=== PATIENT | male | born 1960 | race Caucasian/White ===

== ENCOUNTER 2016-09-28 07:52 | Observation (INO) | payer OTHER ==
[~2016-09-28] VITALS: Ht 162.6 cm; Wt 92.1 kg
[2016-09-28] VITALS (15 sets, daily range): BP systolic 101–177; BP diastolic 58–101
--- NOTE | ~2016-09-28 | H ---
[facility] [place] [address] HISTORY AND PHYSICAL Name: FERNANDO TOLEDO Room #: 203-P DIS Luis Daniel M.R.#: [id number] Admission: 09/28/16 Attend Phys: Simone Wright Discharge: 09/29/16 Date of : 60 Report #: [id number] THIS REPORT FOR: //name// For History and Physical, please see office documentation/handwritten note in the patient's medical record. <ELECTRONICALLY SIGNED> By: Simone Wright MD 10/08/16 1206 1016 Simone Wright MD /
--- NOTE | ~2016-09-28 | CATHLAB ---
[facility] [place] [place] [address] INVASIVE PROCEDURE REPORT Name: FERNANDO TOLEDO Room #: 203-P [facility] IN [facility]#: [id number] Admission: 09/28/16 Attend Phys: Simone Archibald Discharge: 09/29/16 Date of : 60 Date of Service: 10/03/16 2121 Report #: [id number] THIS REPORT FOR: //name// CC: Indira Wright DATE OF SERVICE: 09/28/2016 CARDIAC CATHETERIZATION REPORT INDICATIONS: This is a 55-year-old male patient with known coronary artery disease, recurrent crescendo angina and abnormal noninvasive assessment. PROCEDURES: 1. Left heart catheterization. 2. Left and right coronary angiography. 3. Measurement of left ventricular end-diastolic pressure. 4. Percutaneous revascularization with a Medtronic Resolute 2.5 x 15 mm stent taken to 12 atmospheres, placed in the proximal mid LAD. 5. Supervision of conscious sedation. WELL BLOWER: Simone Wright M.D. BRIEF DESCRIPTION OF PROCEDURE: After informed consent was obtained, the patient was brought to the cardiac catheterization laboratory in stable condition. The patient's right groin was prepped and draped in the usual sterile manner after which lidocaine was then instilled. Utilizing a modified Seldinger technique, the right femoral artery was then accessed. Under fluoroscopic visualization using selective coronary catheters, the right and left coronaries were opacified and visualized. The left ventriculogram was likewise imaged per standard protocol with EDP being measured. Subsequent to this, the sheath was removed, hemostasis achieved. The patient tolerated the procedure well. There were no complications. Planned angiography was . Percutaneous revascularization was appropriate. The 4-Haitian system was then exchanged for a 5-Haitian system and a standard left Everett 4-curve guide was advanced and cannulated through the left coronary ostium. Guidewires also have been utilized for intervention. A 0.014 intracoronary wire was then backloaded on to the stent and advancement of fluoroscopy. The wire was then advanced in the questionable lesion and subsequently a stent was positioned. Verification of location was done via fluoroscopy and cineangiography and the stent was inflated to 12 atmospheres. Result was excellent, without any loss of side branches or distal embolization. The previous stent that was present prior to this lesion had a 25% in-stent restenosis. A standard balloon was then utilized and the stent was re-dilated for a total of greater than 3 minutes inflation. There was no cutting balloon [address] [address] INVASIVE PROCEDURE REPORT Name: FERNANDO TOLEDO Room #: 203-P [facility] IN M.R.#: [id number] Admission: 09/28/16 Attend Phys: Simone Archibald Discharge: 09/29/16 Date of : 60 Date of Service: 10/03/162120 Report #: [id number] or balloon available in the institution. Therefore, a standard balloon was utilized. Subsequent to this, the wire and the balloon were removed and cineangiography final shots and final pressures were obtained. Throughout the entire procedure, Angiomax was utilized as well as continuous oximetric and electrocardiographic monitoring. FINDINGS: 1. RHYTHM: The patient's rhythm was sinus throughout the entire procedure. 2. HEMODYNAMICS: A. Aortic pressure 168/74. B. Left ventricular end-diastolic pressure is 24-26. C. Post-procedure aortic pressure: 168/84. 3. FLUOROSCOPY: Under fluoroscopic visualization, there was evidence of calcific plaquing along the epicardial coronary arteries. There was evidence of prior intracoronary stent placed. 4. ANGIOGRAPHY: This is a right coronary dominant system. A. Left main is normal origin and caliber, bifurcates into the left anterior descending and left circumflex and is free of high-grade disease. B. Left anterior descending is a moderate-caliber vessel, which courses in the anterior interventricular sulcus, giving rise to an early diagonal branch which has a 50% proximal lesion, which is not flow limiting. This vessel then reconstitutes and continues in the anterolateral wall, free of high-grade disease. The LAD proper then has the placement of an entire stent, which has a 70% proximal third re-stenosis. The mid and distal third of the stent appears to be only minimally restenosed, but after the stent is a high-grade 95% to 99% lesion of the LAD proper. The flow through the vessel was somewhat sluggish, but the vessel continues in the anterior interventricular sulcus, giving rise to septal and diagonal branches. C. Left circumflex is a moderate-caliber vessel, gives rise to an early marginal branch. It is free of high-grade disease. The circumflex than continues in the AV groove posteriorly, giving rise to posterolateral branches. D. Right coronary artery is of normal origin and caliber, dominant vessel. Proceeds without significant high-grade lesion, giving rise to an RV marginal branch and proceeding to the crux of the heart where posterior descending artery originates, free of high-grade disease. Posterior wall branch and posterolateral branch are also present. 5. POST-REVASCULARIZATION ANGIOGRAPHY: The left anterior descending artery is unchanged, except for the following: The site appears with high-grade stenosis. The vessel is widely patent. There is no loss of side branch, distal embolization or intraluminal thrombus noted. The proximal third of the previously deployed stent was improved with a 20% to 25% residual noted. [facility] [place] [address] INVASIVE PROCEDURE REPORT Name: PARISFERNANDO Oumar Room #: 203-P DIS IN M.R.#: [id number] Admission: 09/28/16 Attend Phys: Simone Archibald Discharge: 09/29/16 Date of : 60 Date of Service: 10/03/162120 Report #: [id number] IMPRESSION: 1. Coronary artery disease, severe, single vessel. 2. Successful percutaneous revascularization and re-expansion of a prior stent in the left anterior descending. 3. Abnormal hemodynamics. <ELECTRONICALLY SIGNED> By: Simone Wright MD 10/04/16 1317 20 1040 Simone Wright MD /nt
[~2016-09-28 07:52] MED LIST: ALBUTEROL2.5 MG/0.1 INH; ASPIR 8181 MG PO; COMBIVENT RESPIM4 GM IH; FLOVENT DISKU250 MCG IH; GLYBURID-METFO1 EACH PO; LANTUS SUBQ; LORTAB 10 MG-3473 ML PO; METFORMIN HCL500 MG PO
[2016-09-28] MEDS ORDERED: ALBUTEROL2.5 MG/31 INH (08:19)
[2016-09-28] MEDS ORDERED: LISINOPRIL20 MG PO (08:21)
[2016-09-28] MEDS ORDERED: LIPITOR 20 MG T20 M1 PO (08:22)
[2016-09-28] MEDS ORDERED: ASPIRIN325 PO (08:23)
[2016-09-28] MEDS ORDERED: NITROGLYCERIN0.4 MG SUBLING (08:24)
[2016-09-28] MEDS ORDERED: COMBIVENT INH (08:24)
[2016-09-28 08:29] LABS: HEMATOCRIT 43.7 % (42.0-52.0); HEMOGLOBIN 14.7 gm/dL (14.0-18.0); MCH 26.8 pg (26.0-34.0); MCHC 33.7 g/dL (28.0-37.0); MCV 79.4 fL (80.0-100.0); RBC 5.5 mil/uL (4.50-6.00); RDW 13.9 % (10.5-14.5); WBC 7.6 thou/uL (4.0-11.0)
[2016-09-28 08:36] LABS: CALCIUM 8.9 mg/dL (8.5-10.1); CREATININE 1.1 mg/dL (0.7-1.3); POTASSIUM 4.3 mmol/L (3.5-5.1)
[2016-09-29 02:59] VITALS: BP 138/79
[2016-09-29 03:45] LABS: HEMATOCRIT 40.6 % (42.0-52.0); HEMOGLOBIN 13.9 gm/dL (14.0-18.0); MCH 27.1 pg (26.0-34.0); MCHC 34.4 g/dL (28.0-37.0); RBC 5.14 mil/uL (4.50-6.00); RDW 14.3 % (10.5-14.5); WBC 8.8 thou/uL (4.0-11.0)
[2016-09-29 03:50] LABS: CALCIUM 8.5 mg/dL (8.5-10.1); CREATININE 1.1 mg/dL (0.7-1.3); POTASSIUM 3.9 mmol/L (3.5-5.1)
[2016-09-29 08:00] VITALS: BP 160/81
[2016-09-29] MEDS ORDERED: EFFIENT10 MG PO (10:02)
[2016-09-29 11:30] VITALS: BP 160/81
[2016-09-29 15:36] VITALS: BP 160/81
== END 2016-09-29 13:23 | disposition home or self-care (01) ==
LOC: CATH 07:52 → 2N 11:37 → CATH 15:55 → 2N 09-29 13:23
PROVIDERS: Internal Medicine
DX: I25.10 Atherosclerotic heart disease of native coronary artery without angina pectoris (principal); R94.39 Abnormal result of other cardiovascular function study; Z95.5 Presence of coronary angioplasty implant and graft; I10 Essential (primary) hypertension; E78.5 Hyperlipidemia, unspecified

== ENCOUNTER 2017-01-19 11:25 | Inpatient (IN) | payer OTHER ==
[~2017-01-19] VITALS: Ht 162.6 cm; Wt 94.8 kg
--- NOTE | ~2017-01-19 | EKG ---
[address] [place] [address] ELECTROCARDIOGRAM REPORT Name: FERNANDO TOLEDO Room #: 205-[facility] IN M.R.#: [id number] Admission: 01/19/17 Attend Phys: Cash Grigsby MD, Discharge: 01/20/17 Date of : 60 Report #: [id number] THIS REPORT FOR: //name// [facility] ED Test Date: 2017-01-19 Test Time: 11:33:17 Pat Name: FERNANDO TOLEDO Department: Room: [facility] Gender: M Paper Box Cutter: [id number] : 1960 Requested By: Nettie Kan Order Number: [id number] MD: Wyatt Meier Measurements Intervals [place] Rate: 83 P: 55 MS: 208 QRS: 43 QRSD: 91 T: 131 QT: 345 QTc: 406 Interpretive Statements Sinus rhythm Abnormal T, consider ischemia, lateral leads Compared to ECG 08/22/2016 12:55:14 No significant change was found Electronically Signed On 01-21-2017 8:57:02 CDT by Wyatt Meier [email or web address] <ELECTRONICALLY SIGNED> By: Wyatt Meier MD, [facility] 01/21/17 0857 1133 1133 Wyatt Meier MD, [facility] /EPI
--- NOTE | ~2017-01-19 | D ---
[facility] [place] [place] [address] DISCHARGE SUMMARY Name: FERNANDO TOLEDO Room #: 205-P ADM IN M.R.#: [id number] Admission: 01/19/17 Attend Phys: Cash Grigsby MD, Discharge: Date of : 60 Report #: [id number] THIS REPORT FOR: //name// CC: Indira Grigsby The patient is a 56-year-old male admitted with chest pain. This is different than what his anginal type pain was. He had undergone PTCA stent of the LAD proximal to our previously placed stent and redilated that proximal stent in September of this year, so 3 months ago. He has had some equivocal troponin when he came in, but interestingly he has never had a negative troponin. He is completely asymptomatic, walking in the halls, feeling well. No EKG changes are noted. He does have some baseline abnormalities on his EKG with subtle T-wave abnormalities laterally previously noted. He has been compliant with his medications. He works 2 jobs. He has been active. There has been no change on what he has been able to do. He will be discharged to home. I will discuss with Dr. Wright. I believe he is scheduled to see him in the next month or so, but I suspect we will want to push up a stress test to confirm he does not have any ischemia and I will in fact try to arrange an outpatient stress echo this week. He will call with any recurrent chest pain or pressure. His home medications will remain the same. They are aspirin, Effient, Lipitor 40, , insulin, metoprolol tartrate 25 b.i.d., Protonix 20, pioglitazone 15 and the Effient 10. Resume regular aerobic activity. May return to work. Call with any recurrent chest pain or pressure and we will arrange outpatient stress echo this week. DISCHARGE DIAGNOSES: 1. Chest pain with it appears to be chronically elevated troponin (the patient's troponins have never been negative). 2. Coronary artery disease with restenting in the proximal LAD proximal to our prior stent. Originally stent placed in 2015, second stent placed in September 2016, preserved LV function. 3. Hypertension. 4. Hypercholesterolemia. 5. Diabetes. 6. Suspected reflux. Also do recommend bland diet. Avoid citrus, red sauces, cokes and chocolate, obviously spicy, greasy foods. By: 1123 1200 Cash Grigsby MD, FACC /nt
--- NOTE | ~2017-01-19 | EKG ---
[address] [place] [address] ELECTROCARDIOGRAM REPORT Name: FERNANDO TOLEDO Room #: 205[facility] IN M.R.#: [id number] Admission: 01/19/17 Attend Phys: Cash Grigsby MD, Discharge: 01/20/17 Date of : 60 Report #: [id number] THIS REPORT FOR: //name// [facility] Test Date: 2017-01-20 Test Time: 07:50:08 Pat Name: FERNANDO TOLEDO Department: Room: 205 Gender: M Parking Attendant: DOUGLAS : 1960 Requested By: Nettie Kan Order Number: [id number] MD: Wyatt Meier Measurements Intervals [place] Rate: 75 P: 51 [place]: 193 QRS: 39 QRSD: 121 T: 127 QT: 368 QTc: 411 Interpretive Statements Sinus rhythm Abnormal T, consider ischemia, lateral leads Compared to ECG 08/22/2016 12:55:14 No significant change was found Electronically Signed On 01-21-2017 9:05:22 CDT by Wyatt Meier [email or web address] <ELECTRONICALLY SIGNED> By: Wyatt Meier MD, [facility] 01/21/17 0905 0750 0750 Wyatt Meier MD, [facility] /EPI
--- NOTE | ~2017-01-19 | H ---
[facility] [place] [place] [address] HISTORY AND PHYSICAL Name: FERNANDO TOLEDO Room #: 205-P ADM IN M.R.#: [id number] Admission: 01/19/17 Attend Phys: Cash Grigsby MD, Discharge: Date of : 60 Report #: [id number] THIS REPORT FOR: //name// CC: Indira Grigsby DATE OF SERVICE: 01/19/2017 HISTORY OF PRESENT ILLNESS: The patient is a 56-year-old male patient of Dr. Tejeda'hernan and Dr. Wright, who had been stable since his last stent was placed in 09/2016, it was an LAD stent distal to proximal to prior other stent and then prior stent was dilated. The circumflex and the RCA did not have significant disease. 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 He did drive some relief of his chest pain from nitro. He has an equivocal troponin 0.76 and repeat was 0.72. It is interesting that he has never had a negative troponin in this hospital, all troponins have been mildly elevated, so it maybe a chronically elevated troponin issue. In any event, he had no issues until tonight, he has had no pain here, he has no pain in the emergency room, he does have nitro paste and I did give him a shot of Lovenox. He feels well. He is comfortable. He has been compliant with his medications. Chest x-ray is unremarkable. He has been on lisinopril 20, Lipitor 20, Actos 30, metoprolol 25 twice daily, aspirin and Effient. We will restart these and holding lisinopril. PAST MEDICAL HISTORY: Positive for the hypertension, hypercholesterolemia, the stent placement initially in 12/2015 and then restented in 09/2016, diabetes and DJD. ALLERGIES: No known drug allergies. SOCIAL HISTORY: He is . He has 3 children. No current alcohol or tobacco use. He works 2 jobs. FAMILY HISTORY: Negative for premature coronary disease. REVIEW OF SYSTEMS: Negative except for some occasional nocturia. LABORATORY DATA: Troponin was 0.76 and 0.72. Again, I make note that every troponin drawn here in the past has never been negative. Creatinine is 1.3. Potassium 4.9. H and H are 13 and 39, white count is 8.5. PHYSICAL EXAMINATION: [facility] [address] [place] [address] HISTORY AND PHYSICAL Name: FERNANDO TOLEDO Room #: 205-P [facility] IN M.R.#: [id number] Admission: 01/19/17 Attend Phys: Cash Grigsby MD, Discharge: Date of : 60 Report #: [id number] GENERAL: He is pleasant and alert. He is in no distress. VITAL SIGNS: Blood pressure 140/84, pulse 68. HEENT: Eyes reveal xanthelasmas. Pharynx is clear. NECK: Shows preserved upstrokes without JVD or bruits. LUNGS: Clear. CARDIOVASCULAR: Regular rate and rhythm, S1, S2. ABDOMEN: Soft, slightly tender in the midepigastric. EXTREMITIES: Reveal no edema. Pulses were intact. NEUROLOGIC: Nonfocal. SKIN: Warm and dry without xanthoma or ulcer. MUSCULOSKELETAL: No gross joint deformity. ASSESSMENT: 1. Chest pain with slightly elevated troponin. It appears he has chronically elevated troponin. 2. Coronary artery disease with initial left anterior descending stent in 2015, second left anterior descending stent added 09/2016. No circumflex or right coronary artery disease. 3. Hypertension. 4. Hypercholesterolemia. 5. Diabetes. 6. Suspect possible gastrointestinal etiology. RECOMMENDATIONS AND PLAN: We will restart medications obviously his lipids are not well-controlled. He states he has been taking his medicines. I would increase his Lipitor from 20 to 80 and those are old cholesterol numbers, I will repeat that lipid in the morning. In any event, I would still increase to 80 mg until we can differential whether this is recurrent ischemia. Troponin, EKG in the morning. Continue with Lovenox and would consider obviously stress test or repeat cardiac catheterization, although it is unusual to have significant restenosis in three months, this was discussed with the patient in detail for further evaluation in the morning. By: 1832 45 Cash Grigsby MD, FACC /nt
[~2017-01-19 11:25] MED LIST changes: +ALBUTEROL2.5 MG/31 INH; +ASPIRIN325 PO; +COMBIVENT INH; +EFFIENT10 MG PO; +LIPITOR 20 MG T20 M1 PO; +LISINOPRIL20 MG PO; +NITROGLYCERIN0.4 MG SUBLING
[2017-01-19 11:31] VITALS: BP 176/93
[2017-01-19 11:45] LABS: ABSOLUTE NEUTROPHILS 5.7 thou/uL (1.4-8.2); BASOPHILS 1.1 % (0.0-2.0); EOSINOPHILS 7.6 % (0.0-3.0); HEMATOCRIT 39.9 % (42.0-52.0); HEMOGLOBIN 13.5 gm/dL (14.0-18.0); LYMPHOCYTES 15.7 % (24.0-44.0); MCH 27.5 pg (26.0-34.0); MCHC 33.8 g/dL (28.0-37.0); MCV 81.4 fL (80.0-100.0); PLATELET COUNT 152 thou/uL (150-400); POLYS 67.6 % (36.0-66.0); RDW 14.5 % (10.5-14.5); WBC 8.5 thou/uL (4.0-11.0)
[2017-01-19 11:46] LABS: MANUAL DIFF NO
[2017-01-19 11:56] LABS: PROTIME 9.6 Seconds (9.3-11.4)
[2017-01-19 12:24] LABS: CALCIUM 8.6 mg/dL (8.5-10.1); CREATININE 1.3 mg/dL (0.7-1.3); POTASSIUM 4.9 mmol/L (3.5-5.1)
[2017-01-19 12:32] LABS: ALBUMIN 3.1 g/dL (3.4-5.0); TOTAL BILIRUBIN 0.4 mg/dL (<0.1-1.0); TOTAL PROTEIN 6.4 g/dL (6.4-8.2)
[2017-01-19 12:36] LABS: TROPONIN-I 0.76 ng/mL (<0.04-0.07)
[2017-01-19 13:16] VITALS: BP 146/63
[2017-01-19 13:36] VITALS: BP 140/65
[2017-01-19] MEDS ORDERED: FLOVENT HFA 2220 MCG INH (13:47)
[2017-01-19] MEDS ORDERED: PIOGLITAZONE15 MG (13:49)
[2017-01-19] MEDS ORDERED: LOPRESSOR25 PO (13:50)
[2017-01-19] MEDS ORDERED: HUMALOG100 UNIT/1 SUBQ (14:12)
[2017-01-19 16:32] VITALS: BP 146/84
[2017-01-19 19:23] VITALS: BP 140/74
[2017-01-19 23:26] VITALS: BP 148/86
[2017-01-20 03:29] VITALS: BP 137/75
[2017-01-20 07:08] LABS: CHOLESTEROL 177 mg/dL (<200); HDL CHOLESTEROL 62 mg/dL (>40); LDL CHOLESTEROL 92 mg/dL (<100); TC:HDL 2.9 Ratio (Not establshd); TRIGLYCERIDE 117 mg/dL (<150); VLDL 23 mg/dL (<40)
[2017-01-20 07:40] VITALS: BP 136/74
[2017-01-20 10:04] VITALS: BP 136/74
[2017-01-20 11:40] VITALS: BP 143/78
[2017-01-20] MEDS ORDERED: ATORVASTATIN CA40 MG PO (12:03)
[2017-01-20 13:12] VITALS: BP 136/74
== END 2017-01-20 13:08 | disposition home or self-care (01) | DRG 313 ==
LOC: ER 11:25 → 2N 13:00 → EROBS 13:00 → 2N 13:18
PROVIDERS: Internal Medicine Cardiovascular Disease; Physician Assistant
DX: R07.9 Chest pain, unspecified (principal); E87.1 Hypo-osmolality and hyponatremia; K21.9 Gastro-esophageal reflux disease without esophagitis; E11.9 Type 2 diabetes mellitus without complications; J45.909 Unspecified asthma, uncomplicated; I25.10 Atherosclerotic heart disease of native coronary artery without angina pectoris; E78.00 Pure hypercholesterolemia, unspecified; I10 Essential (primary) hypertension; M19.90 Unspecified osteoarthritis, unspecified site; I25.2 Old myocardial infarction; Z95.5 Presence of coronary angioplasty implant and graft
CPT/HCPCS: 10081

== ENCOUNTER 2017-02-08 13:53 | Inpatient (IN) | payer OTHER ==
[2017-02-08] VITALS (9 sets, daily range): BP systolic 135–170; BP diastolic 79–94
[~2017-02-08] VITALS: Ht 162.6 cm; Wt 95.3 kg
--- NOTE | ~2017-02-08 | EKG ---
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: TK : 1960 Requested By: Wyatt Meier Order Number: [id number] MD: Wyatt Meier Measurements Intervals [place] Rate: 88 P: 56 [place]: 201 QRS: 26 QRSD: 92 T: 106 QT: 356 QTc: 431 Interpretive Statements Sinus rhythm Probable left atrial enlargement Borderline repolarization abnormality Compared to ECG 01/20/2017 07:50:08 ST and T wave abnormality is less pronounced Electronically Signed On 02-09-2017 9:58:28 CDT by Wyatt Meier [email or web address] <ELECTRONICALLY SIGNED> By: Wyatt Meier MD, [facility] 02/09/17 0958 0755 0755 Wyatt Meier MD, [facility] /EPI
--- NOTE | ~2017-02-08 | EKG ---
[address] [place] [address] ELECTROCARDIOGRAM REPORT Name: FERNANDO TOLEDO Room #: 209-P ADM IN M.R.#: [id number] Admission: 02/08/17 Attend Phys: Indira Tejeda MD Discharge: Date of : 60 Report #: [id number] THIS REPORT FOR: //name// [facility] ED Test Date: 2017-02-08 Test Time: 13:56:11 Pat Name: FERNANDO TOLEDO Department: Room: 209 Gender: M Box Puller: JANAY : 1960 Requested By: Nelia Davies Order Number: [id number] MD: Wyatt Meier Measurements Intervals [place] Rate: 86 P: 46 [place]: 177 QRS: 35 QRSD: 91 T: 129 QT: 342 QTc: 409 Interpretive Statements Sinus rhythm Abnormal T, consider ischemia, lateral leads Compared to ECG 01/20/2017 07:50:08 No significant changes Electronically Signed On 02-09-2017 9:51:50 CDT by Wyatt Meier [email or web address] <ELECTRONICALLY SIGNED> By: Wyatt Meier MD, [facility] 02/09/17 0951 1356 55 Wyatt Meier MD, [facility] /EPI
--- NOTE | ~2017-02-08 | EKG ---
[address] [place] [address] ELECTROCARDIOGRAM REPORT Name: FERNANDO TOLEDO Room #: 209-P ADM IN M.R.#: [id number] Admission: 02/08/17 Attend Phys: Indira Tejeda MD Discharge: Date of : 60 Report #: [id number] THIS REPORT FOR: //name// [facility] Test Date: 2017-02-08 Test Time: 19:06:29 Pat Name: FERNANDO TOLEDO Department: Room: 209 P Gender: M Debt Counselor: Oumar DUNN : 1960 Requested By: Wyatt Meier Order Number: [id number] MD: Wyatt Meier Measurements Intervals [place] Rate: 78 P: 45 [place]: 195 QRS: 33 QRSD: 88 T: 149 QT: 378 QTc: 431 Interpretive Statements Sinus rhythm Repol abnrm suggests ischemia, anterolateral Compared to ECG 01/20/2017 07:50:08 no significant change was found Electronically Signed On 02-09-2017 9:56:39 CDT by Wyatt Meier [email or web address] <ELECTRONICALLY SIGNED> By: Wyatt Meier MD, [facility] 02/09/17 0956 1906 05 Wyatt Meier MD, [facility] /EPI
--- NOTE | ~2017-02-08 | CATHLAB ---
[facility] [place] [address] INVASIVE PROCEDURE REPORT Name: FERNANDO TOLEDO Room #: 209-P [facility] IN [facility]#: [id number] Admission: 02/08/17 Attend Phys: Indira Tejeda MD Discharge: Date of : 60 Date of Service: 02/08/17 1857 Report #: [id number] THIS REPORT FOR: //name// APPROVED REPORT Patient Details The patient is a 56 year-old male Event Personnel Jf, Christie VILLARREAL RN, Claudia Jackson RN RN, Mady Grier, Jodi Carreon, Wyatt Meier Utility Gelatin Maker Procedures Performed Art Access - R femoral artery* 79273 Initial Mod Sed Same Phys/QHP Gr5y 034378 21372 Mod Sed Same Phys/QHP Ea 120987 [facility]SC[facility] Place w/wo Plasty Single LAD 031660 [facility] Indication Non-STEMI Risk Factors Dysplipidemia , Hypercholesterolemia, Hypertension Previous Procedures/Diagnoses Previous PCI Admission/Lab Medications/Medications given during procedure Glycoprotein IllbIlla Inhibitors, Lipid Lowering Agents, Platelet Aff. Inhib., Heparin Unfract. Procedure Narrative The Right Groin^ was infiltrated with 1% Lidocaine subcutaneous anesthesia. A PINNACLE 6FR Sheath #[id number] sheath was inserted into the RFA^. Coronary angiography was performed using coronary diagnostic catheters. The right coronary system was accessed and visualized with a JR4 catheter. The left coronary system was accessed and visualized with a JL4 catheter. The left ventricle was accessed and visualized with a Pigtail catheter. Left ventricular/Aortic Valve gradient assessed via catheter pullback. Left ventriculogram was performed in ORTIZ projection. The patient tolerated the procedure well and there were no complications associated with the procedure. There was no hematoma. Intraoperative Conscious Sedation [facility] [address] [place] [address] INVASIVE PROCEDURE REPORT Name: FERNANDO TOLEDO Room #: 209-P [facility] IN ..#: [id number] Admission: 02/08/17 Attend Phys: Indira Tejeda MD Discharge: Date of : 60 Date of Service: 02/08/17 1857 Report #: [id number] Sedation start time: 1725 Case end Time: 1816 Fentanyl 100 mcg Versed 2 mg Fluoro Time: 17.25 minutes Dose: DAP 5636.00 cGycm2 2818 mGy Contrast Type and Amount: Omnipaque 335 ml Coronary Angiography The patient's coronary anatomy is right dominant. [place] Artery Percent Stenosis Left Main: 0 % Prox LAD: 95 % Mid/Distal LAD: 0 % Circumflex: 0 % RCA: 10 % Ramus: 10 %Severe intrastent stenosis within proximal LAD stent placed approximately 1yr ago ([facility]); recent PTCA 1mo ago ([place]) Diagnostic Cath Left Main Nomal LAD 95% proximal LAD intrastent stenosis. Diagonal 1 Mild 10% plaquing Circumflex Mild plaquing Right Coronary Mild proximal plaquing 20-30% R PDA Normal RPLV Normal Ramus Large ramus branch with proximal 20-30% plaquing Left Ventriculography The left ventricle is normal in size with normal contractility. The left ventricular ejection fraction is estimated to be 60-65%. Left ventricular wall motion abnormalities are not present. There is no mitral insufficiency. Hemodynamics The aortic pressure is 198/58 mmHg with a mean of 99 mmHg. The left ventricular pressure is 168/13 mmHg with a mean of mmHg. The left ventricular end diastolic pressure is 28 mmHg. There was no gradient across the aortic valve upon pullback. PCI Technique Lesion Anticoagulation was achieved with Heparin. Patient was preloaded with Effient. Percutaneous coronary intervention was performed on the proximal left anterior descending artery segment. A VISTA 6FR JL4 #[id number] Guide Catheter was used to engage the LCA ostium. A Luge Wire .014 x 182CM #[id number] Interventional Guidewire was used to cross the lesion. [facility] [place] [address] INVASIVE PROCEDURE REPORT Name: FERNANDO TOLEDO Room #: 209-P [facility] IN M.R.#: [id number] Admission: 02/08/17 Attend Phys: Indira Tejeda MD Discharge: Date of : 60 Date of Service: 02/08/17 1857 Report #: [id number] BALLOON DILATION A Balloon catheter TREK NC RX 2.75 X 12 #[id number] was inserted and inflated up to 12.00atm for 33seconds. Additional Inflation: 14.00atm for 34seconds. Additional Inflation: 18.00atm for 27seconds. STENT DEPLOYMENT A drug-eluting stent RESOLUTE RX 3.0 X 15 #[id number] was inserted and inflated up to 12.00atm for 30seconds. POST STENT DEPLOYMENT BALLOON DILATION A Balloon catheter TREK NC RX 3.0 X 15 #[id number] was inserted and inflated up to 22.00atm for 30seconds. Additional Inflation: 22.00atm for 30seconds. Final angiography reveals 0 % stenosis with JENNIFER 3 flow. Conclusion Ventriculography: Normal global and regional left ventricular systolic function. Ejection fraction 65%. Mitral regurgitation was absent. Coronary Angiography 1. LM normal 2. Severe proximal LAD intrastent stenosis. Restented with 3.0 x 15 Resolute. Post dilated to 3.2mm with non-compliant balloon 3. Mild ramus and circumflex plaquing 4. RCA dominant with mild 20-30% proximal plaquing Recommendations Cardiac Rehabilitation Referral Cardiac Risk Reduction Program Aggressive Medical Therapy Medications Administered MONICA Inhibitor (any) Aspirin (any) Beta Rayo (any) Statin (any) Prasugrel Cardiac Rehabilitation Referral <ELECTRONICALLY SIGNED> By: Wyatt Meier MD, [facility] 02/08/171856 56 56 Wyatt Meier MD, FAC /INF
[~2017-02-08 13:53] MED LIST changes: +ATORVASTATIN CA40 MG PO; +FLOVENT HFA 2220 MCG INH; +HUMALOG100 UNIT/1 SUBQ; +LOPRESSOR25 PO; +PIOGLITAZONE15 MG
[2017-02-08 14:16] LABS: ABSOLUTE NEUTROPHILS 4.8 thou/uL (1.4-8.2); BASOPHILS 1.5 % (0.0-2.0); EOSINOPHILS 4.4 % (0.0-3.0); HEMATOCRIT 37.8 % (42.0-52.0); LYMPHOCYTES 15.8 % (24.0-44.0); MANUAL DIFF NO; MCH 27.7 pg (26.0-34.0); MCHC 34.5 g/dL (28.0-37.0); MCV 80.3 fL (80.0-100.0); MONOCYTES 5.8 % (1.0-8.0); PLATELET COUNT 155 thou/uL (150-400); POLYS 72.5 % (36.0-66.0); RBC 4.71 mil/uL (4.50-6.00); RDW 14.3 % (10.5-14.5); WBC 6.7 thou/uL (4.0-11.0)
[2017-02-08 14:32] LABS: CALCIUM 8.4 mg/dL (8.5-10.1); CREATININE 1.2 mg/dL (0.7-1.3); POTASSIUM 4.1 mmol/L (3.5-5.1)
[2017-02-08 14:41] LABS: ALBUMIN 2.9 g/dL (3.4-5.0); TOTAL BILIRUBIN 0.5 mg/dL (<0.1-1.0); TOTAL PROTEIN 6.1 g/dL (6.4-8.2); TROPONIN-I 0.45 ng/mL (<0.04-0.07)
[2017-02-08 15:11] LABS: PROTIME 9.3 Seconds (9.3-11.4)
[2017-02-09] VITALS (7 sets, daily range): BP systolic 104–159; BP diastolic 71–94
[2017-02-09 05:21] LABS: HEMATOCRIT 40.5 % (42.0-52.0); HEMOGLOBIN 13.4 gm/dL (14.0-18.0); MCH 27.1 pg (26.0-34.0); MCHC 33.1 g/dL (28.0-37.0); MCV 81.7 fL (80.0-100.0); RBC 4.96 mil/uL (4.50-6.00); RDW 14.4 % (10.5-14.5); WBC 12.7 thou/uL (4.0-11.0)
[2017-02-09 05:39] LABS: CALCIUM 8.5 mg/dL (8.5-10.1); CREATININE 1.3 mg/dL (0.7-1.3); POTASSIUM 4.6 mmol/L (3.5-5.1); TROPONIN-I 0.43 ng/mL (<0.04-0.07)
[2017-02-09] MEDS ORDERED: LOPRESSOR50 PO (11:32)
[2017-02-09] MEDS ORDERED: GLUCOPHAGE XR500 MG PO (11:34)
[2017-02-09] MEDS ORDERED: LEVEMIR100 UNIT/1 SUBQ (11:35)
== END 2017-02-09 13:19 | disposition home or self-care (01) | DRG 247 ==
LOC: ER 13:53 → EROBS 15:23 → 2N 15:23
PROVIDERS: Internal Medicine; Nurse Practitioner Family
PROC: B2151ZZ Fluoroscopy of Left Heart using Low Osmolar Contrast (ICD-10-PCS; principal; 2017-02-08)
PROC: B2111ZZ Fluoroscopy of Multiple Coronary Arteries using Low Osmolar Contrast (ICD-10-PCS; principal; 2017-02-08)
PROC: 027034Z Dilation of Coronary Artery, One Artery with Drug-eluting Intraluminal Device, Percutaneous Approach (ICD-10-PCS; principal; 2017-02-08)
PROC: 4A023N7 Measurement of Cardiac Sampling and Pressure, Left Heart, Percutaneous Approach (ICD-10-PCS; principal; 2017-02-08)
DX: I21.4 Non-ST elevation (NSTEMI) myocardial infarction (principal); J45.909 Unspecified asthma, uncomplicated; I25.110 Atherosclerotic heart disease of native coronary artery with unstable angina pectoris; E11.65 Type 2 diabetes mellitus with hyperglycemia; E66.9 Obesity, unspecified; E78.5 Hyperlipidemia, unspecified; M19.90 Unspecified osteoarthritis, unspecified site; I10 Essential (primary) hypertension; E11.319 Type 2 diabetes mellitus with unspecified diabetic retinopathy without macular edema; Z68.36 Body mass index [BMI] 36.0-36.9, adult; Z91.14 Patient's other noncompliance with medication regimen; Z95.5 Presence of coronary angioplasty implant and graft; Z79.899 Other long term (current) drug therapy; Z84.1 Family history of disorders of kidney and ureter; Z83.3 Family history of diabetes mellitus; Z82.49 Family history of ischemic heart disease and other diseases of the circulatory system; Z79.82 Long term (current) use of aspirin
CPT/HCPCS: 10081

== ENCOUNTER 2018-01-23 16:35 | Inpatient (IN) | payer OTHER ==
[~2018-01-23] VITALS: Ht 162.6 cm; Wt 101.9 kg
--- NOTE | ~2018-01-23 | EKG ---
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 Teacher: EDIE : 1960 Requested By: Francisco Restrepo Order Number: [id number] MD: Francisco Restrepo Measurements Intervals [place] Rate: 81 P: 66 MT: 195 QRS: 46 QRSD: 92 T: 168 QT: 359 QTc: 417 Interpretive Statements Sinus rhythm Probable left atrial enlargement Repol abnrm suggests ischemia, lateral leads Baseline wander in lead(s) V6 Compared to ECG 01/24/2018 06:33:17 No significant changes Electronically Signed On 01-25-2018 10:18:11 CDT by Francisco Restrepo [email or web address] <ELECTRONICALLY SIGNED> By: Francisco Restrepo MD 01/25/18 1018 0744 Francisco Restrepo MD /BABS
--- NOTE | ~2018-01-23 | EKG ---
[place] [address] [facility] [place] [address] ELECTROCARDIOGRAM REPORT Name: FERNANDO TOLEDO Room #: 210-P ADM IN M.R.#: [id number] Admission: 01/23/18 Attend Phys: Indira Tejeda MD Discharge: Date of : 60 Report #: [id number] THIS REPORT FOR: //name// [facility] ED Test Date: 2018-01-23 Test Time: 16:51:14 Pat Name: FERNANDO TOLEDO Department: Room: 210 Gender: M Verifying Machine Operator: ADELAIDA : 1960 Requested By: Nettie Kan Order Number: [id number] MD: Wyatt Meier Measurements Intervals [place] Rate: 96 P: 70 NV: 186 QRS: 38 QRSD: 92 T: 136 QT: 334 QTc: 422 Interpretive Statements Sinus rhythm Anterior infarct, old Repol abnrm suggests ischemia, lateral leads Compared to ECG 10/10/2017 08:48:51 Criteria for septal infarct now present Electronically Signed On 01-24-2018 8:30:24 CDT by Wyatt Meier [email or web address] <ELECTRONICALLY SIGNED> By: Wyatt Meier MD, [facility] 01/24/18 0830 1651 1651 Wyatt Meier MD, [facility] /EPI
--- NOTE | ~2018-01-23 | EKG ---
[place] [address] [facility] [place] [address] ELECTROCARDIOGRAM REPORT Name: FERNANDO TOLEDO Room #: 210-P ADM IN M.R.#: [id number] Admission: 01/23/18 Attend Phys: Indira Tejeda MD Discharge: Date of : 60 Report #: [id number] THIS REPORT FOR: //name// 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: JESUS : 1960 Requested By: Cash Grigsby Order Number: [id number] MD: Wyatt Meier Measurements Intervals [place] Rate: 76 P: 60 TN: 204 QRS: 37 QRSD: 85 T: 171 QT: 376 QTc: 423 Interpretive Statements Sinus rhythm Borderline prolonged TN interval Probable left atrial enlargement Repol abnrm suggests ischemia, lateral Compared to ECG 10/10/2017 08:48:51 No significant changes Electronically Signed On 01-24-2018 8:55:57 CDT by Wyatt Meier [email or web address] <ELECTRONICALLY SIGNED> By: Wyatt Meier MD, [facility] 01/24/18 0855 0633 0633 Wyatt Meier MD, [facility] /EPI
--- NOTE | ~2018-01-23 | HC ---
[facility] [place] [address] CONSULTATION Name: FERNANDO TOLEDO Room #: 210-P [facility] IN M.R.#: [id number] Admission: 01/23/18 Attend Phys: Indira Tejeda MD Discharge: 01/25/18 Date of : 60 Report #: [id number] THIS REPORT FOR: //name// CC: Indira Tejeda HISTORY OF PRESENT ILLNESS: The patient is a 57-year-old male who has been followed by my partner, Dr. Wright and was stented in-stent restenosis in his proximal LAD last year by Dr. Meier. He was recently hospitalized 4 months ago with some atypical chest pain, ruled out and sent home. No stress test. He has been doing well, but has been having some cough and cold symptoms, some mild anorexia in the last couple of days. He is a nonsmoker. He does not have a history of lung disease. He was, however, intubated for asthma, so I am not sure that he is a real accurate historian, although is young and still works. He has had limited anterior infarct. His initial stent was in 12/2015, then 09/2016 and then I believe last re-stented by Dr. Meier in 01/2017. He has a chronically elevated troponin always running between 0.2 and 0.6 and it is 0.8 tonight. There are no associated EKG changes. He appears comfortable and pain free at this time. He states he has been compliant with his medications, which are metoprolol 50 b.i.d., metformin 1000 b.i.d., insulin, lisinopril 20 b.i.d., atorvastatin 80 mg, albuterol, Levemir, Imdur 30, Plavix 75 and Besivance ophthalmic. ALLERGIES: No known drug allergies. SOCIAL HISTORY: He is . No alcohol or tobacco. 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 He walks during the night extensively. Three sons. FAMILY HISTORY: Negative for premature coronary artery disease. PAST MEDICAL HISTORY: Positive for coronary artery disease with stent x 3 now, limited infarct with preserved LV function, hypertension, hypercholesterolemia, diabetes, asthma, left buttock cyst, chronically elevated troponin and diabetes with mild retinopathy. PHYSICAL EXAMINATION: GENERAL: He is pleasant, alert, in no distress. VITAL SIGNS: Blood pressure 160/80, pulse is 90 and regular. HEENT: Eyes reveal xanthelasmas. Pharynx is clear. NECK: Shows preserved upstrokes without JVD or bruits. LUNGS: Clear ____. CARDIOVASCULAR: Regular rate and rhythm, S1, S2 distant. ABDOMEN: Obese and nontender. EXTREMITIES: Reveal trace edema. His pulses diminished. NEUROLOGIC: Nonfocal. SKIN: Warm and dry without xanthoma or ulcer. MUSCULOSKELETAL: Generalized arthritic changes. [address] [address] CONSULTATION Name: FERNANDO TOLEDO Room #: 210-P [facility] IN M.R.#: [id number] Admission: 01/23/18 Attend Phys: Indira Tejeda MD Discharge: 01/25/18 Date of : 60 Report #: [id number] LABORATORY DATA: Creatinine 1.4, potassium 4.3, glucose 400 and alkaline phosphatase 119. GFR 52. Troponin ____ and generally running between 0.2 and 0.6. No lipids. H and H 14 and 42, white count 9.1 and platelets 178. Chest x-ray is negative, normal chest. ASSESSMENT: 1. Chest pain with equivocal troponin elevation of 0.8. 2. Coronary artery disease with three stents to left anterior descending last one year prior 01/2017. Preserved ventricular function. 3. Hypertension. 4. Hypercholesterolemia. 5. Diabetes, poorly controlled, noncompliant with retinopathy. RECOMMENDATIONS AND PLAN: We will repeat troponin and EKG in the morning. If no significant change, we will proceed with stress echo. He states that he does walk and can do a stress echo. I will check a hemoglobin A1c and a lipid. If the stress echo is not showing significant ischemia, would consider discharge. If abnormal, then we will need to repeat cardiac catheterization. This has been discussed in detail with his family who is present. We will hold metformin in the a.m. for possible contrast. This has been discussed in detail with the patient and he does elect to proceed. <ELECTRONICALLY SIGNED> By: Cash Grigsby MD, FACC 01/29/18 1029 2122 0550 Cash Grigsby MD, FACC /nt
--- NOTE | ~2018-01-23 | EXE ---
[facility] [address] [employer] [place] [address] STRESS ECHOCARDIOGRAM Name: FERNANDO TOLEDO Room #: 210-P [facility] IN .R.#: [id number] Admission: 01/23/18 Attend Phys: Indira Tejeda MD Discharge: Date of : 60 Date of Service: 01/24/18 1422 Report #: [id number] THIS REPORT FOR: //name// APPROVED REPORT Study performed: 01/24/2018 08:24:18 Exam: Stress Echocardiogram Indication: Chest pain Patient Location: Echo lab Stress Nurse: Marta Vasques RN Room #: 210 Status: routine Ht: 5 ft 4 in HR: 79 bpm BP: 146/90 mmHg Rhythm: NSR Medical History Medical History: CAD s/p stent Cardiac Risk Factors: HTN, Hyperlipidemia, DM Previous Cardiac Procedures: PCI Exercise History: Sedentary Procedure The patient underwent an Exercise Stress Test using the [place] Protocol. Blood pressure, heart rate, and EKG were monitored. An Echocardiogram was performed by identification technician in four stages in quad fashion. At peak stress, four selected images were obtained and placed side by side with resting images for comparison. Stress Test Details Stress Test: Exercise stress testing was performed using a Glen protocol. HR Resting HR: 79 bpm Max Heart Rate (APMHR): 163 bpm Max HR Achieved: 150 bpm Target HR (85% APMHR): 138 bpm % of APMHR: 92 Recovery HR: 96 bpm HR response to stress: Normal HR response to stress BP Resting BP: 146/90 mmHg Max BP: 188/102 mmHg Recovery BP: 178/96 mmHg [facility] [address] [place] [address] STRESS ECHOCARDIOGRAM Name: FERNANDO TOLEDO Room #: 210-P [facility]#: [id number] Admission: 01/23/18 Attend Phys: Indira Tejeda MD Discharge: Date of : 60 Date of Service: 01/24/181421 Report #: [id number] ECG Clinical Reason for Termination: Maximal effort Stress Symptoms: Dyspnea Exercise duration: 5 min 5 sec Highest Stage Achieved: Stage 2: 2.5 mph at 12% grade. Exercise capacity: 7 METs Overall Exercise Capacity for Age: Poor Pre-Stress Echo The resting Echocardiogram showed normal left ventricular contractility with an estimated Ejection Fraction of about 55-60%. Post-Stress Echo The stress Echocardiogram showed abnormal left ventricular contractility with an estimated Ejection Fraction of about >55%. The stress Echocardiogram demonstrated wall motion abnormality in the apical septal wall. Conclusion Clinical Response: Ischemic Exercise Capacity: Below Average Stress ECG Response: Ischemic Stress Echo Images: Ischemic Other Information Study Quality: Adequate <ELECTRONICALLY SIGNED> By: Cash Grigsby MD, [facility] 01/24/18 142 21 21 Cash Grigsby MD, FACC /INF
[~2018-01-23 16:35] MED LIST changes: +BESIVANCE5 ML OPHTHALMIC; +GLUCOPHAGE XR500 MG PO; +HUMULIN R100 UNIT/M SUBQ; +IMDUR 30 MG TAB30 M1 PO; +LEVEMIR SUBQ; +LEVEMIR100 UNIT/1 SUBQ; +LOPRESSOR50 PO; +MOBIC15 MG PO; +PLAVIX 75 MG TA75 M1 PO
[2018-01-23 16:37] VITALS: BP 146/69
[2018-01-23 16:57] LABS: ABSOLUTE NEUTROPHILS 6.8 thou/uL (1.4-8.2); BASOPHILS 0.7 % (0.0-2.0); EOSINOPHILS 4.7 % (0.0-3.0); HEMATOCRIT 42.4 % (42.0-52.0); HEMOGLOBIN 14.4 gm/dL (14.0-18.0); MCH 27.1 pg (26.0-34.0); MCHC 33.9 g/dL (28.0-37.0); MONOCYTES 7.1 % (1.0-8.0); PLATELET COUNT 178 thou/uL (150-400); POLYS 74.5 % (36.0-66.0); WBC 9.1 thou/uL (4.0-11.0)
[2018-01-23 17:15] LABS: CALCIUM 8.3 mg/dL (8.5-10.1); CREATININE 1.4 mg/dL (0.7-1.3); POTASSIUM 4.3 mmol/L (3.5-5.1)
[2018-01-23 17:24] LABS: ALBUMIN 2.8 g/dL (3.4-5.0); TOTAL BILIRUBIN 0.4 mg/dL (<0.1-1.0); TOTAL PROTEIN 6.3 g/dL (6.4-8.2)
[2018-01-23 17:25] LABS: TROPONIN-I 0.83 ng/mL (<0.06)
[2018-01-23] MEDS ORDERED: HUMULIN R100 UNIT/M SUBQ ×2 (18:15)
[2018-01-23 19:11] VITALS: BP 146/69
[2018-01-23 19:16] VITALS: BP 137/68
[2018-01-23 20:30] VITALS: BP 165/80
[2018-01-23 23:41] VITALS: BP 144/84
[2018-01-24 04:45] VITALS: BP 144/65
[2018-01-24 05:07] LABS: CHOLESTEROL 118 mg/dL (<200); HDL CHOLESTEROL 44 mg/dL (>40); LDL CHOLESTEROL 58 mg/dL (<100); TC:HDL 2.7 Ratio (Not establshd); TRIGLYCERIDE 84 mg/dL (<150); VLDL 17 mg/dL (<40)
[2018-01-24 05:08] LABS: ALBUMIN 2.7 g/dL (3.4-5.0); CALCIUM 8.3 mg/dL (8.5-10.1); PHOSPHORUS 4.3 mg/dL (2.5-4.9); POTASSIUM 4.3 mmol/L (3.5-5.1)
[2018-01-24 05:10] LABS: SERUM ASSESSMENT Clear
[2018-01-24 05:11] LABS: TROPONIN-I 0.84 ng/mL (<0.06)
[2018-01-24 07:33] VITALS: BP 173/79
[2018-01-24 16:05] VITALS: BP 132/70
[2018-01-24 19:17] VITALS: BP 143/71
[2018-01-24 23:10] LABS: GLYCOHEMOGLOBIN (HGB A1C) 12.4 % (4.8-5.6)
[2018-01-25] VITALS: BP 147/84
[2018-01-25 04:15] VITALS: BP 158/79
[2018-01-25 04:23] LABS: HEMATOCRIT 39.4 % (42.0-52.0); HEMOGLOBIN 13.4 gm/dL (14.0-18.0); MCH 27.1 pg (26.0-34.0); MCV 79.7 fL (80.0-100.0); RBC 4.95 mil/uL (4.50-6.00); RDW 15.3 % (10.5-14.5); WBC 10.1 thou/uL (4.0-11.0)
[2018-01-25 04:34] LABS: CALCIUM 8.3 mg/dL (8.5-10.1); CREATININE 1.1 mg/dL (0.7-1.3); POTASSIUM 3.8 mmol/L (3.5-5.1)
[2018-01-25 07:30] VITALS: BP 162/82
[2018-01-25] MEDS ORDERED: AMLODIPINE BESY10 MG PO (09:14)
[2018-01-25] MEDS ORDERED: EFFIENT10 MG PO (09:14)
[2018-01-25 10:17] VITALS: BP 162/82
== END 2018-01-25 11:10 | disposition home or self-care (01) | DRG 247 ==
LOC: ER 16:35 → 2N 17:30 → EROBS 17:30 → 2N 19:23
PROVIDERS: Hospitalist; Internal Medicine Cardiovascular Disease; Physician Assistant
DX: I21.4 Non-ST elevation (NSTEMI) myocardial infarction (principal); N17.9 Acute kidney failure, unspecified; E87.1 Hypo-osmolality and hyponatremia; I25.10 Atherosclerotic heart disease of native coronary artery without angina pectoris; E11.319 Type 2 diabetes mellitus with unspecified diabetic retinopathy without macular edema; J45.909 Unspecified asthma, uncomplicated; E11.65 Type 2 diabetes mellitus with hyperglycemia; E78.00 Pure hypercholesterolemia, unspecified; Z95.5 Presence of coronary angioplasty implant and graft; I25.2 Old myocardial infarction; Z91.19 Patient's noncompliance with other medical treatment and regimen; Z79.899 Other long term (current) drug therapy; Z83.3 Family history of diabetes mellitus; Z82.49 Family history of ischemic heart disease and other diseases of the circulatory system; Z84.1 Family history of disorders of kidney and ureter
CPT/HCPCS: 10194

== ENCOUNTER 2019-05-21 15:20 | Inpatient (IN) | payer OTHER ==
[~2019-05-21] VITALS: Ht 162.6 cm; Wt 88.9 kg
[~2019-05-21 15:20] MED LIST changes: +AMLODIPINE BESY10 MG PO; +CLOPIDOGREL75 MG PO; +JARDIANCE25 MG PO; +LOSARTAN POTAS100 MG PO
[2019-05-21 15:23] VITALS: BP 138/69
[2019-05-21] MEDS ORDERED: ASA81BEC PO (15:35)
[2019-05-21 16:04] LABS: HEMATOCRIT 46.3 % (42.0-52.0); HEMOGLOBIN 15.7 gm/dL (14.0-18.0); MCH 27.5 pg (26.0-34.0); MCHC 33.9 g/dL (28.0-37.0); MCV 81.2 fL (80.0-100.0); PLATELET COUNT 176 thou/uL (150-400)
[2019-05-21 16:11] LABS: CALCIUM 8.7 mg/dL (8.5-10.1); CREATININE 1.7 mg/dL (0.7-1.3); POTASSIUM 4.7 mmol/L (3.5-5.1)
[2019-05-21 16:19] LABS: TROPONIN-I 0.2 ng/mL (<0.06)
[2019-05-21 16:37] LABS: ABSOLUTE NEUTROPHILS 3.2 thou/uL (1.4-8.2)
[2019-05-21 16:38] LABS: ANISOCYTOSIS SLIGHT
[2019-05-21 17:06] VITALS: BP 147/76
[2019-05-21 17:47] VITALS: BP 148/71
[2019-05-21 17:50] LABS: CHOLESTEROL 226 mg/dL (<200); HDL CHOLESTEROL 37 mg/dL (>40); LDL CHOLESTEROL 150 mg/dL (<100); TC:HDL 6.1 Ratio (Not establshd); TRIGLYCERIDE 199 mg/dL (<150); VLDL 40 mg/dL (<40)
[2019-05-21 18:20] VITALS: BP 143/80
--- NOTE | 2019-05-21 19:10 | NUR ---
[age] YEAR OLD MALE WAS BROUGHT INTO THE ER PER FAMILY AT PT C/O SOA THAT STARTED ON SATURDAY. PT OR ALERT AND ORIENTED TIMES FOUR. VSS, 98%RA SR ON TELE, IVF INFUSING PER ORDER. PT DENEIS PAIN AT THIS TIME. PT AND SONS AT BEDSIDE DURING ADMITT. WILL CONTINUE TO MONITOR.
[2019-05-21 20:33] VITALS: BP 129/64
[2019-05-22 01:03] VITALS: BP 146/77
[2019-05-22 04:16] LABS: CALCIUM 8.4 mg/dL (8.5-10.1); CREATININE 1.8 mg/dL (0.7-1.3); MAGNESIUM 1.9 mg/dL (1.8-2.4); POTASSIUM 4.8 mmol/L (3.5-5.1); TROPONIN-I 0.15 ng/mL (<0.06)
[2019-05-22 04:28] LABS: BASOPHILS 0.3 % (0.0-2.0); HEMATOCRIT 44.8 % (42.0-52.0); HEMOGLOBIN 14.7 gm/dL (14.0-18.0); LYMPHOCYTES 12.7 % (24.0-44.0); MCH 26.9 pg (26.0-34.0); MCHC 32.8 g/dL (28.0-37.0); MCV 82.1 fL (80.0-100.0); PLATELET COUNT 172 thou/uL (150-400); RBC 5.46 mil/uL (4.50-6.00); RDW 14.8 % (10.5-14.5); WBC 3.6 thou/uL (4.0-11.0)
[2019-05-22 05:21] VITALS: BP 135/79
--- NOTE | 2019-05-22 06:18 | NUR ---
ASSUMED PT CARE AT 1900. VSS. PT A&0X4. PT FSBS WAS 494 AT DINNER TIME, WHEN RECHECHECKED, IT WAS GREATER THAN 500, SO 12U OF INSULIN WAS GIVEN GENERAL PURCHASING AGENT LYNNE WAS NOTIFIED SSI WAS INCREASED TO MODERATE DOSE AND AN ADDITIONAL 6U OF INSULIN WAS ORDERED WITH AN INSTRUCTION TO RECHECK FSBS IN 4 HOURS. BS WAS RECHECKED AND WAS 360; WAS THEN ORDERED TO TREAT PER MODERATE DOSE SSI. 20UNITS OF INSULIN WAS GIVEN AT THIS TIME AND WHEN FSBS WAS RECHECKED THIS AM, BS WAS 200. PT IS STABLE, ASSYMPTOMATIC, NO COMPLAINTS OF PAIN OR DISCOMFORT, WILL CONTINUE TO MONITOR.
[2019-05-22 08:26] VITALS: BP 171/92
--- NOTE | 2019-05-22 10:53 | NUR ---
Nutrition: Pt admitted with upper resp infection. Assessed for nsg risk 2 pts. On insulin. At home, on metformin and jardiance. H/o CAD, uncontrolled DM, HTN. CLD is ordered today. BG 321, alb 2.7, TG 199, chol 226. Pt may benefit from DM education. Mild to moderate risk at this time. Usual wt has been 210#, but admit wt is 183#. Unable to speak with pt to fully assess wt hx - RD to follow up Friday 05/25 for more detailed assessment.
[2019-05-22 11:02] VITALS: BP 110/61
--- NOTE | 2019-05-22 13:01 | EKG ---
[address] [place] [address] ELECTROCARDIOGRAM REPORT Name: PARISFERNANDO M Room #: 207-P ADM IN M.R.#: [id number] Admission: 05/21/19 Attend Phys: Kristopher Kessler MD Discharge: Date of : 60 Report #: [id number] THIS REPORT FOR: //name// [facility] [place] ED Test Date: 2019-05-21 Test Time: 15:27:09 Pat Name: FERNANDO TOLEDO Department: Room: 207 Gender: M Mobile Battery Technician: DOMINICK : 1960 Requested By: Nelia Davies Order Number: [id number] MD: Wyatt Meier Measurements Intervals [place] Rate: 84 P: 72 ND: 184 QRS: 38 QRSD: 112 T: 172 QT: 379 QTc: 449 Interpretive Statements Sinus rhythm Anteroseptal infarct, old T-wave abnormality, consider lateral ischemia Compared to ECG 09/10/2018 18:56:51 Septal Q waves are more prominent Electronically Signed On 05-22-2019 13:01:39 PAYROLL COORDINATOR by Wyatt Meier [email or web address] <ELECTRONICALLY SIGNED> By: Wyatt Meier MD, [facility] 05/22/19 1301 1527 1527 Wyatt Meier MD, [facility] /EPI
[2019-05-22 16:03] VITALS: BP 126/63
--- NOTE | 2019-05-22 18:52 | NUR ---
ASSUMED CARE 0700. ALERT X4, DEIES PAIN AND SOB. BS SUGARS MANAGED WITH MODERAL SCALE. PATIENT UP GRADED FROM CLD TO HEART HEALTHY. UP AB LITTLE. ACTIVITY OF TOLERATED.NSR ON TELE.
[2019-05-22 19:37] VITALS: BP 121/64
--- NOTE | 2019-05-23 04:25 | NUR ---
ASSUMED PT CARE AT 1900. PT A/OX4, VITAL SIGNS STABLE, ASSESSMNET CHARTED. NO COMPLAINTS OF PAIN. NO COMPLAINTS OF SOB. RESTED WELL THROUGH THE NIGHT. NO ACUTE CHANGES. WILL CONTINUE TO MONITOR.
[2019-05-23 04:49] VITALS: BP 141/71
[2019-05-23 07:20] VITALS: BP 140/65
[2019-05-23] MEDS ORDERED: DOXYCYCLINE HYC50 MG PO (09:13)
[2019-05-23 09:23] VITALS: BP 140/65
--- NOTE | 2019-05-23 10:07 | NUR ---
ASSUMMED PT CARE AT APPROXIMATELY 0700. PT A&O X4. ASSESSMENT CHARTED. FALL PRECAUTIONS IN PLACE. PT DENIES HAVING CHEST PAIN. PT STATES HE HAS SOB ON EXERSION. PT O2 SAT STABLE. PT DENIES HAVING ACUTE PAIN. PT DISCHARGING HOME WITH SELF CARE. IV DC. TELE DC. PT RECEIVED DISCHARGE EDUCATION. PT STATED UNDERSTANDING AND DENIED HAVING FURTHER QUESTIONS. PT AMBULATES STEADY/INDEPENDENT. VITAL SIGNS STABLE. BLOOD SUGARS STABLE. PT COMFORTABLE IN BED. PT DENIES HAVING FURTHER CONCERNS. PT WILL RECEIVE HOSPITAL TRANSPORT OFF UNIT. AWAITING PT'S SPOUSE TO ARRIVE TO DRIVE PT HOME.
== END 2019-05-23 11:02 | disposition home or self-care (01) | DRG 281 ==
LOC: ER 15:20 → EROBS 17:04 → 2N 17:58
PROVIDERS: Nurse Practitioner; Nurse Practitioner Family; ADMIT Hospitalist
DX: I21.4 Non-ST elevation (NSTEMI) myocardial infarction (principal); J45.901 Unspecified asthma with (acute) exacerbation; N17.9 Acute kidney failure, unspecified; E87.1 Hypo-osmolality and hyponatremia; E78.5 Hyperlipidemia, unspecified; M54.9 Dorsalgia, unspecified; R63.0 Anorexia; J06.9 Acute upper respiratory infection, unspecified; I25.10 Atherosclerotic heart disease of native coronary artery without angina pectoris; E11.22 Type 2 diabetes mellitus with diabetic chronic kidney disease; I12.9 Hypertensive chronic kidney disease with stage 1 through stage 4 chronic kidney disease, or unspecified chronic kidney disease; N18.9 Chronic kidney disease, unspecified; I25.2 Old myocardial infarction; Z79.4 Long term (current) use of insulin; Z79.82 Long term (current) use of aspirin; Z79.84 Long term (current) use of oral hypoglycemic drugs; Z79.899 Other long term (current) drug therapy; Z95.5 Presence of coronary angioplasty implant and graft; Z83.3 Family history of diabetes mellitus; Z82.49 Family history of ischemic heart disease and other diseases of the circulatory system
CPT/HCPCS: 10081

== ENCOUNTER 2019-07-26 21:56 | Inpatient (IN) | payer OTHER ==
[~2019-07-26] VITALS: Ht 152.4 cm; Wt 94.0 kg
[~2019-07-26 21:56] MED LIST changes: +ASA81BEC PO; +DOXYCYCLINE HYC50 MG PO
[2019-07-26 22:16] VITALS: BP 191/95
[2019-07-26 22:55] LABS: ABSOLUTE NEUTROPHILS 5.1 thou/uL (1.4-8.2); BASOPHILS 0.9 % (0.0-2.0); EOSINOPHILS 4.5 % (0.0-3.0); HEMATOCRIT 44.5 % (42.0-52.0); HEMOGLOBIN 14.7 gm/dL (14.0-18.0); LYMPHOCYTES 15.3 % (24.0-44.0); MCH 27.2 pg (26.0-34.0); MCV 82.5 fL (80.0-100.0); MONOCYTES 6.8 % (1.0-8.0); PLATELET COUNT 240 thou/uL (150-400); POLYS 72.5 % (36.0-66.0); RDW 14.5 % (10.5-14.5)
[2019-07-26 22:59] LABS: CALCIUM 8.7 mg/dL (8.5-10.1); CREATININE 1.4 mg/dL (0.7-1.3); POTASSIUM 4.9 mmol/L (3.5-5.1)
[2019-07-26 23:04] LABS: APTT 27.3 Seconds (24.5-32.8); PROTIME 9.6 Seconds (9.3-11.4)
[2019-07-26 23:09] LABS: ALBUMIN 3.2 g/dL (3.4-5.0); MAGNESIUM 1.9 mg/dL (1.8-2.4); TOTAL BILIRUBIN 0.3 mg/dL (<0.1-1.0); TROPONIN-I 0.11 ng/mL (<0.06)
[2019-07-27] VITALS (14 sets, daily range): BP systolic 142–188; BP diastolic 74–109
--- NOTE | 2019-07-27 03:21 | NUR ---
RECIEVED PT FROM ED , UPON ARRIVAL TO UNIT PT ALERT ORIENTED X4 DENIES CHEST PAIN , PT AMBULATED TO BATHROOM , GAIT STEADY. BLOOD GLUCOSE CHECK 292 , IV FLUIDS STARTED ORDERED.ASSESSMENT AND DATA BASE COMPLETED. AT BEDSIDE. DISCUSS PLAN OF CARE AND AGREEABLE. CATTLE KILLER SHOWS NSR. WILL CONITNUE TO MONITOR AND REPORT CHANGES.
[2019-07-27 09:29] LABS: CALCIUM 8.5 mg/dL (8.5-10.1); CREATININE 1.3 mg/dL (0.7-1.3); POTASSIUM 4.3 mmol/L (3.5-5.1)
--- NOTE | 2019-07-27 16:12 | 2DMMODE ---
[address] [address] 2 D/M-MODE ECHOCARDIOGRAM Name: FERNANDO TOLEDO Room #: 206-P ADM IN M.R.#: [id number] Admission: 07/27/19 Attend Phys: Kristen Rangel MD Discharge: Date of : 60 Report #: [id number] THIS REPORT FOR: cc: Indira Tejeda MD, Aimee B. MD Lundgren, Craig H. MD [facility] ~ THIS REPORT FOR: //name// APPROVED REPORT Study performed: 07/27/2019 15:23:31 EXAM: Comprehensive 2D, Doppler, and color-flow Echocardiogram Patient Location: Bedside Room #: 206 Status: routine BSA: 1.87 HR: 73 bpm BP: 156/97 mmHg Rhythm: NSR Other Information Study Quality: Technically DifficultTechnically Limited Technically limited study due to body habitus, inability to position patient. Indications Diabetes CAD Elevated Troponin Chest Pain Hypertension/HDD 2D Dimensions IVC: 12.00 mm Aortic Valve AoV Peak [place].: 0.99 m/s AO Peak Gr.: 3.92 mmHg LVOT Max P.88 mmHg LVOT Max V: 0.85 m/s Pulmonary Valve PV Peak [place].: 1.11 m/s PV Peak Gr.: 4.[address] [address] 2 D/M-MODE ECHOCARDIOGRAM Name: FERNANDO TOLEDO Room #: 206-P ADM IN M.R.#: [id number] Admission: 07/27/19 Attend Phys: Oumar Henriquez Discharge: Date of : 60 Report #: [id number] Left Ventricle The left ventricle is normal size. There is normal LV segmental wall motion. There is normal left ventricular wall thickness. The left ventricular systolic function is normal. The left ventricular ejection fraction is within the normal range. LVEF is 55%. This study is not technically sufficient to allow evaluation of the LV diastolic function. Right Ventricle The right ventricle is normal size. The right ventricular systolic function is normal. Atria The left atrium size is normal. The right atrium size is normal. Aortic Valve The aortic valve is normal in structure. No aortic regurgitation is present. There is no aortic valvular stenosis. Mitral Valve The mitral valve is normal in structure. There is no mitral valve regurgitation noted. No evidence of mitral valve stenosis. Tricuspid Valve The tricuspid valve is normal in structure. There is no tricuspid valve regurgitation noted. Pulmonic Valve The pulmonary valve is normal in structure. There is no pulmonic valvular regurgitation. Great Vessels The aortic root is normal in size. IVC is normal in size and collapses >50% with inspiration. Pericardium There is no pericardial effusion. <Conclusion> Technically difficult study The left ventricular systolic function is normal. There is normal LV segmental wall motion. LVEF is 55%. The aortic valve is normal in structure. No aortic regurgitation or stenosis [facility] [address] [place] [address] 2 D/M-MODE ECHOCARDIOGRAM Name: PARISFERNANDO Oumar Room #: 206-P ADM IN M.R.#: [id number] Admission: 07/27/19 Attend Phys: Oumar Henriquez Discharge: Date of : 60 Report #: [id number] The mitral valve is normal in structure. No mitral valve regurgitation Pulmonary artery pressure could not be reliably ascertained. There is no pericardial effusion. <ELECTRONICALLY SIGNED> By: Wyatt Meier MD, FACC 07/27/191610 10 10 Wyatt Meier MD, FACC /INF
[2019-07-27 16:33] LABS: URINE BILIRUBIN NEGATIVE (Negative); URINE BLOOD NEGATIVE (Negative); URINE CLARITY CLEAR; URINE COLOR YELLOW; URINE GLUCOSE-RANDOM* 3+ (Negative); URINE KETONES NEGATIVE (Negative); URINE LEUKOCYTES-REFLEX NEGATIVE (Negative); URINE NITRITE-REFLEX NEGATIVE (Negative); URINE PROTEIN (DIPSTICK) 2+ (Negative); URINE UROBILINOGEN 0.2 E.U./dl (0.2-1.0)
[2019-07-27 16:43] LABS: BACTERIA-REFLEX 1-9 Few /HPF (None Seen); CASTS None Seen /LPF (None Seen); CRYSTALS None Seen /LPF (None Seen); SQUAMOUS 0-3 Few /LPF (0-3); URINE RBC None Seen /HPF (0-2); URINE WBC-REFLEX None Seen /HPF (0-5)
--- NOTE | 2019-07-27 17:06 | CATHLAB ---
[facility] [place] [address] INVASIVE PROCEDURE REPORT Name: FERNANDO TOLEDO Room #: 206-P ADM IN M.R.#: [id number] Admission: 07/27/19 Attend Phys: Kristen Rangel MD Discharge: Date of : 60 Report #: [id number] THIS REPORT FOR: cc: Indira Tejeda MD, Aimee B. MD Lundgren, Craig H. MD [facility] ~ THIS REPORT FOR: //name// APPROVED REPORT Study performed: 07/27/2019 11:52:22 Patient Details Patient Status: In-Patient Room #: The patient is a 58 year-old male Event Personnel Wyatt Meier Fisheries Diver, Reva Oliva RN RN, Rubén Castrejon RTLyly ScrubBooker David Monitor Procedures Performed Left Heart Cath w/or w/o Coronaries [id number] [facility] Indication Chest pain Procedure Narrative The patient was brought urgently to the Cardiac Catheterization Laboratory and was prepped and draped in a sterile manner. The Right Groin^ was infiltrated with 1% Lidocaine subcutaneous anesthesia. A PINNACLE 6FR Sheath #[id number] sheath was inserted into the RFA^. Coronary angiography was performed using coronary diagnostic catheters. The right coronary system was accessed and visualized with a JR4 catheter. The left coronary system was accessed and visualized with a JL4 catheter. The left ventricle was accessed and visualized with a PIGTAIL catheter. Left ventricular/Aortic Valve gradient assessed via catheter pullback. Left ventriculogram was performed in 30 degree projection. Closure device was deployed with a 6 Fr MYNX. There was no hematoma. Intraoperative Conscious Sedation Sedation start time: . Case end Time: 06.17 [facility] [address] [place] [address] INVASIVE PROCEDURE REPORT Name: FERNANDO TOLEDO Room #: 206-P [facility] IN [facility]#: [id number] Admission: 07/27/19 Attend Phys: Oumar Henriquez Discharge: Date of : 60 Report #: [id number] Fluoro Time: 2.27 minutes Dose: DAP 4486.00 cGycm2 594 mGy Contrast Type and Amount: Visipaque 130 ml Coronary Angiography The patient's coronary anatomy is right dominant. Diagnostic Cath Left Main Left main was not especially large with a tubular 30-40% stenosis LAD Multiple layered stents (x 4) were present in the proximal LAD. Very severe 99% proximal LAD stenosis within a previously placed stent Diagonal 1 70% proximal first diagonal branch stenosis Circumflex 65-70% ostial circumflex stenosis Right Coronary Dominant right coronary with 55-65% proximal stenosis. Significant pressure dampening on engagement of RCA Ramus 60-70% proximal ramus branch stenosis Left Ventriculography The left ventricle is normal in size with normal contractility. The left ventricular ejection fraction is estimated to be 50-55%. Left ventricular wall motion abnormalities are not present. There is no mitral insufficiency. Hemodynamics The aortic pressure is 157/86 mmHg with a mean of 115 mmHg. The left ventricular pressure is 163/25 mmHg with a mean of mmHg. The left ventricular end diastolic pressure is 23 mmHg. There was no gradient across the aortic valve upon pullback. Conclusion 1. Normal global and regional left ventricular systolic function. 2. Tubular 30-40% left main stenosis 3. Critical proximal LAD stenosis. This was present within previously placed stents. At least four previously layered stents were present in the proximal LAD 4. Significant circumflex, ramus branch, and proximal right coronary disease [facility] [address] [place] [address] INVASIVE PROCEDURE REPORT Name: FERNANDO TOLEDO Room #: 206-P [facility] IN ..#: [id number] Admission: 07/27/19 Attend Phys: Oumar Henriquez Discharge: Date of : 60 Report #: [id number] Recommendations CABG <ELECTRONICALLY SIGNED> By: Wyatt Meier MD, FACC 07/27/191704 04 04 Wyatt Meier MD, FACC /INF
--- NOTE | 2019-07-27 17:08 | NUR ---
ASSUMED CARE 0700, ALERT X4, DENIES PAIN, DENIES CHEST PAIN, CARDIAC CATH TODAY BY DR RAY TODAY WITH NO INTERVENTIONS, RIGHT GROIN SITE C/D/I PATIENT FOLLOWED POST CATH PROTOCOL. PLANS FOR A CABG ON SATURDAY BY DR CHERRY. SEE NURSING ORDERS FOR ADDITIONAL PRO-OP ORDERS. HEPARIN TO START 6 HOURS POST CARDIAC CATH. UP AB LITTLE IN ROOM. CALLS FOR ASSISTANCE.
[2019-07-28 00:09] LABS: GLYCOHEMOGLOBIN (HGB A1C) 12.3 % (4.8-5.6)
[2019-07-28 00:28] VITALS: BP 141/77
[2019-07-28 01:37] LABS: CALCIUM 8.5 mg/dL (8.5-10.1); CREATININE 1.6 mg/dL (0.7-1.3); POTASSIUM 4.4 mmol/L (3.5-5.1)
[2019-07-28 02:26] LABS: TROPONIN-I 1.95 ng/mL (<0.06)
[2019-07-28 05:03] VITALS: BP 140/80
--- NOTE | 2019-07-28 06:54 | NUR ---
PATIENTS CARES WERE ASSUMED AT SHIFT CHANGE. PATIENT WAS ASSESSED AND MEDS WERE PASSED. NITRO PASTE WAS PLACED ORDERED. HEPARIN IS A GTT AND 0700 CHECK IS BEING DONE NOW. WILL PLACE AN ORDER TO REDRAW AT 1300. AISHA FROM THE LAB CALLED WITH A TROP LEVEL 1.95, DOCTOR RODOLFO PLACED A ORDER IN NURSE NOTES TO NOT CALL HIM ON ELEVATION OF TROP. HOURLY ROUNS WERE DONE . TELE SR WITH A HEART RATE 74 TO 77. PATIENT DENIES ANY PAIN
[2019-07-28 07:45] VITALS: BP 156/82
--- NOTE | 2019-07-28 09:57 | HC ---
[place] [address] CONSULTATION Name: FERNANDO TOLEDO Room #: 206-P ADM IN M.R.#: [id number] Admission: 07/27/19 Attend Phys: Kristen Rangel MD Discharge: Date of : 60 Report #: [id number] THIS REPORT FOR: cc: Indira Tejeda MD,Edgar Rosales MD, MD ~ THIS REPORT FOR: //name// CC: Indiar Rangel DATE OF SERVICE: 07/27/2019 ENDOCRINE CONSULTATION CONSULTING PHYSICIAN: Dr. Kristen Rangel. REASON FOR CONSULTATION: Uncontrolled type 2 diabetes mellitus. HISTORY OF PRESENT ILLNESS: This is a 58-year-old male patient whose medical background is significant for multiple medical issues including type 2 diabetes mellitus, coronary artery disease, hypertension and hyperlipidemia. The patient presented late last night with complaints of left-sided chest pain, which upon initial evaluation was deemed consistent with a possible acute coronary event and the patient was admitted for further care and monitoring. The patient notes an extensive history of coronary artery disease with prior occurrences of myocardial infarction and status post the placement of 4 stents in his coronary arteries about 2 years ago. The patient has been a type 2 diabetic for more than 10 years and has most recently been maintained on a regimen of Levemir insulin 38 units twice a day in addition to Humulin R insulin 10 units before breakfast and 6 units before dinner in addition to Jardiance 25 mg daily. While he has been on metformin in the past, he has not been using it recently as it has been discontinued. The patient describes fasting blood glucose values that run well above 200 mg/dL and postprandial values that are typically in the high 200 to low 300 mg/dL range. He denies issues with hypoglycemia. The patient's background is significant for bilateral diabetic retinopathy, status post laser surgery, but he is not aware of difficulties pertaining to diabetic neuropathy or nephropathy. The patient notes a history of hyperlipidemia, but he is not on active statin therapy at the time. He is hypertensive and is treated with losartan 100 mg daily[address] [address] CONSULTATION Name: FERNANDO TOLEDO Room #: 206-P [facility] IN M.R.#: [id number] Admission: 07/27/19 Attend Phys: Kristen Rangel MD Discharge: Date of : 60 Report #: [id number] REVIEW OF SYSTEMS: CONSTITUTIONAL: Occasional issues with fatigue, tiredness, but not fever, chills or body weight changes. HEENT: Negative for sinus pain, congestion, or ear drainage. PULMONARY: Occasional shortness of breath and cough, but not hemoptysis. The patient has baseline asthma that is controlled. CARDIAC: Left-sided chest pain as noted above, but no syncope or presyncope. GASTROINTESTINAL: Abdominal discomfort, nausea, but no vomiting or major changes in bowel movement frequency. NEUROLOGY: Negative for loss of consciousness, seizure activity, frequent severe headaches. PSYCHIATRIC: Negative for delusions, hallucinations. SKIN: Negative for ulceration, rash or other major abnormalities. Otherwise, his review of system is noncontributory other than what is mentioned in HPI. PAST MEDICAL HISTORY: Type 2 diabetes mellitus, hypertension, hyperlipidemia, coronary artery disease, status post 4 stent placements 2 years ago, asthma. OUTPATIENT MEDICATIONS: Include Levemir insulin 38 units b.i.d., Humulin R insulin 10 units before breakfast, 6 units before lunch and dinner and Jardiance 25 mg daily, losartan 100 mg daily, albuterol q. 4 hours p.r.n., isosorbide mononitrate 30 mg daily, aspirin 81 mg daily. ALLERGIES: No known drug allergies. FAMILY HISTORY: Noncontributory. SOCIAL HISTORY: The patient is . He has 3 children. He works at the [employer]. Denies the use of tobacco, alcohol or illicit drugs. PHYSICAL EXAMINATION: GENERAL: Pleasant male patient who is not in apparent pain or distress. VITAL SIGNS: Blood pressure is 170/98 mmHg, heart rate is 74 beats per minute, respiration 18 per minute, temperature is 37 Celsius. CONSTITUTIONAL: The patient appears comfortable, not in apparent distress. HEENT: Anicteric sclerae. Intact extraocular motions. NECK: Supple, without JVD, carotid bruits or lymphadenopathy. I did not appreciate thyromegaly. CHEST: Noted for moderate air entry bilaterally with scattered rales and rhonchi, but not crackles or wheezes. HEART: Regular rate and rhythm without murmurs or gallops. ABDOMEN: Distended, but soft, lax. No guarding. Active bowel sounds. EXTREMITIES: Lower extremity exam, trace ankle edema. Faint pedal pulses. No skin breaks or ulcerations. [address] [place] [address] CONSULTATION Name: FERNANDO TOLEDO Room #: 206-P [facility] IN M.R.#: [id number] Admission: 07/27/19 Attend Phys: Kristen Rangel MD Discharge: Date of : 60 Report #: [id number] NEUROLOGIC: Awake, alert and oriented to time, place and person. The remainder of his examination is nonfocal. PSYCHIATRIC: Pleasant, interactive, appropriate. Normal mood and affect. LABORATORY DATA: Blood glucose on arrival was 292. Today, it was 203, after breakfast 190 mg/dL. Otherwise, sodium 138, potassium 4.3, chloride 103, CO2 of 25, anion gap 10, BUN 24, creatinine 1.3, lipase 136, total bilirubin 0.3, phosphorus 4.3, magnesium 1.9, alkaline phosphatase 119, ALT 27, total bilirubin 7.0, albumin 3.2. EGFR 57. Troponin 1.3, total CPK 1.2. April 2019, total cholesterol 226, triglycerides 199, HDL 37, LDL 150. White blood count 7.0, hemoglobin 14.7, hematocrit 44.5, platelets 240. TSH, this is old in August 2018, 3.24. Hemoglobin A1c in August 2018 was 12.8%. ASSESSMENT AND PLAN: 1. Type 2 diabetes mellitus. This is uncontrolled as per the patient's reported blood glucose values as well as his previously measured hemoglobin A1c values. The patient was counseled extensively about the necessity of achieving and maintaining adequate glycemic control so as to avoid microvascular and macrovascular complications of diabetes mellitus. It appears that the patient is being planned for coronary artery bypass grafting surgery within days and I stressed the importance of adequate glycemic control perioperatively to lower the odds of complications which he understands well. The patient's current insulin regimen is noted for an aggressive basal insulin coverage with minimal prandial coverage, which I believe is primarily responsible for the discrepancy in his blood glucose levels. That said, I will move towards a more effective prandial coverage both by changing from Humulin R to Humalog insulin and also by raising the dosage to 18 units t.i.d. a.c. As I do so and as I expect more efficiency with this approach, I will preemptively lower his long-acting coverage to Lantus insulin 25 units b.i.d. As we do so, I will maintain the patient on Humalog supplemental scale coverage with low intensity and we will be monitoring the patient's blood glucose values a.c. and at bedtime. During this hospitalization, the mainstay of glycemic management would be that of insulin; however, as the patient returns to the outpatient setting, we could certainly resume Jardiance, consider a GLP-1 analog for his cardiovascular disease protective effects, and potentially utilize low dose metformin therapy. Again, all these considerations are more appropriate in the outpatient setting. Also, I will obtain a hemoglobin A1c to better assess the patient's overall level of control. 2. Hyperlipidemia. [address] [address] CONSULTATION Name: FERNANDO TOLEDO Room #: 206-P [facility] IN .R.#: [id number] Admission: 07/27/19 Attend Phys: Kristen Rangel MD Discharge: Date of : 60 Report #: [id number] The patient's level of lipid control is inadequate as of a few months ago. I fully agree with high intensity statin therapy in the form of atorvastatin 80 mg that was started here. The patient is to continue the same. 3. Hypertension. The patient is currently on metoprolol 50 mg b.i.d. as well as olmesartan 40 mg daily. The patient's blood pressure has been hard to control so far. I will defer therapeutic changes in this regard to the Cardiology and Hospital Medicine teams. 4. Coronary artery disease. As noted above, the patient has an extensive history of coronary artery disease and is status post myocardial infarction and stent placements in the past. The patient expects to undergo a CABG within a few days. I stressed the importance of adequate control of cardiovascular disease risk factors such as diabetes mellitus, hypertension, hyperlipidemia to prevent similar occurrences in the future, which the patient understands well. I have reviewed the patient's clinical care notes, laboratory data, both electronic and paper as well as reviewed the patient's medicinal records and blood glucose data bedside for more than 35 minutes. I certainly appreciate this consultation by Dr. Rangel. <ELECTRONICALLY SIGNED> By: Edgar Glover MD 07/28/19 0957 [id number] Edgar Glover MD /nt
[2019-07-28 11:35] VITALS: BP 142/69
--- NOTE | 2019-07-28 16:54 | NUR ---
ASSUMED CARE AT SHIFT CHANGE, ALERT AND ORIENTED X4. S/B DR CHERRY, CABG SCHEDULED FOR SATURDAY, AND PATIENT AND FAMILY INFORMED. REMAINS ON HEPARIN GTT. AND WILL CONTINUE WITH POC.
[2019-07-28 17:00] VITALS: BP 146/67
[2019-07-28 20:18] VITALS: BP 168/82
[2019-07-29 01:19] VITALS: BP 149/84
[2019-07-29 04:49] VITALS: BP 149/84
[2019-07-29 07:55] VITALS: BP 162/84
[2019-07-29 12:03] VITALS: BP 149/100
[2019-07-29 16:57] VITALS: BP 164/89
--- NOTE | 2019-07-29 17:12 | NUR ---
Met with patient, chart reviewed. Patient with scheduled CABG Saturday. 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 he has adequate time off work for recovery. Patient lives in independent home with and son. They are able to assist at dc. 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
--- NOTE | 2019-07-29 19:45 | NUR ---
ASSUMED CARE AT SHIFT, ALERT AND ORIENTED X4. DENIES ANY CP OR DISCOMFORT. AFEBRILE, AND SR ON THE MONITOR. REMAINS ON HEPARIN GTT, AND NO CHANGE MADE TO RATE. AND WILL CONTINUE WITH POC.
[2019-07-29 20:15] VITALS: BP 159/91
[2019-07-30 04:45] VITALS: BP 141/76
--- NOTE | 2019-07-30 07:29 | NUR ---
pt resting quietly in room through the noc, no c/o pain, heparin gtt and fluids con't to infuse,up adlib in room, will con't to monitor per ppoc
[2019-07-30 08:00] VITALS: BP 160/98; BP 172/72
[2019-07-30 08:11] LABS: CREATININE 1.2 mg/dL (0.7-1.3); POTASSIUM 4.2 mmol/L (3.5-5.1)
[2019-07-30 11:30] VITALS: BP 139/70; BP 155/83
[2019-07-30 16:00] VITALS: BP 144/73
[2019-07-30 16:05] VITALS: BP 150/79
--- NOTE | 2019-07-30 16:34 | NUR ---
ASSESSMENT DOCUMENTED, ALERT AND ORIENTED. ANXIOUS ABOUT CABG TOMORROW, AND ALL CONCERNS AND QUESTIONS ADDRESSED. APTT THERAPUTIC AND NO CHANGE MADE TO HEPARIN GTT, HEPARIN TO BE STOPPED AT 0630 AM. AND WILL CONTINUE WITH POC.
[2019-07-30 19:47] VITALS: BP 168/64
[2019-07-31] VITALS (23 sets, daily range): BP systolic 104–193; BP diastolic 53–88
--- NOTE | 2019-07-31 03:45 | NUR ---
ASSESSMENT DOCUMENTED.PT BEEN RESTING IN NO ACUTE DISTRESS.A/OX4.VSS.REMAINS ON HEPARIN DRIP PER PROTOCOL.PT GOING FOR CABG THIS AM.PRE-OPE CHECKLIST INTIATED.SR ON MONITOR.PT DENIES PAIN OR ANY DISTRESS AT THIS TIME.FAMILY AT BEDSIDE.WILL CONT TO MONITOR PER POC.
[2019-07-31 13:13] LABS: HEMATOCRIT 28.1 % (42.0-52.0); MCH 27.4 pg (26.0-34.0); MCHC 33.1 g/dL (28.0-37.0); MCV 82.9 fL (80.0-100.0); RBC 3.39 mil/uL (4.50-6.00); RDW 14.6 % (10.5-14.5); WBC 4.3 thou/uL (4.0-11.0)
[2019-07-31 13:16] LABS: HEMOGLOBIN 9.3 gm/dL (14.0-18.0)
[2019-07-31 13:41] LABS: FIBRINOGEN 293.1 mg/dL (210-360); INR 1.5; PROTIME 15.1 Seconds (9.3-11.4)
[2019-07-31 13:47] LABS: APTT 28.7 Seconds (24.5-32.8)
[2019-07-31 13:56] LABS: POC BE -1 mmol/L (-2.0 to +3.0); POC CA IONIZED 4.8 mg/dL (4.5-5.3); POC GLUCOSE 120 mg/dL (70-99); POC HCO3 23.7 mmol/L (22.0-26.0); POC HEMOGLOBIN 7.8 g/dL (14.0-18.0); POC POTASSIUM 4.7 mmol/L (3.5-5.1); POC SODIUM 138 mmol/L (136-145); POC pCO2 38.7 mmHg (35.0-45.0); POC pH 7.396 (7.360-7.450)
[2019-07-31 13:56] LABS: POC BE -3 mmol/L (-2.0 to +3.0); POC CA IONIZED 4.3 mg/dL (4.5-5.3); POC GLUCOSE 76 mg/dL (70-99); POC HCO3 22.1 mmol/L (22.0-26.0); POC HEMOGLOBIN 8.8 g/dL (14.0-18.0); POC POTASSIUM 4.5 mmol/L (3.5-5.1); POC SODIUM 138 mmol/L (136-145); POC pCO2 38.8 mmHg (35.0-45.0); POC pH 7.365 (7.360-7.450)
[2019-07-31 13:56] LABS: POC BE -5 mmol/L (-2.0 to +3.0); POC CA IONIZED 4.7 mg/dL (4.5-5.3); POC GLUCOSE 82 mg/dL (70-99); POC HEMOGLOBIN 10.9 g/dL (14.0-18.0); POC POTASSIUM 4.4 mmol/L (3.5-5.1); POC SODIUM 138 mmol/L (136-145); POC pCO2 42.2 mmHg (35.0-45.0); POC pH 7.305 (7.360-7.450)
[2019-07-31 13:56] LABS: POC BE 0 mmol/L (-2.0 to +3.0); POC CA IONIZED 4.3 mg/dL (4.5-5.3); POC GLUCOSE 79 mg/dL (70-99); POC HCO3 24.2 mmol/L (22.0-26.0); POC HEMOGLOBIN 8.5 g/dL (14.0-18.0); POC POTASSIUM 4.5 mmol/L (3.5-5.1); POC SODIUM 139 mmol/L (136-145); POC pCO2 37.6 mmHg (35.0-45.0); POC pH 7.417 (7.360-7.450)
[2019-07-31 13:56] LABS: POC BE -4 mmol/L (-2.0 to +3.0); POC CA IONIZED 4.8 mg/dL (4.5-5.3); POC GLUCOSE 114 mg/dL (70-99); POC HCO3 21.5 mmol/L (22.0-26.0); POC HEMOGLOBIN 8.8 g/dL (14.0-18.0); POC POTASSIUM 4.5 mmol/L (3.5-5.1); POC SODIUM 139 mmol/L (136-145); POC pCO2 39.7 mmHg (35.0-45.0); POC pH 7.342 (7.360-7.450)
[2019-07-31 13:56] LABS: POC BE -4 mmol/L (-2.0 to +3.0); POC CA IONIZED 4.8 mg/dL (4.5-5.3); POC GLUCOSE 86 mg/dL (70-99); POC HCO3 20.8 mmol/L (22.0-26.0); POC HEMOGLOBIN 11.9 g/dL (14.0-18.0); POC POTASSIUM 4.5 mmol/L (3.5-5.1); POC SODIUM 138 mmol/L (136-145); POC pCO2 33.3 mmHg (35.0-45.0); POC pH 7.404 (7.360-7.450)
[2019-07-31 13:57] LABS: POC BE 0 mmol/L (-2.0 to +3.0); POC CA IONIZED 4.3 mg/dL (4.5-5.3); POC GLUCOSE 98 mg/dL (70-99); POC HCO3 24.6 mmol/L (22.0-26.0); POC HEMOGLOBIN 7.5 g/dL (14.0-18.0); POC POTASSIUM 4.8 mmol/L (3.5-5.1); POC SODIUM 138 mmol/L (136-145); POC pCO2 40.3 mmHg (35.0-45.0); POC pH 7.394 (7.360-7.450)
[2019-07-31 13:57] LABS: POC BE -6 mmol/L (-2.0 to +3.0); POC CA IONIZED 4.6 mg/dL (4.5-5.3); POC GLUCOSE 114 mg/dL (70-99); POC HCO3 21.2 mmol/L (22.0-26.0); POC HEMOGLOBIN 10.2 g/dL (14.0-18.0); POC POTASSIUM 4.5 mmol/L (3.5-5.1); POC SODIUM 140 mmol/L (136-145); POC pCO2 45.1 mmHg (35.0-45.0)
[2019-07-31 13:57] LABS: POC BE 0 mmol/L (-2.0 to +3.0); POC CA IONIZED 4.4 mg/dL (4.5-5.3); POC GLUCOSE 88 mg/dL (70-99); POC HCO3 24.6 mmol/L (22.0-26.0); POC HEMOGLOBIN 8.5 g/dL (14.0-18.0); POC POTASSIUM 4.8 mmol/L (3.5-5.1); POC SODIUM 140 mmol/L (136-145); POC pH 7.409 (7.360-7.450)
[2019-07-31 14:46] LABS: HEMATOCRIT 35.4 % (42.0-52.0); MCH 27.1 pg (26.0-34.0); MCHC 32.7 g/dL (28.0-37.0); MCV 82.8 fL (80.0-100.0); RBC 4.28 mil/uL (4.50-6.00); RDW 14.7 % (10.5-14.5); WBC 6.7 thou/uL (4.0-11.0)
[2019-07-31 14:48] LABS: HEMOGLOBIN 11.6 gm/dL (14.0-18.0)
[2019-07-31 14:53] LABS: CALCIUM 7.5 mg/dL (8.5-10.1); CREATININE 1.6 mg/dL (0.7-1.3); MAGNESIUM 1.9 mg/dL (1.8-2.4); POTASSIUM 4.6 mmol/L (3.5-5.1)
[2019-07-31 14:57] LABS: APTT 29.1 Seconds (24.5-32.8); INR 1.2
[2019-07-31 15:06] LABS: BE(vivo) -8.7 mmol/L (-2 to +3); HCO3 18.2 mmol/L (22.0-26.0); PCO2 42.8 mmHg (35.0-45.0); PO2 66.4 mmHg (80.0-100.0); sO2 89.9 % (92.0-98.0)
[2019-07-31 15:07] LABS: pH 7.246 (7.360-7.450)
--- NOTE | 2019-07-31 15:14 | NUR ---
PT ARRIVED FROM OR WITH NURSING STAFF, ANETHESTESIA AND SURGEON. PLACED ON MONITOR. TITRATE CARDENE AND PROPOFOL TO CONTROL BP. VENT CHANGES MADE. LABS SENT, BG DRAWN. RUDY RILEY ON.
[2019-07-31 17:58] LABS: BE(vivo) -8.8 mmol/L (-2 to +3); HCO3 15.8 mmol/L (22.0-26.0); PCO2 29.8 mmHg (35.0-45.0); PO2 65.6 mmHg (80.0-100.0); pH 7.343 (7.360-7.450); sO2 92.2 % (92.0-98.0)
[2019-07-31 18:43] LABS: CALCIUM 7.4 mg/dL (8.5-10.1); CREATININE 1.8 mg/dL (0.7-1.3); MAGNESIUM 1.9 mg/dL (1.8-2.4); POTASSIUM 4.6 mmol/L (3.5-5.1)
[2019-07-31 23:24] LABS: BE(vivo) -9.7 mmol/L (-2 to +3); HCO3 14.6 mmol/L (22.0-26.0); PCO2 27.2 mmHg (35.0-45.0); PO2 66.7 mmHg (80.0-100.0); pH 7.347 (7.360-7.450); sO2 92.7 % (92.0-98.0)
--- NOTE | 2019-07-31 23:55 | NUR ---
ASSUMED CARE OF PT AT 1900. POST OP CABG. PT INITIALLY ON VENT, AND DROWSY. FIO2 TITRATED DOWN. CPAP TRIAL DONE AROUND 2300. ABGs OBTAINED AND CALLED TO DR. CHERRY AT 2330. PT EXTUBATED AT 2336 BY RT. PT NOW ON FACE SHIELD AND TOLERATING WELL. WILL CONTINUE TO MONITOR.
[2019-08-01] VITALS (14 sets, daily range): BP systolic 87–151; BP diastolic 52–82
[2019-08-01 06:20] LABS: HEMATOCRIT 32.6 % (42.0-52.0); HEMOGLOBIN 10.6 gm/dL (14.0-18.0); MCH 27.2 pg (26.0-34.0); MCHC 32.6 g/dL (28.0-37.0); MCV 83.3 fL (80.0-100.0); RBC 3.92 mil/uL (4.50-6.00); RDW 15.5 % (10.5-14.5); WBC 12.7 thou/uL (4.0-11.0)
[2019-08-01 06:31] LABS: CALCIUM 7.7 mg/dL (8.5-10.1); CREATININE 2.3 mg/dL (0.7-1.3)
[2019-08-01 06:57] LABS: INR 1.2
--- NOTE | 2019-08-01 07:25 | NUR ---
SINCE EXTUBATION, PT HAS BEEN ON O2 PER FACE SHIELD. PT TRIED ON HIGH FLOW NC AFTER VOMITING AROUND 0430 THIS MORNING, BUT O2 QUICKLY DROPPED. PT C/O PAIN OFTEN; PAIN MEDICATION GIVEN WHEN ABLE AND PT EDUCATED ON CHEST PAIN POST CABG. PT RESTARTED ON CARDENE GTT OVERNIGHT. PT STARTED ON INSULIN GTT. BLOOD GLUCOSE STARTING TO LOWER THIS MORNING, AFTER BEING IN THE 200s THE MAJORITY OF THE NIGHT, DESPITE TITRATING INSULIN GTT UP. UNABLE TO GET UP TO CHAIR THIS MORNING TO HIGH O2 DEMAND, PAIN, AND NAUSEA. WILL CONTINUE TO MONITOR.
[2019-08-01 09:37] LABS: URINE CREATININE-RANDOM* 149.1 mg/dL
--- NOTE | 2019-08-01 10:00 | NUR ---
CARDENE WEANED OFF AND DOBUTAMINE WEANED O.5MCG/KG/HOUR WITH CI AND SVR WITHIN PARAMATERS. PATIENT NOTED TO BE IMPULSIVE AT TIMES AND PICKING AT CENTRAL LINE DRESSING AND SERA BOARD, PICKED OFF CENTRAL LINE DRESSING AND REDRESSED. REDIRECTED FREQUENTLY. TOLERATING DIET AND PO PAIN MEDS STARTED.
[2019-08-01 14:17] LABS: ALBUMIN 2.5 g/dL (3.4-5.0); CALCIUM 6.6 mg/dL (8.5-10.1); PHOSPHORUS 4.1 mg/dL (2.5-4.9); POTASSIUM 4.2 mmol/L (3.5-5.1)
--- NOTE | 2019-08-01 14:30 | NUR ---
PATIENT ASSISTED UP TO CHAIR, PATIENT PICKING AND PULLING AT STABLIZATION BOARD FOR SERA, REDIRECTED AND REPEATLY INFORMED THAT IT NEED TO STAY IN. PATIENT PULLED IT OUT, PRESSURE HELD. SWAN PULLED EARLIER UNDER DIRECTION OF THE CHARGE NURSE. PATIENT PICKING AT CENTRAL LINE DRESSING AND REDRESSED SWAN INSERTION PORT.
--- NOTE | 2019-08-01 18:00 | NUR ---
PATIENT O2 WEANED TO 6L/HFNC WITH STRONG N/P COUGH. ENCOURAGED TO USE HEART PILLOW. CENTRAL LINE DRESSING REDRESSED PATIENT CONTINUALLY PICKING AT LINE, REDIRECTED FREQUENTLY. DR MARTINEZ AND DR CHERRY AWARE OF PATIENT'S IMPULIVE AND CONFUSED STATE. ALSO AWARE OF BMP RESULTS. URINE OUTPUT IMPROVING. TAKING PO FLUIDS WITHOUT NAUSEA OR EMESIS.
[2019-08-02] VITALS (25 sets, daily range): BP systolic 107–153; BP diastolic 38–79
[2019-08-02 05:23] LABS: BE(vivo) -6.2 mmol/L (-2 to +3); HCO3 18.1 mmol/L (22.0-26.0); PCO2 31.8 mmHg (35.0-45.0); PO2 79.8 mmHg (80.0-100.0); pH 7.373 (7.360-7.450); sO2 95.7 % (92.0-98.0)
[2019-08-02 05:34] LABS: HEMATOCRIT 32.5 % (42.0-52.0); HEMOGLOBIN 10.5 gm/dL (14.0-18.0); MCHC 32.1 g/dL (28.0-37.0); MCV 84.1 fL (80.0-100.0); RBC 3.87 mil/uL (4.50-6.00); RDW 15.5 % (10.5-14.5); WBC 14.2 thou/uL (4.0-11.0)
[2019-08-02 06:06] LABS: CALCIUM 7.3 mg/dL (8.5-10.1); CREATININE 1.8 mg/dL (0.7-1.3); POTASSIUM 4.5 mmol/L (3.5-5.1)
--- NOTE | 2019-08-02 06:28 | NUR ---
PATIENT ON 9L NS. RESETED THROUGHOUT THE NIGHT. CONFUSED IN THE BEGINNING OF THE NIGHT HOWEVER MIDNIGHT THROUGH MORNING RESETED AND WAS COOPERATIVE AND REDIRECTABLE. RESTRAINT NO LONGER NEEDED. SR TO ST INTERMITTEN COUGHING. ENCOURAGE TO GUARD WITH PILLOW AND USE INCENTIVE SPIROMETER. CHEST TUBE DRESSINGS INTACT AND DRAINING. LEFT PATIENT RESTING NO COMPLAINTS OF DISCOMFORT OR PAIN
--- NOTE | 2019-08-02 14:30 | NUR ---
PATIENT ASSISTED BACK TO BED. C/O DYSPNEA WITH ACTIVITY. FIO2 UP TO 12L/HFNC. ENCOURATED TO TAKE SLOW DEEP BREATHES, IS ENCOURAGED, ONLY PULLING UP TO 500. OCC PRODUCTIVE COUGH. DR MARTINEZ IN AND ENCOURAGING PATIENT TO INCREASE USE OF IS.
--- NOTE | 2019-08-02 16:46 | O ---
[facility] [place] [address] OPERATIVE REPORT Name: FERNANDO TOLEDO Room #: 247-P ADM IN M.R.#: [id number] Admission: 07/27/19 Attend Phys: Robinson Nuñez MD Discharge: Date of : 60 Report #: [id number] THIS REPORT FOR: cc: Indira Tejeda MD,Indira Garcia,Jorje Hoyos MD ~ CC: Indira Nuñez DATE OF SERVICE: 07/31/2019 PREOPERATIVE DIAGNOSIS: Coronary artery disease. POSTOPERATIVE DIAGNOSIS: Coronary artery disease. OPERATION: Coronary artery bypass x 5 including left internal mammary artery to left anterior descending artery, saphenous vein to diagonal, ramus intermedius, and distal marginal and saphenous vein to posterior descending artery. Endoscopic harvest, left greater saphenous vein. SURGEON: Jorje Garcia M.D. INDUSTRIAL WELDER: TONEY Porras SA-C. ANESTHESIA: General. INDICATIONS: The patient is a 58-year-old with severe LAD stenosis. There is a multiply stented LAD that has restenosed in the same spot. In addition, there is involvement of the diagonal at this level and also abnormality in the large ramus intermedius and circumflex system. The right coronary appears normal, but the temperer stated that the pressure dampened significantly whenever the ostium was entered. Left ventricular function is mildly reduced. FINDINGS AND TECHNIQUE: After general anesthesia was established, saphenous vein was harvested using an endoscopic approach and prepared for use as a conduit. Exposure was obtained through median sternotomy. Left internal mammary artery was harvested from chest wall. Pericardial well was made. Cannulation sutures were placed. Heparin was given. Aorta was cannulated. Right atrium was cannulated. Cardioplegia needle was positioned in the aortic root. Retrograde cardioplegic catheter was placed in coronary sinus. Cardiopulmonary bypass was established. The aorta was cross clamped antegrade, then retrograde cardioplegia were given. Ice was poured in the pericardial well. The heart was stopped. [facility] [address] [place] [address] OPERATIVE REPORT Name: FERNANDO TOLEDO Room #: 247-P [facility] IN ..#: [id number] Admission: 07/27/19 Attend Phys: Robinson Nuñez MD Discharge: Date of : 60 Report #: [id number] During electromechanical arrest, the distal anastomoses were performed and end-to-side anastomosis was made between vein and the posterior descending artery. Cold cardioplegia was given. A separate segment of vein was sewn in end-to-side fashion to the distal marginal artery. Cold cardioplegia was given. Same segment of vein was sewn in auec-cc-eiqy fashion to the large ramus intermedius. Cold cardioplegia was given. The same segment of vein was sewn in vnht-hq-xprd fashion to the diagonal artery. Cold cardioplegia was given. Left internal mammary artery was sewn in end-to-side fashion to the left anterior descending artery. This anastomosis was checked with the temperature technique and the Doppler. Cold cardioplegia was given. Two proximal anastomoses were performed and these were complete, warm retrograde cardioplegia was given followed by warm continuous blood to the coronary sinus. When this infusion was complete, the crossclamp was removed, de-airing maneuvers were performed. The anastomoses were inspected and found to be satisfactory. As the patient warmed, nice cardiac activity resumed, chest tubes and pacing wires were placed, a marker was placed around the proximal anastomoses. When the patient was warm, he was weaned from cardiopulmonary bypass. Venous cannula was removed. Protamine was given, the aortic cannula was removed. Flows were measured in the bypass grafts. When hemostasis was satisfactory, chest was irrigated with antibiotic solution and closed in the usual fashion. The patient was taken to the Intensive Care Unit in satisfactory condition having tolerated the procedure well. The patient was on dobutamine for inotropic effect and afterload reduction. All counts reported as correct. <ELECTRONICALLY SIGNED> By: Jorje Garcia MD 08/02/19 1646 05 15 Jorje Garcia MD /nt
--- NOTE | 2019-08-02 16:46 | HC ---
[facility] [place] [address] CONSULTATION Name: FERNANDO TOLEDO Room #: 247-P [facility] IN M.R.#: [id number] Admission: 07/27/19 Attend Phys: Robinson Nuñez MD Discharge: Date of : 60 Report #: [id number] THIS REPORT FOR: cc: Indira Tejeda MD, Aimee B. MD Forman, John M. MD ~ THIS REPORT FOR: //name// CC: Indira Rangel DATE OF SERVICE: 07/27/2019 We were asked by Dr. Meier to see the patient. HISTORY OF PRESENT ILLNESS: The patient is a 58-year-old admitted yesterday with chest pain. The patient states that he was sleeping, but at around 09:00 p.m., he was awakened with left-sided chest pain described as heaviness. The patient has had multiple stents in the LAD and this was a typical anginal discomfort for him. The patient took 2 nitroglycerin tablets, but got little relief and so he came to the Emergency Department. PAST MEDICAL HISTORY: Also significant for diabetes mellitus and asthma. CURRENT MEDICATIONS: Metoprolol and Plavix. ALLERGIES: None known. SOCIAL HISTORY: Denies cigarette use. Works at [employer] and has night hours. REVIEW OF SYSTEMS: CONSTITUTIONAL: Denies fever, chills, and weight change. EYES: Denies eye pain or vision change. HEENT: Denies headache, hearing changes, or ear or nose drainage. RESPIRATORY: Denies new cough or shortness of breath. CARDIAC: As mentioned, chest pain, no palpitations. GASTROINTESTINAL: No nausea, vomiting, or diarrhea. GENITOURINARY: No urgency, frequency, or dysuria. MUSCULOSKELETAL: Had some cramps in his muscles while lying in bed recently, but no history of claudication. SKIN: No rash or infection. NEUROLOGIC: No motor or sensory dysfunction. PHYSICAL EXAMINATION: GENERAL: The patient is lying in bed after a cardiac catheterization. [facility] [address] [place] [address] CONSULTATION Name: PARISFERNANDO Oseguera Room #: 247-[facility] IN M.R.#: [id number] Admission: 07/27/19 Attend Phys: Robinson Nuñez MD Discharge: Date of : 60 Report #: [id number] VITAL SIGNS: Temperature of 37, pulse rate 74, respiratory rate 18, blood pressure 170/98, and pulse ox is 97 on the room air. HEENT: No scleral icterus. No arcus. Pupils are round and equal. Extraocular movements are full. NECK: No mass. No bruit. CHEST: Clear to auscultation. HEART: Rhythm is regular and no murmur. ABDOMEN: Soft, no mass, and no tenderness. EXTREMITIES: No clubbing, cyanosis, or edema, 1-2+ dorsalis pedis pulses bilaterally. No obvious saphenous vein problem. SKIN: No rash or infection. MUSCULOSKELETAL: No deformity or asymmetry. Cardiac catheterization shows important restenosis in a, 3 or 4 times, stent to the LAD. In addition, this involves first diagonal and there is some mild disease in a ramus and the circumflex itself. The right coronary is relatively normal. Left ventricular function appears satisfactory. I reviewed the cardiac catheterization details with the patient. I have recommended coronary artery bypass surgery. Risks of this include, but are not limited to, bleeding, infection, anesthesia risks, heart and lung problems, stroke, and . Options and alternatives were reviewed. The patient understands all of this and wishes to proceed. We will try to arrange surgery for later this week. It is a privilege to participate in this nice fellow's care. Thank you for the consult. <ELECTRONICALLY SIGNED> By: Jorje Garcia MD 08/02/19 1646 [id number] Jorje Garcia MD /nt
--- NOTE | 2019-08-02 17:00 | NUR ---
DR CHERRY IN AT 1615 AND INFORMED THAT PATIENT WAS WHEEZING WITH THIS ASSESSMENT, COARSE AND POOR USAGE OF IS. I/O REVIEWED, PATIENT PLACED ON BIPAP WITH SETTING OF 6/12 RATE OF 12 AND IO2 OF 60 %. O2 SAT 98-99% BREATHE SOUNDS IMPROVED, PCXR REPEATED AND RODRIGUEZ INSERTED.
--- NOTE | 2019-08-02 23:30 | NUR ---
ASSUMED CARE OF PT AT 1900. PT INITIALLY ON BIPAP, BUT BECAME ANXIOUS AND TACHYPNEIC DURING SHIFT REPORT. PT ENCOURAGED TO KEEP BIPAP ON, BUT PT SAID IT WAS MAKING HIS "LUNGS HURT" AND DEMANDED FOR STAFF TO TAKE OFF THE MASK. PT EDUCATED ON IMPORTANCE OF THE BIPAP AND THAT IT WOULD HELP FOR HIM TO SLOW DOWN HIS BREATHING. PT DID NOT LISTEN AND CONTINUED TO DEMAND FOR THE MASK TO BE TAKEN OFF. BIPAP MASK REMOVED AND PT PLACED ON HIGH FLOW CANNULA AT 15 L. A FEW HOURS LATER, PT HAD CALMED DOWN AND BREATHING STILL APPEARED LABORED, SO PT WAS PLACED BACK ON BIPAP. NO MORE THAN TEN MINUTES LATER, PT PULLED OFF MASK AGAIN. PT REMAINS ON HIGH FLOW CANNULA. RT UPDATED ON SITUATION. WILL CONTINUE TO MONITOR.
[2019-08-03] VITALS (20 sets, daily range): BP systolic 100–179; BP diastolic 57–109
[2019-08-03 05:18] LABS: CALCIUM 8.2 mg/dL (8.5-10.1); CREATININE 1.9 mg/dL (0.7-1.3); POTASSIUM 4.9 mmol/L (3.5-5.1)
[2019-08-03 05:22] LABS: MAGNESIUM 2.3 mg/dL (1.8-2.4); PHOSPHORUS 3.7 mg/dL (2.5-4.9)
--- NOTE | 2019-08-03 07:13 | NUR ---
NO OTHER EVENTS OVERNIGHT. PT REMAINED ON HIGH FLOW CANNULA AT 10 L. PT ENCOURAGED TO COUGH AND DEEP BREATHE, BUT PT PUTS LITTLE EFFORT INTO ATTEMPTING TO DO SO. WILL CONTINUE TO MONTIOR.
--- NOTE | 2019-08-03 09:06 | NUR ---
Nutrition: Consult recieved Pt POD [address] will followup when out of ICU and closer to D/C to determine education needs.
--- NOTE | 2019-08-03 12:05 | NUR ---
discussed during los, no anticipated dc today. cm visited with pt at bedside for little bit, intro to case manage. noted pt on o2 per nasal canula. not on any o2 at home and no dme at home prior to hospital. pt not feeling well today, letting pt rest. pt son came for visit as well later this afternoon. will cont following as needed for dc needs.
--- NOTE | 2019-08-03 12:51 | NUR ---
PATIENT ALERT AND ORIENTED, VITALS STABLE. MEDICATED FOR PAIN WITH PRN MEDS. GETS ANXIOUS AND TACHYPNIC AT TIMES. ON 10L O2 PER HF CANNULA AND REFUSED TO WEAR BIPAP. PUL CONSULTED. UP TO THE CHAIR WITH ASSIST OF 2, RT. THORACENTESIS THIS MORNING BY DR. GRANADOS. CHEST TUBES AND WOUND VAC NOTED. PACERWIRES PRESENT AND CAPPED. TOLERATING DIET BUT POOR APPETITE. RODRIGUEZ WITH ADEQUATE OUTPUT. SLOWLY PROGRESSING TOWARDS POC GOALS.
--- NOTE | 2019-08-03 17:10 | NUR ---
MS CHEST TUBES DC'D THIS AFTERNOON PER ORDER, CHEST XRAY COMPLETED AND DR. CHERRY REVIEWED IT. PATIENT TOLERATED WELL-PRN PAIN MEDS ADMINISTERED.
--- NOTE | 2019-08-03 22:41 | NUR ---
CALLED DR. RAY ABOUT PT'S BP 179/74. WAS ORDERED TO GIVE AMLODIPINE TONIGHT. WILL CONTINUE TO MONITOR
[2019-08-04] VITALS (33 sets, daily range): BP systolic 104–191; BP diastolic 41–96
[2019-08-04 05:31] LABS: CALCIUM 8.1 mg/dL (8.5-10.1); CREATININE 1.6 mg/dL (0.7-1.3); POTASSIUM 4.9 mmol/L (3.5-5.1)
--- NOTE | 2019-08-04 05:32 | NUR ---
ASSUMED PT CARE AT 1900. VSS EXCEPT BP WHICH WAS ELEVATED, WITH SYSTOLIC RANGE OF 160s -170s. AM NORVASC GIVEN AT THIS TIME; THIS SEAMED TO HELP PT's BP STABILIZE OVER THE COURSE OF THE NOC. PT USES ACCESSORY MUSCLES TO BREATHE WHEN NOT ON BIPAP AND ON NC; SATS REMAINS >96%. PAIN MANAGEMENT PER AUG. PT IS STABLE NOW. MIDSTERNAL DRESSINGS REMAIN CDI DO HARVEST SITES. SOME DRIED DRAINAGE ON THE PLUERAL CHEST TUBE SITE NOTED. URINE OUTPUT>30ML/HR. PT IS STABLE, UP TO CHAIR THIS AM. PT APPEARS TO BE SLOWLY PROGRESSING WELL TOWARDS POC. WILL CONTINUE TO MONITOR.
[2019-08-04 06:06] LABS: HEMATOCRIT 34.9 % (42.0-52.0); HEMOGLOBIN 11.1 gm/dL (14.0-18.0); MCH 26.8 pg (26.0-34.0); MCHC 31.7 g/dL (28.0-37.0); MCV 84.7 fL (80.0-100.0); RBC 4.12 mil/uL (4.50-6.00); RDW 14.9 % (10.5-14.5); WBC 13.1 thou/uL (4.0-11.0)
[2019-08-05] VITALS (14 sets, daily range): BP systolic 108–177; BP diastolic 56–85
--- NOTE | 2019-08-05 00:34 | NUR ---
Pt consented to the BiPap at approx 0015, his sats were 95% and above, slightly labored, rates up to 20. But he is currently at 100% satuation, RR at 13 and is resting comfortably, HOB is at 30 degrees, chest tube is draining serosanguinous fluid to atrium. The bed is in the low/locked position, the call light is within reach, the siderails are up x 4 and the bed alarm is set. His heart pillow is at his side. Will continue to monitor.
--- NOTE | 2019-08-05 10:54 | NUR ---
PLUERAL CHEST TUBE D/C'D BY DR. CHERRY. PACER WIRES REMOVED. PT WORKED WITH OT THIS AM. UP TO CHAIR. STANDING WEIGHT TAKEN. HTN - DR. CHERRY AWARE. GIVEN SCHEDULED PO BLOOD PRESSURE MEDS. RIGHT IJ DISCONTINUED. RODRIGUEZ DISCONTINUED. BLOOD GLUCOSE THIS AM 57. APPLE JUCIE GIVEN. RE-CHECK GLUCOSE 100. ORDERS TO TRANSFER TO CCU. REPORT CALLED TO AMMON VILLARREAL. PT TRANSPORTED IN STABLE CONDTION TO ROOM 214
--- NOTE | 2019-08-05 11:00 | NUR ---
Nutrition: pt seen for LOS, S/P CABG X 5. Tolerating carb controlled, heart healthy diet although low appetite (improving), eating ~25% of meals. Intake prior to surgery was 100% of meals. Stable weights per chart review. BG 57-102. Likely hypoglycemic with poor intake. Will offer glucerna BID. Encouraged intake and attempted to obtain food preferences. Pt minimally conversive and appeared in pain. Required thoracentesis on 08/03. Chest tube removed this am. Poorly controlled DM noted with A1C 12.3. Will address education needs (DM/heart healthy) when out of ICU and closer to D/C. Follow for improved oral intake. Place as low risk
--- NOTE | 2019-08-05 12:31 | EKG ---
[facility] [place] [address] ELECTROCARDIOGRAM REPORT Name: FERNANDO TOLEDO Room #: 214-P ADM IN M.R.#: [id number] Admission: 07/27/19 Attend Phys: Robinson Nuñez MD Discharge: Date of : 60 Report #: [id number] THIS REPORT FOR: cc: Indira Tejeda MD, Aimee B. 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 : 1960 Requested By: Dane Ramos Order Number: [id number] MD: Wyatt Meier Measurements Intervals [place] Rate: 90 P: 53 NC: 204 QRS: 7 QRSD: 96 T: 163 QT: 349 QTc: 427 Interpretive Statements Sinus rhythm Borderline prolonged NC interval Cannot rule out septal infarct, old Repol abnrm suggests ischemia, lateral leads Compared to ECG 05/21/2019 15:27:09 No significant change was found Electronically Signed On 07-27-2019 17:23:48 GUEST HISTORY CLERK by Wyatt Meier [email or web address] <ELECTRONICALLY SIGNED> By: Wyatt Meier MD, FAC 07/27/19 1723 05 05 Wyatt Meier MD, FAC /EPI
--- NOTE | 2019-08-05 12:42 | EKG ---
[facility] [place] [address] ELECTROCARDIOGRAM REPORT Name: FERNANDO TOLEDO Room #: 214-P ADM IN M.R.#: [id number] Admission: 07/27/19 Attend Phys: Robinson Nuñez MD Discharge: Date of : 60 Report #: [id number] THIS REPORT FOR: cc: Indira Tejeda MD, Aimee B. MD Lundgren,Wyatt Sanz MD [facility] ~ THIS REPORT FOR: //name// [facility] Test Date: 2019-07-31 Test Time: 16:41:58 Pat Name: FERNANDO TOLEDO Department: Room: 247 Gender: M Muffler Installer: Oumar DUNN : 1960 Requested By: Jorje Garcia Order Number: [id number] MD: Wyatt Meier Measurements Intervals [place] Rate: 103 P: 53 NM: 172 QRS: 11 QRSD: 82 T: 97 QT: 333 QTc: 436 Interpretive Statements Sinus tachycardia Abnormal R-wave progression, early transition Borderline repolarization abnormality Compared to ECG 07/28/2019 07:03:47 ST and T wave abnormality is less prominent Early R-wave progression is now present Electronically Signed On 07-31-2019 17:38:50 MANAGER REHAB by Wyatt Meier [email or web address] <ELECTRONICALLY SIGNED> By: Wyatt Meier MD, FAC 07/31/19 1738 1641 1641 Wyatt Meier MD, [facility] /EPI
--- NOTE | 2019-08-05 12:42 | EKG ---
[facility] [place] [address] ELECTROCARDIOGRAM REPORT Name: FERNANDO TOLEDO Room #: 214-P ADM IN M.R.#: [id number] Admission: 07/27/19 Attend Phys: Robinson Nuñez MD Discharge: Date of : 60 Report #: [id number] THIS REPORT FOR: cc: Indira Tejeda MD, Aimee B. MD Lundgren,Wyatt Sanz MD [facility] ~ THIS REPORT FOR: //name// [facility] Test Date: 2019-07-27 Test Time: 08:08:07 Pat Name: FERNANDO TOLEDO Department: Room: 206 Gender: M Staff Physical Therapy Assistant: BALWINDER : 1960 Requested By: Roxanna Diaz Order Number: [id number] MD: Wyatt Meier Measurements Intervals [place] Rate: 72 P: 72 MS: 207 QRS: 20 QRSD: 94 T: 176 QT: 385 QTc: 422 Interpretive Statements Sinus rhythm Borderline prolonged MS interval Repol abnrm suggests ischemia, anterolateral Compared to ECG 05/21/2019 15:27:09 T wave abnormality is more pronounced Electronically Signed On 07-27-2019 17:39:53 LENS HARDENER by Wyatt Meier [email or web address] <ELECTRONICALLY SIGNED> By: Wyatt Meier MD, [facility] 07/27/19 1739 [id number] Wyatt Meier MD, [facility] /EPI
--- NOTE | 2019-08-05 12:42 | EKG ---
[facility] [place] [address] ELECTROCARDIOGRAM REPORT Name: FERNANDO TOLEDO Room #: 214-P ADM IN M.R.#: [id number] Admission: 07/27/19 Attend Phys: Robinson Nuñez MD Discharge: Date of : 60 Report #: [id number] THIS REPORT FOR: cc: Indira Tejeda MD, Aimee B. MD Lundgren,Wyatt Sanz MD [facility] ~ THIS REPORT FOR: //name// [facility] Test Date: 2019-08-01 Test Time: 08:20:57 Pat Name: FERNANDO TOLEDO Department: Room: 247 P Gender: M Financial Operations Consultant: HALIE : 1960 Requested By: Jorje Garcia Order Number: [id number] MD: Wyatt Meier Measurements Intervals [place] Rate: 103 P: 39 CO: 168 QRS: 33 QRSD: 81 T: 156 QT: 337 QTc: 441 Interpretive Statements Sinus tachycardia Anteroseptal infarct, old Nonspecific T abnormalities, lateral leads Compared to ECG 07/31/2019 16:41:58 Myocardial infarct finding now present Change in the T wave abnormality Electronically Signed On 08-03-2019 7:24:12 ATOMIC PROCESS ENGINEER by Wyatt Meier [email or web address] <ELECTRONICALLY SIGNED> By: Wyatt Meier MD, FAC 08/03/19723 9 9 Wyatt Meier MD, FAC /EPI
--- NOTE | 2019-08-05 12:42 | EKG ---
[facility] [place] [address] ELECTROCARDIOGRAM REPORT Name: FERNANDO TOLEDO Room #: 214-P ADM IN M.R.#: [id number] Admission: 07/27/19 Attend Phys: Robinson Nuñez MD Discharge: Date of : 60 Report #: [id number] THIS REPORT FOR: cc: Indira Tejeda MD, Aimee B. MD Lundgren,Wyatt Sanz MD [facility] ~ THIS REPORT FOR: //name// [facility] Test Date: 2019-07-28 Test Time: 07:03:47 Pat Name: FERNANDO TOLEDO Department: Room: 206 P Gender: M Studio Set Up Worker: BALWINDER : 1960 Requested By: Wyatt Meier Order Number: [id number] MD: Wyatt Meier Measurements Intervals [place] Rate: 75 P: 46 TX: 204 QRS: 16 QRSD: 89 T: 171 QT: 379 QTc: 424 Interpretive Statements Sinus rhythm Borderline prolonged [place] interval Probable anteroseptal infarct, old Repol abnrm suggests ischemia, anterolateral Compared to ECG 07/27/2019 08:08:07 No significant change was found Electronically Signed On 07-28-2019 9:25:39 THEATER TECHNICIAN by Wyatt Meier [email or web address] <ELECTRONICALLY SIGNED> By: Wyatt Meier MD, FAC 07/28/19924 2 2 Wyatt Meier MD, [facility] /EPI
--- NOTE | 2019-08-05 12:42 | EKG ---
[facility] [place] [address] ELECTROCARDIOGRAM REPORT Name: FERNANDO TOLEDO Room #: 214-P ADM IN M.R.#: [id number] Admission: 07/27/19 Attend Phys: Robinson Nuñez MD Discharge: Date of : 60 Report #: [id number] THIS REPORT FOR: cc: Indira Tejeda MD, Aimee B. MD Lundgren,Wyatt Sanz MD [facility] ~ THIS REPORT FOR: //name// [facility] Test Date: 2019-08-04 Test Time: 07:32:41 Pat Name: FERNANDO TOLEDO Department: Room: 247 P Gender: M Fashion Journalist: BALWINDER : 1960 Requested By: Jorje Garcia Order Number: [id number] MD: Wyatt Meier Measurements Intervals [place] Rate: 80 P: 34 ME: 199 QRS: 2 QRSD: 89 T: QT: 386 QTc: 446 Interpretive Statements Sinus rhythm Borderline T wave abnormalities Compared to ECG 08/01/2019 08:20:57 Sinus tachycardia no longer present T-wave abnormality still present Electronically Signed On 08-04-2019 9:19:18 MANAGING MEMBER by Wyatt Meier [email or web address] <ELECTRONICALLY SIGNED> By: Wyatt Meier MD, [facility] 08/04/19918 1 1 Wyatt Meier MD, [facility] /EPI
--- NOTE | 2019-08-05 17:34 | NUR ---
PT TRANSFERED FROM ICU IN STABLE CONDITION. ALERT AND ORIENTED. ASSESSMENT CHARTED. WOUND VAC INTACT. STERNUM PRECAUTION ENFORCED. UP IN THE CHAIR. AMUBALTED X 1 THIS SHIFT. ENCOURAGED TO USE IS. RT TREATMENT PROVIDED ORDERED. NO CARDIAC OR RESPIRATORY DISTRESS NOTED. WILL CONTINUE TO MONITOR.
[2019-08-06 03:43] VITALS: BP 133/68
--- NOTE | 2019-08-06 04:06 | NUR ---
ASSESSMENT DOCUMENTED.PT RESTING IN NO ACUTE DISTRESS.VSS.ON BIPAP AT THIS TIME,SATS ADEQUATE.PRN BREATHING TX ADMINISTERED PER PT REQUEST.IS ENCOURAGED,URINATING W/O DIFFICULTIES,UO ADEQUATE.DENIES PAIN.WOUND VAC IN PLACE TO SUCTION AT 125MMHG.SURGICAL INCISIONS COVERED WITH CLEAN DRESSING,DRY AND INTACT.PT REFUSED TO AMBULATE WHEN OFFERED.SR ON MONITOR.NO CONCERNS REPORTED OR NOTED AT THIS TIME.WILL CONT TO MONITOR PER POC.
[2019-08-06 05:44] LABS: CALCIUM 7.9 mg/dL (8.5-10.1); CREATININE 1.4 mg/dL (0.7-1.3); POTASSIUM 4.9 mmol/L (3.5-5.1)
[2019-08-06 09:39] VITALS: BP 136/69
[2019-08-06 11:00] VITALS: BP 127/62
--- NOTE | 2019-08-06 15:27 | NUR ---
PT ALERT AND ORIENTED. ASSESSMENT CHARTED. VSS. AMBULATED X3 THIS SHIFT. WOUND VAC INTACT. UP IN THE CHAIR THIS SHIFT. REPORT HAVING STERNUM PAIN DENIED THE NEED FOR PAIN MED. WILL CONTINUE TO MONITOR.
[2019-08-06 16:00] VITALS: BP 127/60
--- NOTE | 2019-08-06 16:01 | NUR ---
PATIENT SEEN FOR REHAB CONSULT THIS DATE BY NOHEMY LOERA NP WITH DR. SWEENEY. PATIENT IS A GOOD CANDIDATE FOR REHAB. AUTHORIZATION SUBMITTED THIS DATE TO [facility]. WILL AWAIT RESPONSE. THANK YOU FOR THIS REFERRAL.
--- NOTE | 2019-08-06 16:35 | NUR ---
Case discussed with the care team and CTS. 5N rehab eval requested. Pt is progressing slowly pod#6 s/p CABG. The pt is requiring 8liters of O2. Chest tube is out. Sternal vac in place. Therapy is working with the pt. He will need to be indep to go home. Awaiting 5N eval/recommendations.
[2019-08-06 20:30] VITALS: BP 149/69
--- NOTE | 2019-08-07 03:10 | NUR ---
ASSESSMENTS CHARTED, MEDS GIVEN CHARTED. PATIENT POST OP DAY 6 FROM CABG. ALERT AND ORIENTED, SINUS RHYTHM ON TELEMETRY. ON 7 LITERS HIGH FLOW CANNULA LUNGS COARSE, DESATS WITH ACTIVITY. USING URINAL AT BEDSIDE. ACHS ON LOW SSI. WOUND VAC ON STERNUM, GOOD SEAL. VEIN HARVEST SITES IN LEFT LEG SHREE EXCEPT GROIN SITE. STATES PAIN 4/10 BUT DOES NOT WANT ANY PAIN MEDS. PLAN IS TO TRANSFER TO REHAB TO CONTINUE STRENGTHENING.
[2019-08-07 04:30] VITALS: BP 134/70
[2019-08-07 07:30] VITALS: BP 151/70
--- NOTE | 2019-08-07 10:13 | NUR ---
Follow up: S/P CABG x 5, post op day 7. Hx poor controlled diabetes, A1C 12.3. BG improving, endocronologist following. PO intake starting to signficantly improve, eating 75-100% of meals. Refusing glucerna shakes so will discontinue these. Slow progress towards goal and will likely need 5N rehab. Requires 8L 02. Wts stable. Will address any nutrition education needs once transferred to rehab and pt more receptive to education.
[2019-08-07 11:30] VITALS: BP 133/54
[2019-08-07] MEDS ORDERED: IRON325 PO (13:45)
[2019-08-07] MEDS ORDERED: LIPITOR80 MG PO (13:46)
[2019-08-07] MEDS ORDERED: PACERONE 200 M200 M1 PO (13:46)
[2019-08-07] MEDS ORDERED: METOPROLOL SUCC25 M1 PO (13:47)
[2019-08-07] MEDS ORDERED: FELODIPINE 5 MG5 M1 PO (13:48)
[2019-08-07] MEDS ORDERED: LANTUS SUBQ (13:49)
--- NOTE | 2019-08-07 14:02 | NUR ---
[facility] ACUTE REHAB CAN ACCEPT THE PT AND HAVE INSURANCE AUTH IN PLACE. PT NOT READY TODAY D/T CXR RESULTS AND NEED FOR MORE DIURESIS. POSSIBLE WEEKEND DC TO 5N IF CLEARED MEDICALLY. PT IS AWARE. THE 5N LIASON INDICATES THAT THE INS AUTH IS GOOD FOR BOTH SATURDAY AND SATURDAY. 5N BROCHURE PROVIDED TO THE PT AND HE IS AGREEABLE WHEN READY. CARE TEAM UPDATED.
--- NOTE | 2019-08-07 16:38 | NUR ---
PATIENT ACCEPTED BY REHAB AND AUTHORIZATION RECEIVED BY INSURANCE COMPANY THIS DATE. PLAN WAS FOR PATIENT TO COME TO REHAB THIS DATE, BUT IT WAS DETERMINED THAT PATIENT IS NOT MEDICALLY READY. INSURANCE CONTACTED AND THEY STATED THAT PATIENT COULD COME OVER WEEKEND ON AUTHORIZATION GIVEN. SPOKE WITH NURSE CARING FOR PATIENT THIS DATE. PATIENT WILL NOT BE READY TO ADMIT ON 08/08/19, BUT POSSIBLY ON 08/09/19. DENILSON IS BOOTH CASHIER STONECUTTER THIS WEEKEND. PLEASE CALL HER AT [phone] IF PATIENT IS READY TO ADMIT TO REHAB ON SATURDAY.
[2019-08-07 17:00] VITALS: BP 149/66
--- NOTE | 2019-08-07 19:34 | NUR ---
RECEIVED PT'S CARE AROUND 729; PT. ON CHAIR; AOX4; DURING ASSESSMENT NO C/O PAIN; PT. LOOKING UNCORFORTABLE; FROWN/GRIMACE; ST. NOT HAVING PAIN; ON 5L O2; AM MEDICATION GIVEN; CHEST XR ORDERED; PHYSICIAN NOTIFIED OF RESUTLS; DR. CHERRY NOTIFIED; ORDERS ON PLACE; THORACENTESIS NOT PERFORMED; DR. MERLOS NOTIFIED; NO NEW ORDERS; HOSPITALIST NOTIFIED; ADMITED TO REHAB; PENDING AT THE MOMMENT; ABLE TO HAVE A BM AFTER SUPPOSITORY; HR ON THE MONITOR; ASSESSMENT CHARGED; FOLLOWING POC; PASSED ON REPORT; DR. MARTINEZ AT THE BED SIDE DURING SHIFT CHANGE;
[2019-08-07 20:15] VITALS: BP 126/68
[2019-08-08] VITALS (7 sets, daily range): BP systolic 106–156; BP diastolic 51–79
[2019-08-08 04:27] LABS: ABSOLUTE NEUTROPHILS 11.3 thou/uL (1.4-8.2); BASOPHILS 0.8 % (0.0-2.0); EOSINOPHILS 2.8 % (0.0-3.0); HEMATOCRIT 35.3 % (42.0-52.0); HEMOGLOBIN 11.4 gm/dL (14.0-18.0); LYMPHOCYTES 9.4 % (24.0-44.0); MCH 26.6 pg (26.0-34.0); MCHC 32.3 g/dL (28.0-37.0); MCV 82.2 fL (80.0-100.0); MONOCYTES 9.1 % (1.0-8.0); PLATELET COUNT 331 thou/uL (150-400); POLYS 77.9 % (36.0-66.0); RBC 4.29 mil/uL (4.50-6.00); RDW 14.8 % (10.5-14.5); WBC 14.5 thou/uL (4.0-11.0)
[2019-08-08 04:34] LABS: ALBUMIN 2.4 g/dL (3.4-5.0); CALCIUM 8.2 mg/dL (8.5-10.1); CREATININE 1.2 mg/dL (0.7-1.3); MAGNESIUM 2.1 mg/dL (1.8-2.4); PHOSPHORUS 3.6 mg/dL (2.5-4.9); POTASSIUM 4.5 mmol/L (3.5-5.1); TOTAL BILIRUBIN 0.5 mg/dL (<0.1-1.0); TOTAL PROTEIN 6.2 g/dL (6.4-8.2)
--- NOTE | 2019-08-08 06:04 | NUR ---
ASSESSMENTS CHARTED, MEDS GIVEN CHARTED. PATIENT WAS SITTING IN CHAIR AT START OF SHIFT. WHEN READY TO MOVE TO BED, PATIENT WENT ON A WALK AROUND UNIT USING THE WALKER, AND OXYGEN. ONE COMPLETE LAP, PATIENT HAD GOOD ENDURANCE. RECOVERED OXYGEN NEEDS QUICKLY. GOT PATIENT UP FOR STANDING WEIGHT, RETURN TO BED. PATIENTS XRAY SHOWED INCREASE FLUID IN CHEST, WENT FOR THORACENTESIS DURING DAY, BUT WAS NOT ENOUGH FLUID FOR PROCEDURE. DR. MARTINEZ WANTS TO CONSULT WITH CARDIOLOGY ABOUT LASIX DOSE. PATIENT HAD BOWEL MOVEMENT DURING DAY, DR. MARTINEZ WANT PATIENT TO DRINK PRUNE JUICE TONIGHT AND START SUPPOSITORIES IN THE AM. NO PRUNE JUICE WAS AVAILBLE DURING THE NIGHT. PLAN IS FOR PATIENT TO GO TO REHAB ON SATURDAY.
--- NOTE | 2019-08-08 19:31 | NUR ---
RECEIVED PT'S CARE AROUND 0730; PT. ON BED; AX04; NO C/O PAIN; DURING AM ASSESSMENT MOVED TO CHAIR; AM MEDICATIONS GIVEN; HOLS INSULIN; BS 80; EDUCATED ABOUT GOALS THROUGH DAY; ST. UNDERSTANDING; WALKED WITH NURSE AROUND THE UNIT; TOLERATED WELL; 02 TITRATE TO 3L; 95%; PER DR. MARTINEZ PT. READY TO BE TRANSFER TO 5N; MOLD CHECKER NOTIFIED; 5N SLOPE HOIST OPERATOR NURSE NOTIFIED; CALLED BACK FROM DR. MARTINEZ; PT. NOT ABLE TO BE MOVED AT THE [facility]; MOLD CHECKER NOTIFIED; ASSESSMENT CHARGED; FOLLOWING POC; PASSED ON REPORT;
--- NOTE | 2019-08-09 03:13 | NUR ---
ASSESSMENTS CHARTED, MEDS GIVEN CHARTED. ALERT AND ORIENTED. SINUS RHYTHM ON TELEMETRY. LUNGS CLEAR ON 3 LITERS NASAL CANNULA, USING STERNAL PRECAUTIONS WHEN COUGHING AND MOVING ABOUT. PATIENT WALKED TWO LAPS AROUND UNIT BEFORE MOVING TO THE BED FOR THE NIGHT. STERNAL INCISION WITH WOUND VAC. VEIN HARVEST SITES OPEN TO AIR. PLAN IS FOR PATIENT TO MOVE UP TO 5 NORTH IN THE MORNING. FALL PRECAUTIONS IN PLACE. DENIED PAIN. VSS.
[2019-08-09 04:45] VITALS: BP 128/86
[2019-08-09 08:00] VITALS: BP 107/61
[2019-08-09 12:00] VITALS: BP 131/60
--- NOTE | 2019-08-09 16:34 | NUR ---
RECEIVED PT'S CARE AROUND 0713; PT. SITTING ON THE BED SIDE; AOX4; DURING AM ASSESMENT PT. NO C/O PAIN; AM MEDICATIONS GIVEN; INSULIN NOT GIVEN; INSULIN SCALE INCREASE TO MODERATE PER START UP SPECIALIST ORDER; POOR APPETITE DURING LUNCH; MONITORING; OK TO TRANSFER PT. TO N; REPORT GIVEN; PHYSICIAN NOTIFIED; WAITING FOR D/C ORDERS; ASSESSMENT CHARGED; FOLLOWING POC; PT. UPDATE ABOUT TRANSFER; ST. UNDERSTANDING; FOLLOWING POC;
[2019-08-09] MEDS ORDERED: FUROSEMIDE20 MG/2 ML IV PUSH (16:45)
== END 2019-08-09 18:13 | DRG 233 ==
LOC: ER 21:56 → EROBS 07-27 00:06 → ER 07-27 00:06 → TBA 07-27 00:06 → 2N 07-27 00:06 → EROBS 07-27 01:14 → TBA 07-31 11:44 → ICU 07-31 14:33 → 2N 08-05 10:53
PROVIDERS: Emergency Medicine; Internal Medicine; Internal Medicine Pulmonary Disease; Nurse Practitioner; Nurse Practitioner Family; Surgery Vascular Surgery; ADMIT Hospitalist
PROC: B215YZZ Fluoroscopy of Left Heart using Other Contrast (ICD-10-PCS; principal; 2019-07-27)
PROC: B211YZZ Fluoroscopy of Multiple Coronary Arteries using Other Contrast (ICD-10-PCS; principal; 2019-07-27)
PROC: 4A023N7 Measurement of Cardiac Sampling and Pressure, Left Heart, Percutaneous Approach (ICD-10-PCS; principal; 2019-07-27)
PROC: 02100Z9 Bypass Coronary Artery, One Artery from Left Internal Mammary, Open Approach (ICD-10-PCS; 2019-07-31)
PROC: 021309W Bypass Coronary Artery, Four or More Arteries from Aorta with Autologous Venous Tissue, Open Approach (ICD-10-PCS; 2019-07-31)
PROC: 06BQ4ZZ Excision of Left Saphenous Vein, Percutaneous Endoscopic Approach (ICD-10-PCS; 2019-07-31)
PROC: 5A1221Z Performance of Cardiac Output, Continuous (ICD-10-PCS; 2019-07-31)
PROC: 5A09457 Assistance with Respiratory Ventilation, 24-96 Consecutive Hours, Continuous Positive Airway Pressure (ICD-10-PCS; 2019-08-02)
PROC: 0W993ZZ Drainage of Right Pleural Cavity, Percutaneous Approach (ICD-10-PCS; 2019-08-03)
PROC: 5A09357 Assistance with Respiratory Ventilation, Less than 24 Consecutive Hours, Continuous Positive Airway Pressure (ICD-10-PCS; 2019-08-06)
PROC: 5A09357 Assistance with Respiratory Ventilation, Less than 24 Consecutive Hours, Continuous Positive Airway Pressure (ICD-10-PCS; 2019-08-07)
DX: I25.10 Atherosclerotic heart disease of native coronary artery without angina pectoris (principal); E43 Unspecified severe protein-calorie malnutrition; J96.01 Acute respiratory failure with hypoxia; N17.9 Acute kidney failure, unspecified; Z68.41 Body mass index [BMI] 40.0-44.9, adult; D62 Acute posthemorrhagic anemia; J98.11 Atelectasis; J90 Pleural effusion, not elsewhere classified; E11.65 Type 2 diabetes mellitus with hyperglycemia; J45.909 Unspecified asthma, uncomplicated; E11.22 Type 2 diabetes mellitus with diabetic chronic kidney disease; I12.9 Hypertensive chronic kidney disease with stage 1 through stage 4 chronic kidney disease, or unspecified chronic kidney disease; E78.5 Hyperlipidemia, unspecified; E11.319 Type 2 diabetes mellitus with unspecified diabetic retinopathy without macular edema; N18.3 Chronic kidney disease, stage 3 (moderate); E66.01 Morbid (severe) obesity due to excess calories; Z95.5 Presence of coronary angioplasty implant and graft; Z79.4 Long term (current) use of insulin; Z79.899 Other long term (current) drug therapy; Z79.82 Long term (current) use of aspirin; Z79.02 Long term (current) use of antithrombotics/antiplatelets; I25.2 Old myocardial infarction; Z82.49 Family history of ischemic heart disease and other diseases of the circulatory system; Z83.3 Family history of diabetes mellitus; Z84.1 Family history of disorders of kidney and ureter; Z91.19 Patient's noncompliance with other medical treatment and regimen
CPT/HCPCS: 10078; 10081; 47000; 47001; 47002; 47297; 48888; 50010; 50249; 50409; 50456; 50498; 50643; 50668; 50953; 51301; 52131; 52259; 52314; 53327; 53358; 54118; 56455; 56524; 56525; 56526; 56527; 56528; 56531; 56534; 56668; 56760; 56898; 57093; 57167; 62110; 62950; 65003; 65020; 65047; 65090; 65120; 65135

== ENCOUNTER 2019-08-07 14:58 | Inpatient (IN) | payer OTHER ==
[~2019-08-07] VITALS: Ht 152.4 cm; Wt 88.5 kg
[~2019-08-07 14:58] MED LIST changes: +FELODIPINE 5 MG5 M1 PO; +IRON325 PO; +LIPITOR80 MG PO; +METOPROLOL SUCC25 M1 PO; +PACERONE 200 M200 M1 PO
[2019-08-09 08:24] VITALS: BP 124/57
[2019-08-09] MEDS ORDERED: FUROSEMIDE20 MG/2 ML IV PUSH (16:45)
--- NOTE | 2019-08-09 18:41 | NUR ---
ASSUMED CARE OF PT AT 181 WHEN PT BROUGHT TO UNIT BY 2N BAND SAW RUNNER. PT ASSISTED INTO BED, VITAL SIGNS OBTAINED, ADMISSION WEIGHT COMPLETED. MEDICATION LIST FAXED TO PHARMACY. MULTIPLE CALLS PLACED TO ADMITTING, NO RESOPNSE. REPORT GIVEN TO ONCOMMING NURSE. FALL PRECAUTIONS IN PLACE, NURSING WILL CONTINUE TO MONITOR.
[2019-08-10 06:25] LABS: HEMOGLOBIN 12.5 gm/dL (14.0-18.0); MCH 26.7 pg (26.0-34.0); MCHC 32.1 g/dL (28.0-37.0); MCV 83.3 fL (80.0-100.0); RBC 4.69 mil/uL (4.50-6.00); RDW 14.9 % (10.5-14.5); WBC 12.7 thou/uL (4.0-11.0)
[2019-08-10 06:43] LABS: CALCIUM 8.9 mg/dL (8.5-10.1); CREATININE 1.4 mg/dL (0.7-1.3); POTASSIUM 4.5 mmol/L (3.5-5.1)
[2019-08-10 07:45] VITALS: BP 118/62
--- NOTE | 2019-08-10 09:52 | NUR ---
chart review. pt up in recliner chair. intro to cm, team meeting and dcp. pt is able to make his needs know. he is holding on to his heart pillow. pt lives at home with and son. he was completely independent prior to hospital. 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 manage own medication, drives vehicle. no past hh or rehab. will cont following as needed for dc needs..
[2019-08-10 19:32] VITALS: BP 145/66
--- NOTE | 2019-08-10 19:43 | NUR ---
ASSUMED CARE OF PT AT 0700. PT IS A&OX4 AND VITAL SIGNS ARE STABLE. PT DENIES PAIN AND PARTICIPATED IN SCHEDUELD THERAPIES. ACCU CHECKS ACHS AND MANAGED WITH INSULIN, NEW INSULIN ORDERS TODAY. FAMILY IN ROOM MOST OF SHIFT. PT CALLS APPROPRIATELY FOR ASSISTANCE. FALL PRECAUTIONS IN PLACE AND NURSING WILL CONTINUE TO MONITOR.
--- NOTE | 2019-08-11 02:09 | NUR ---
PT ASSESSMENT COMPLETED AND VSS. MEDS GIVEN ORDERED AND WELL TOLERATED. SUPPORTIVE FAMILY AT BEDSIDE. PT SOA AFTER WALKING TO THE BATHROOM. RT TX HELPFUL. SAT WNL ON NC. STERNAL PRECAUTIONS FOLLOWED. STERNAL DSG AND WOUND VAC DRY AND INTACT AND WNL. PT REPOSITIONING SELF IN BED. SUPPORTIVE FAMILY AT BEDSIDE. SNACK PROVIDED WITH HS INSULIN. SLEEPING WELL. WILL CONTINUE TO MONITOR FREQUENTLY.
[2019-08-11 06:38] VITALS: BP 134/70
[2019-08-11 07:30] VITALS: BP 129/67
--- NOTE | 2019-08-11 08:45 | HC ---
[facility] [place] [address] CONSULTATION Name: FERNANDO TOLEDO Room #: 510-P ADM IN M.R.#: [id number] Admission: 08/09/19 Attend Phys: Cody Roque MD Discharge: Date of : 60 Report #: [id number] THIS REPORT FOR: cc: Indira Tejeda MD, Aimee B. MD Al-Mubaslat, Ahmad MD ~ CC: Indira Roque DATE OF SERVICE: 08/10/2019 ENDOCRINE CONSULTATION NOTE CONSULTING PHYSICIAN: Dr. Cody Roque. PRIMARY CARE PHYSICIAN: Dr. Indira Tejeda. REASON FOR CONSULTATION: Uncontrolled type 2 diabetes mellitus. HISTORY OF PRESENT ILLNESS: This is a 58-year-old male patient whose medical background is significant for multiple medical issues including type 2 diabetes mellitus, hypertension, hyperlipidemia as well as asthma. The patient is also known to have coronary artery disease, status post ID in the past as well as a stent placement. He had presented to [facility] on 07/27/2019 with chest pain, and after having gone initial evaluation, it was determined that he would be best served by coronary arterial bypass grafting. He underwent CABG x 5, BALBUENA to LAD, AO to diagonal, ramus and marginal, AO to PDA on 07/31/2019. The patient had a slightly complicated course following his surgery with issues of respiratory failure, hypoxemia as well as pleural effusion requiring chest tube placement that was eventually removed as the patient did better. The patient has been a type 2 diabetic for many years and he reported an antidiabetic regimen consisting of Jardiance 25 mg daily as well as Levemir insulin at a high dose of 38 units twice a day in addition to the occasional use of R insulin. He acknowledged noncompliance issues with medicinal intake, diet and blood glucose monitoring. His hemoglobin A1c was found to be at 12.3%. When he first arrived, his insulin regimen was restarted and he did well, and postoperatively, he has had a fairly diminished p.o. intake and was maintained up until his transfer to the rehab unit on Lantus insulin 14 units twice a day as well as Humalog insulin 10 units before meals. The patient is not aware of issues of diabetic nephropathy or retinopathy. He does not have major difficulties with diabetic neuropathy. The patient is also known to have hypertension and hyperlipidemia and is on active therapy for both. [address] [address] CONSULTATION Name: FERNANDO TOLEDO Room #: 510-P [facility] IN ..#: [id number] Admission: 08/09/19 Attend Phys: Cody Roque MD Discharge: Date of : 60 Report #: [id number] REVIEW OF SYSTEMS: CONSTITUTIONAL: Fatigue, tiredness, but not fever or chills or body weight changes. HEENT: Negative for sinus pain, congestion, ear drainage. PULMONARY: Shortness of breath, chest wall tenderness, but not cough or hemoptysis. CARDIAC: Negative for palpitations, syncope or presyncope, but noted for chest wall pain and tenderness. GASTROINTESTINAL: Occasional abdominal distention, nausea, but no vomiting, no major changes in bowel movement frequency. NEUROLOGY: Negative for loss of consciousness, seizure activity or frequent severe headaches. DERMATOLOGY: Negative for rash, ulceration, itching or other major abnormalities. PSYCHIATRIC: Negative for delusions, hallucinations. Otherwise, review of systems noncontributory other than those mentioned in HPI. PAST MEDICAL HISTORY: 1. Type 2 diabetes mellitus. 2. Hypertension. 3. Hyperlipidemia. 4. Coronary artery disease, status post ID in the past, status post stent placement. 5. Asthma. 6. Recent issues with pleural effusion development and respiratory failure. PAST SURGICAL HISTORY: Noted for recent CABG x 5 on 07/31/2018. CURRENT MEDICATIONS: Include pantoprazole 20 mg daily, losartan 100 mg daily, Humalog 10 units t.i.d. a.c., albuterol p.r.n., amlodipine 5 mg daily, aspirin 81 mg daily, Plavix 75 mg daily, ferrous sulfate 325 mg daily, isosorbide mononitrate 30 mg daily, metoprolol 25 mg daily. ALLERGIES: No known drug allergies. FAMILY HISTORY: Noncontributory. SOCIAL HISTORY: The patient denies use of tobacco, alcohol or illicit drugs. PHYSICAL EXAMINATION: GENERAL: Pleasant male patient not in apparent distress. VITAL SIGNS: Blood pressure is 118/62 mmHg, heart rate is 85 beats per minute, respiration 18 per minute, temperature is 36.4 degrees. CONSTITUTIONAL: The patient appears comfortable, sitting in chair, not in apparent pain or distress. [address] [address] CONSULTATION Name: FERNANDO TOLEDO Room #: 510-P [facility] IN M.R.#: [id number] Admission: 08/09/19 Attend Phys: Cody Roque MD Discharge: Date of : 60 Report #: [id number] HEENT: Anicteric sclerae. Intact extraocular motions. NECK: Supple, without JVD, carotid bruits or lymphadenopathy. I do not appreciate thyromegaly. CHEST: Noted for recent CABG incision, limited chest wall expansion,. moderate air entry bilaterally with scattered rales. HEART: Regular rate and rhythm without murmurs or gallops. ABDOMEN: Soft, lax. No guarding. Active bowel sounds. EXTREMITIES: Lower extremity exam noted for trace ankle edema, stasis dermatitis, faint pedal pulses. Sensation to light touch is largely intact. NEUROLOGIC: Awake, alert, and oriented to time, place and person. The remainder of his examination is largely nonfocal. PSYCHIATRIC: Flat mood and affect, appropriate, interactive. LABORATORY DATA: Blood glucose values over the past 24 hours have been noted for well controlled fasting blood glucose values ranging from 80-127 mg/dL, however, with recurrent issues with postprandial hyperglycemia reaching to mid 200 mg/dL range. Sodium 134, potassium 4.5, chloride 97, CO2 of 29, anion gap 8, BUN 29, creatinine 1.4, total bilirubin 0.5, calcium 8.9, phosphorus 3.6, magnesium 2.1, alkaline phosphatase 98, ALT 27, total protein 6.2, albumin 2.4, EGFR 52. Lactic acid 1.2. Troponin 1.95 that was preop. INR 1.2. White blood count 12.7, hemoglobin 12.5, hematocrit 39, platelets 390, hemoglobin A1c earlier on 07/27/2018 was at 12.3%. ASSESSMENT AND PLAN: 1. Type 2 diabetes mellitus. As noted above, the patient has an uncontrolled baseline as per his reported blood glucose values and as per his recorded hemoglobin A1c. The patient was counseled extensively earlier during his hospital stay and today about the importance of achieving and maintaining adequate glycemic control in order to prevent future diabetic complications. Given his diminished p.o. intake, the patient has needed a considerably lower insulin support than he does normally and is currently maintained on Lantus insulin 14 units twice a day with adequate fasting control. However, we have encountered a difficulty of having to withhold his scheduled Humalog insulin dosage due to his minimal p.o. intake. However, with that done, he still managed to develop significant recurrent postprandial hyperglycemia due to eating partially. His Humalog insulin dose has been raised recently to 10 units per meal and his Humalog supplemental scale intensity has been raised to moderate. I counseled the patient about the importance of consistent p.o. intake to help establish a reliable basal bolus regimen around his meals, which he understands. I will keep this regimen for the time being as we continue to monitor his blood glucose a.c. and at bedtime and adjust it as needed going forward. 2. Hypertension. The patient's level of blood pressure control is adequate on the current losartan and Norvasc regimen, he is to continue with the same. 3. Hyperlipidemia. The patient is currently on atorvastatin therapy and tolerates it well, he is to continue with the same. [address] [address] CONSULTATION Name: FERNANDO TOLEDO Room #: 510-P [facility] IN ..#: [id number] Admission: 08/09/19 Attend Phys: Cody Roque MD Discharge: Date of : 60 Report #: [id number] 4. Coronary artery disease. Status post ID, status post CABG on 07/31/2019. The patient is in recovery and has done fairly well since removal of his chest tube postoperatively. I certainly appreciate this referral by Dr. Roque. I have reviewed the patient's clinical care notes, laboratory data, radiologic data, and other pertinent clinical information pertinent to this patient's care for over 35 minutes. <ELECTRONICALLY SIGNED> By: Edgar Glover MD 08/11/19 0845 [id number] Edgar Glover MD /nt
--- NOTE | 2019-08-11 12:21 | NUR ---
team meeting recommendation: cont to try to wean off oxygen. 150 ft with fww, no device 50 ft. working on steps with out hand rail. sternal precaution. dc 08/19/2019, initial hh ( pt, ot, nursing ) then when cleared move to cardiac outpt with dr suzy mullins.
--- NOTE | 2019-08-11 19:34 | NUR ---
ASSUMED CARE OF PT AT 0700. PT IS A&OX4 AND VITAL SIGNS ARE STABLE. PT DENIES PAIN AND PARTICIPATED IN SCHEDULED THERAPIES. ACCU CHECKS ACHS AND MANAGED WITH INSULIN. O2 VIA NC AT 1-2L, OCCASSIONAL DYSPNEA, SCHEDULED BREATHING TX, O2 SATS MAINTAINED. FALL PRECAUTIONS IN PLACE AND NURSING WILL CONTINUE TO MONITOR.
[2019-08-11 19:46] VITALS: BP 116/63
--- NOTE | 2019-08-12 00:07 | NUR ---
PT ASSESSMENT COMPLETED AND VSS. MEDS GIVEN ORDERED AND WELL TOLERATED. FALL PRECAUTIONS IN PLACE. UP TO THE BATHROOM ASST/GAIT/WALKER/WOUND VAC/. VOIDING MODERATE AMOUNT OF YELLOW URINE. WOUND VAC DRESSING IN PLACE AND RUNNING WNL. SUPPORTIVE FAMILY AT BEDSIDE. CONTACTED RADIO DISPATCHER REGARDING CONSTIPATION AND PAIN. PRN PAIN MEDICATION WORKING WELL. 0 BM DURING SHIFT. STERNAL PRECAUTIONS FOLLOWED. PT DID HAVE A LITTLE TROUBLE SWALLOWING PILLS THIS EVENING. HE STATED THAT HE HAS HAD A LITTLE TROUBLE SINCE SURGERY. WILL INFORM DAY RN. SLEEPING WELL AT THIS TIME. WILL CONTINUE TO MONITOR FREQUENTLY.
[2019-08-12 05:51] VITALS: BP 112/58
[2019-08-12 08:15] VITALS: BP 124/69
--- NOTE | 2019-08-12 17:01 | NUR ---
BS 64. PT SUPPOSE TO HAVE 12UNITS OF LANTUS AND 10UNITS OF LISPRO. GAVE PT DINNER TRAY. NOTIFIED DR. CLARK. RECEIVED ORDER TO HOLD ALL INSULIN NOW. WILL CONTINUE TO MONITOR.
--- NOTE | 2019-08-12 18:07 | NUR ---
Patient participated in community reintegration on 08/12/19 with OT. Refer to documentation by OT.
--- NOTE | 2019-08-12 19:30 | NUR ---
ASSUMED CARE OF PT AT 0700. REPORTS SLEPT GOOD. OT CAME AND WORKED WITH PT THIS AM. PT IS A&OX4 ABLE TO VOICE HIS NEEDS. VITAL SIGNS ARE STABLE ON RA. SAT 94% ON RA. C/O PAIN ON STERMUM. DRESSING INTACT AND WOUND VAC PATENT. HYDROCODONE GIVEN. PT PARTICIPATED IN SCHEDUELD THERAPIES. ACCU CHECKS ACHS AND MANAGED WITH INSULIN. FAMILY IN ROOM THIS EVENING.ST WORKED WITH PT THIS AM FOR SWALLOWING. PT IS ON MECH SOFT TO HELP WITH CHEWING. ST SUGGESTS TO TAKE MED ONE AT THE TIME. PT UP WITH A WALKER. PT CALLS APPROPRIATELY FOR ASSISTANCE. FALL PRECAUTIONS IN PLACE GAVE REPORT TO NIGHT NURSE TO CONTINUE TO MONITOR.
[2019-08-12 20:00] VITALS: BP 137/76
--- NOTE | 2019-08-13 03:30 | NUR ---
STERNAL PAIN WHICH HE FEELS IS MADE WORSE BY WOUND VAC. APPRECIATES PRN BREATHING TREATMENT AND HYDROCODONE, IS SITTING AT EDGE OF BED. STAYING OVERNIGHT
[2019-08-13 08:00] VITALS: BP 108/62
[2019-08-13 20:00] VITALS: BP 124/73
--- NOTE | 2019-08-13 20:36 | NUR ---
PATIENT ALERT AND ORIENTED WITH SPOUSE AT BEDSIDE ALL DAY. PER DR MERLOS, WOUND VAC REMOVED AND [place] DRESSING APPLIED. PATIENT UP TO BATHROOM WITH SBA.
--- NOTE | 2019-08-14 04:34 | NUR ---
ASSUMED PT CARE AROUND 1914. AXOX4. SIG OTHER AT BEDSIDE. MIDLINE DRESSING C/D/I. MEDS GIVEN PER MD ORDER. NO S/S ACUTE DISTRESS NOTED OR REPORTED AT THIS TIME. WILL CONT TO MONITOR FOR ANY CHANGES IN CONDITION.
[2019-08-14 06:16] VITALS: BP 124/72
--- NOTE | 2019-08-14 17:57 | NUR ---
ASSUMED CARE OF PT AT 0700. REPORTS SLEPT GOOD. PT IS A&OX4 ABLE TO VOICE HIS NEEDS. VITAL SIGNS ARE STABLE ON RA. SAT 94% ON RA. WOUND VAC REMOVED YESTERDAY. DRESSING ON STERMUM C/D/I. ABD INCISION DRESSING C/D/I. DENIES PT PARTICIPATED IN SCHEDUELD THERAPIES. OT GAVE PT SHOWER THIS AM. ACCU CHECKS ACHS AND MANAGED WITH INSULIN. MORNING MEDS GIVEN TAKE MED ONE AT THE TIME. ON COUPLE B/P MEDS TOLERATED WELL, B/P STABLE. PT UP WITH A WALKER. PT CALLS APPROPRIATELY FOR ASSISTANCE. OOFFERED SUPPORTIVE CARE. ENCOURAGED PT TO VOICE HIS NEEDS. REASSESSMENT PER CHART. LAST BM WAS YESTERDAY. EDEMA BILATERAL FEET. ENCOURAGED PT TO ELEVATE THEM UP MUCH HE CAN. CONTINUE TO BE ON LASIX IV BID. IV ON LEFT AC PATENT. FALL PRECAUTIONS IN PLACE GAVE REPORT TO NIGHT NURSE TO CONTINUE TO MONITOR.
[2019-08-14 19:41] VITALS: BP 141/78
--- NOTE | 2019-08-15 04:56 | NUR ---
UP TO TOILET WITH ASSIST, 8 UNITS INSULIN AT , [place] BANDAID COVERING MIDLINE CHEST INCISION, LAC PATENT FOR IV LASIX.
[2019-08-15 09:20] VITALS: BP 134/65
--- NOTE | 2019-08-15 09:50 | NUR ---
PATIENT CARE ASSUMED AT 0700. PATIENT WAS UP AND SITTING BY THE EDGE OF BED. A&OX3-4 ABLE TO MAKE NEEDS KNOWN. PATIENT HAD BREAKFAST, CONSUMED 100%, TOOK ALL MORNING MEDICATION WHOLE IN APPLE SOURCE, WELL TOLERATED. INSULIN GIVEN PER ORDER, NO SIGN AND SYMPTOMS OF HYPO/HYPERDIABETIC NOTED AT THIS TIME. DRESSING INTACT TO STERNUM, AND UPPER ABD, NO DRAINAGE NOTED. LCTA, RESP EVEN, UNLABORED, NO SOA/CYANOSIS NOTED. BS+X4, ABD SOFT, NON-TENDER TO TOUCH. PATIENT DENIES HAVING PHYSICAL PAIN AT THIS TIME. CALL LIGHT REACH, WILL MONITOR FOR SAFETY.
[2019-08-15 19:31] VITALS: BP 112/52
--- NOTE | 2019-08-16 04:37 | NUR ---
SITTING AT EDGE OF BED BRIEFLY AFTER WALKING TO TOILET WITH STANDBY ASSSIST. VOIDING LARGE AMOUNTS, LAC SALINE LOCK PATENT FOR BID LASIX. DRESSINGS CLEAN, DRY, AND INTACT. BREATHING TREATMENT PER REQUEST, LOOSE COUGH
[2019-08-16 09:25] VITALS: BP 122/48
[2019-08-16 19:35] VITALS: BP 132/71
--- NOTE | 2019-08-16 19:42 | NUR ---
ASSUMED CARE AT 0700, PT A&O X 4, NO ACUTE DISTRESS DURING SHIFT. VSS O2 ON RA. PT DENIED ANY PAIN OR DISCOMFORT. IV TO LFA,, RECEIVING IV LASIX DAILY. TOLERATES MEDS IN APPLESAUCE, BG ACHS. CONTINENT OF B&B, FAMILY AT BEDSIDE. SITTING IN BED, CALL LIGHT WITHIN REACH, WILL CONTINUE TO MONITOR PER POC.
--- NOTE | 2019-08-17 02:17 | NUR ---
ASSESSED AT START OF SHIFT. NO C/O OF PAIN, N, V. BLOODSUGAR CHECKED AND INSULIN GIVEN FOR COVERAGE. PT UP TO THE BATHROOM SBA. FAMILY BY BEDSIDE. NO SIGNS OF DISTRESS. CALL LIGHT IN REACH AND FALL PREC IN PLACE WILL CONT WITH POC TILL EOS.
--- NOTE | 2019-08-17 06:41 | HC ---
[facility] [place] [address] CONSULTATION Name: FERNANDO TOLEDO Room #: 510-P [facility] IN M.R.#: [id number] Admission: 08/09/19 Attend Phys: Cody Roque MD Discharge: Date of : 60 Report #: [id number] THIS REPORT FOR: cc: Indira Tejeda MD, Aimee B. MD Deutch,Jitendra Kruger. PhD ~ CC: Indira Roque DATE OF SERVICE: 08/15/2019 BEHAVIORAL STATUS EXAM AGE: 58 ATTENDING PHYSICIAN: Cody Roque MD [employer]ATION CREW MEMBER: Jitendra Jimenez, PhD CLINICAL PRESENTATION: The patient is a 58-year-old male admitted to the [facility] rehabilitation unit for comprehensive inpatient rehabilitation program. He was initially admitted to the hospital on 07/27/2019 for chest pain. He underwent coronary artery bypass grafting x 5 for severe coronary artery disease. The patient had a slow postoperative recovery. His assessment on admission to the rehab unit is medical complexity with generalized debilitation, coronary artery bypass grafting x 5, acute respiratory failure with pleural effusion, status post thoracentesis, lower extremity edema with diuresis, poorly controlled type 2 diabetes mellitus, hypertension, hyperlipidemia, asthma and acute renal insufficiency, superimposed on chronic kidney disease. A complete description of medical condition, history and medication can be found in his medical record. Neuropsychological consultation was requested to provide assistance in the assessment of cognitive and emotional status and to provide recommendations and services. Prior to this most recent heart attack, he was living independently with his in their home. 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 He has 3 children with one child living in the home. There is no prior history of treatment for depression or anxiety. TECHNIQUES UTILIZED: Clinical interview, review of medical records, staff consultation and behavioral observation, mini mental status exam 2 standard version and clock drawing. EXAMINATION FINDINGS: The patient was alert and cooperative with the assessment. He accurately described events surrounding his admission. There is [address] [address] CONSULTATION Name: FERNANDO TOLEDO Room #: 510-P [facility] IN ..#: [id number] Admission: 08/09/19 Attend Phys: Cody Roque MD Discharge: Date of : 60 Report #: [id number] no evidence of aphasia. His thoughts are logical and goal oriented. There is no evidence of thought disorder. He does not report auditory or visual hallucinations at this time. Visual hallucinations are described prior to his transfer to the rehabilitation unit and likely associated with medication and recovery from his bypass procedure. He reports symptoms to include difficulty with sleep. He has had a work schedule in which he was working during the night and sleeping during the day and that has been disrupted since his bypass procedure and hospitalization. Appetite is reduced and energy level poor. He does not report subjective anxiety or depression. The patient also does not indicate having difficulty with memory, concentration or word finding. His performance on the MMSE 2 brief version is extremely low with a raw score of 11 of 16, which is a T score of 17. He was 3/3 for initial registration, 3/5 for orientation to time, 5/[address] and 0/3 for immediate recall of 3 items after a brief time delay and distraction. Performance improved on the MMSE 2 standard version to a raw score of 24 of 30, which is a T score of 35 and percentile rank of 7. He was 4/5 for serial sevens, 2/2 for naming, 1/1 for repetition, 3/3 for auditory comprehension. He could read and follow a single command, write a sentence and copy a simple geometric design. Clock drawings within normal limits. The patient is presenting with deficits in cognition. Primarily, they are associated with orientation to time and immediate recall. Decreased insight into variability in cognition is also suggested. 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 RECOMMENDATIONS: The patient may benefit from speech therapy to assist with compensatory strategies for memory and concentration. Additionally, an outpatient assessment of cognition may be helpful prior to his return to driving and maintaining his work schedule. Family interview will also be of benefit to clarify cognitive/behavioral changes that are observed by his . Thank you very much for allowing me to provide the consultation on this patient. <ELECTRONICALLY SIGNED> By: Jitendra Jimenez, PhD 08/17/19 [id number] Jitendra Jimenez, PhD /nt
[2019-08-17 08:00] VITALS: BP 135/71
--- NOTE | 2019-08-17 19:28 | NUR ---
ASSUMED CARE AT 0700, PT A&O X 4, NO ACUTE DISTRESS NOTED. VSS O2 ON RA. PT DENIES ANY PAIN OR DISCOMFORT, STERNAL PRECAUTIONS CONTINUED. NO IV ACCESS. TOLERATED THERAPY AND ATE MEALS IN DINING ROOM. PT CONTINENT OF B&B. LAST BM 08/16/19. BED IN LOWEST POSITION, CALL LIGHT WITHIN REACH, WILL CONTINUE TO MONITOR PER POC.
[2019-08-17 19:49] VITALS: BP 128/69
--- NOTE | 2019-08-18 04:23 | NUR ---
CALLS APPROPRIATELY FOR SBA TO TOILET. SITTING AT EDGE OF BED FOR 30 MINUTES AT A TIME, RESPIRATORY TREATMENT AT 0300. HOPING TO GO HOME IN THE NEXT FEW DAYS
[2019-08-18 05:58] LABS: ABSOLUTE NEUTROPHILS 5.1 thou/uL (1.4-8.2); BASOPHILS 1.1 % (0.0-2.0); EOSINOPHILS 4.3 % (0.0-3.0); HEMATOCRIT 32.8 % (42.0-52.0); HEMOGLOBIN 10.8 gm/dL (14.0-18.0); LYMPHOCYTES 13.5 % (24.0-44.0); MCH 26.8 pg (26.0-34.0); MCHC 32.8 g/dL (28.0-37.0); MCV 81.6 fL (80.0-100.0); MONOCYTES 8.9 % (1.0-8.0); PLATELET COUNT 350 thou/uL (150-400); POLYS 72.2 % (36.0-66.0); RBC 4.02 mil/uL (4.50-6.00); RDW 14.7 % (10.5-14.5); WBC 7.1 thou/uL (4.0-11.0)
[2019-08-18 06:06] LABS: CALCIUM 8.4 mg/dL (8.5-10.1); CREATININE 1.7 mg/dL (0.7-1.3); MAGNESIUM 1.9 mg/dL (1.8-2.4); POTASSIUM 4.3 mmol/L (3.5-5.1)
[2019-08-18 08:00] VITALS: BP 115/60
[2019-08-18 08:39] VITALS: BP 115/60
--- NOTE | 2019-08-18 09:47 | NUR ---
spoke with pt he " any home health is fine, [facility], [facility], or [facility]"./pt
--- NOTE | 2019-08-18 10:44 | NUR ---
DISCHARGE PLANNING. ANTICIPATED DISCHARGE PLANNED FOR THIS EVENING. HOME HEALTH RECOMMENDED AT DISCHARGE. PATIENT REFERRAL FAXED TO [facility]. AWAITING INTAKE RESPONSE. FOLLOWING.
[2019-08-18 10:53] VITALS: BP 115/60
--- NOTE | 2019-08-18 12:00 | NUR ---
ASSUME PT CARE AT 0700. REPORTS SLEPT GOOD LAST NIGHT. VSS ON RA. MORNING MEDS GIVEN. HELD NORVASC ONLY FOR B/P LESS THAN 120. REASSESSMENT PER CHART. BS 138 THIS AM. INSULIN GIVEN ORDERED. SEE [employer]. PT REQUESTS TO GO HOME TODAY INSTEAD OF TOMORROW. NOTIFIED TEAM REHAB AND EVERYONE OK FOR PT TO GO HOME TODAY. NOTIFIED LILIBETH TO WORK ON DISCHARGE MEDS. WOUND DRESSINGS CHANGE. STENURM SCARS HEALING WELL, ADHESIVE SURGICAL DRESSING APPLIED. ABD INCISIONS CLEANSED AND REAPPLIED [employer] BORDER. LEFT ANKLE INCISION STILL SEEPING. CLEANSED APPLIED GUAZE AND TEGADERM DRESSING. NOTIFIED [employer] TO PUT IN DRESSING INSTRUCTION PRIOR DISCHARGE. OFFERED SUPPORTIVE CARE. PT IS ON MOD. I WITH OR WITHOUT WALKER IN ROOM. ENCOURAGED PT TO CALL FOR HELP NEEDS. WILL CONTINUE TO MONITOR. FAMILY WILL PICK PT UP AROUND 3PM TODAY.
[2019-08-18] MEDS ORDERED: CLOPIDOGREL75 MG PO (13:47)
[2019-08-18] MEDS ORDERED: MIRALAX17 GM PO (13:47)
[2019-08-18] MEDS ORDERED: COLACE100 MG PO (13:47)
[2019-08-18] MEDS ORDERED: LIPITOR80 MG PO (13:47)
[2019-08-18] MEDS ORDERED: PROTONIX 20 MG20 M1 PO (13:47)
[2019-08-18] MEDS ORDERED: LOSARTAN POTAS100 MG PO (13:47)
[2019-08-18] MEDS ORDERED: PACERONE 200 M200 M1 PO (13:47)
[2019-08-18] MEDS ORDERED: METOPROLOL SUCC25 M1 PO (13:47)
[2019-08-18] MEDS ORDERED: LANTUS SUBQ (13:47)
[2019-08-18] MEDS ORDERED: LANTUS100 UNIT/M SUBQ (13:47)
[2019-08-18] MEDS ORDERED: LASIX 40 MG TAB40 M2 PO (13:47)
--- NOTE | 2019-08-18 15:13 | H ---
[facility] [place] [address] HISTORY AND PHYSICAL Name: FERNANDO TOLEDO Room #: 510-P [facility] IN M.R.#: [id number] Admission: 08/09/19 Attend Phys: Cody Roque MD Discharge: Date of : 60 Report #: [id number] THIS REPORT FOR: //name// CC: Indira Roque DATE OF SERVICE: 08/09/2019 HISTORY AND PHYSICAL AND POST-ADMISSION PHYSICIAN EVALUATION HISTORY OF PRESENT ILLNESS: The patient is a 58-year-old male who was originally admitted to [facility] on 07/27/2019 for chest pain. He underwent coronary artery bypass grafting x 5 on 07/31/2019 for severe coronary artery disease. He had a slow postoperative recovery requiring up to 6 liters nasal prong O2 and was found to have acute respiratory failure with right pleural effusion. He underwent thoracentesis with 500 mL removed on 08/03/2019. He had some acute renal insufficiency superimposed on chronic kidney disease. He has poorly controlled diabetes mellitus type 2. He was followed by multiple family consultant physicians, was felt to be medically stabilized, and has been admitted now for acute in-hospital inpatient rehabilitation. He has had some fluid overload and has been diuresed as well. PAST MEDICAL HISTORY: His prior medical history includes diabetes, hypertension, and heart disease. PAST SURGICAL HISTORY: I and D of perirectal abscesses in 2003. FAMILY HISTORY: Diabetes, hypertension, and renal disease. HABITS: No history of tobacco or alcohol abuse. MEDICATIONS: Please see the full medication listing. ALLERGIES: No known drug allergies. 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 REVIEW OF SYSTEMS: No current complaints of chest pain, shortness of breath, abdominal discomfort. No complaints of headache, visual issues or skin issues. Complains of some generalized overall weakness. No focal extremity pain complaints. He does have some lower extremity swelling that he notes. Some incisional pain as expected of his sternum. PHYSICAL EXAMINATION: [facility] [address] [place] [address] HISTORY AND PHYSICAL Name: PARISFERNANDO Oseguera Room #: 510-P [facility] IN ..#: [id number] Admission: 08/09/19 Attend Phys: Cody Roque MD Discharge: Date of : 60 Report #: [id number] GENERAL: He is a pleasant 58-year-old overweight male in no obvious distress. VITAL SIGNS: Temperature 98, pulse 77, respirations 18, and blood pressure 124/57. He is alert and oriented. HEENT: Appeared to be benign. He has got nasal prong O2 in place. NEUROLOGIC: Facies are symmetric. He is on 2 liters. CHEST: His sternal incision is dressed with the vacuum dressing in place. Chest sounded clear to auscultation, maybe some decreased breath sounds at the bases. CARDIOVASCULAR: Sounded regular rate and rhythm. ABDOMEN: Obese, bowel sounds positive, nontender. GENITOURINARY AND RECTAL: Deferred. EXTREMITIES: He has functional range of motion of both upper extremities with strength of grade 4-/5. DTRs are trace to 1. Lower extremities: He does have 1-2+ distal lower extremity edema. He has some incisional areas of that left lower extremity. He does have some scattered ecchymoses. No focal calf swelling. Strength is grade 3+ to 4-/5. DTRs are trace to 1. He does need assistance with transfers and short distance ambulation. ASSESSMENT: A 58-year-old male with the following problem list: 1. Medical complexity with generalized debilitation. 2. Coronary artery bypass grafting x 5 on 07/31/2019. 3. Acute respiratory failure with pleural effusion, status post thoracentesis, 08/03/2019. 4. Lower extremity edema with diuresis. 5. Poorly controlled type 2 diabetes mellitus. 6. Hypertension. 7. Hyperlipidemia. 8. Asthma. 9. Acute renal insufficiency superimposed on chronic kidney disease. PLAN: The patient has been admitted for acute in-hospital inpatient rehabilitation. From a postadmission physician evaluation perspective, there are no relevant changes since the preadmission screening. Please see the above review of prior and current medical and functional conditions and comorbidities. Please see the patient's previous and current functional status. As far as risk of complications, the patient has multiple medical comorbidities as noted above. Initial plan of care involves the interdisciplinary acute inpatient rehabilitation program. Measurable functional goals would be for the patient to become modified independent with transfers, mobility, ADLs, so that he can hopefully return back to his prior living situation. Prognosis is reasonably good with estimated length of stay probably at least 5-10 days pending progress. Potential barriers would be the multiple medical comorbidities and decreased functional status. The patient meets diagnostic criteria for an acute in-hospital inpatient rehabilitation stay. He meets the medical necessity criteria. We will have the [facility] [address] [place] [address] HISTORY AND PHYSICAL Name: FERNANDO TOLEDO Room #: 510-P ADM IN M.R.#: [id number] Admission: 08/09/19 Attend Phys: Cody Roque MD Discharge: Date of : 60 Report #: [id number] consult physicians continue to follow. He does have appropriate discharge goals back to the home setting. <ELECTRONICALLY SIGNED> By: Cody Roque MD 08/18/19 1513 0932 1040 Cody Roque MD /nt
--- NOTE | 2019-08-18 15:13 | PLAN ---
[facility] [place] [address] REHAB UNIT PLAN OF CARE Name: FERNANDO TOLEDO Room #: 510-P ADM IN M.R.#: [id number] Admission: 08/09/19 Attend Phys: Cody Roque MD Discharge: Date of : 60 Report #: [id number] THIS REPORT FOR: //name// CC: Indira Roque DATE OF SERVICE: 08/12/2019 PROGRESS NOTE/OVERALL PLAN OF CARE SUBJECTIVE: The patient is seen back today in followup. He is in no distress. Last recorded temperature 97.8, pulse 76, respirations 18, blood pressure 112/58. The patient is alert. He has the sternal dressing in place with vacuum attachment. He is on 1 liter nasal cannula. He is working in therapies with transfer standby assistance, gait 90 feet contact guard without a device. Working on basic transfers within his sternal precautions. Lower body dressing is supervision. Occupational therapy was somewhat concerned regarding his swallowing, which may be positional with the dressings that he has over his chest and right anterior neck. We will ask speech therapy to do a swallow evaluation at bedside. ASSESSMENT: 1. Medical complexity with generalized debilitation. 2. Coronary artery bypass grafting x 5. 3. Acute respiratory failure, resolved. 4. Pleural effusion, status post thoracentesis. 5. Poorly controlled type 2 diabetes mellitus. 6. Hypertension. 7. Hyperlipidemia. 8. Asthma. 9. Acute renal insufficiency superimposed on chronic kidney disease. PLAN: The overall plan of care is based on the preadmission screen, post-admission physician evaluation and information garnered from therapy assessments. 1. Estimated length of stay is probably 1 week. Plan is for him to go next Saturday on 08/19/2019 to home. 2. Medical prognosis is good. 3. Anticipated interventions includes the interdisciplinary acute inpatient rehabilitation program. 4. Anticipated functional outcomes would be for him to be modified independent with transfers, mobility and ADLs and also to improve as far as swallowing, so that he can return back to the home setting. 5. Discharge destination would be back home with family. He does live with his . 6. Expected therapy by discipline includes PT, OT and speech 1 hour per day each five days a week throughout the duration of the acute inpatient [address] [address] REHAB UNIT PLAN OF CARE Name: FERNANDO TOLEDO Room #: 510-P [facility] IN [facility]#: [id number] Admission: 08/09/19 Attend Phys: Cody Roque MD Discharge: Date of : 60 Report #: [id number] rehabilitation stay. We may be able to taper speech depending upon what they find. <ELECTRONICALLY SIGNED> By: Cody Roque MD 08/18/19 1513 0908 1354 Cody Roque MD /PMT
== END 2019-08-18 16:10 | disposition home health service (06) | DRG 947 ==
LOC: ENTRNSPT 08-18 15:59
PROVIDERS: Nurse Practitioner; ADMIT Physical Medicine & Rehabilitation
DX: R53.81 Other malaise (principal); J96.00 Acute respiratory failure, unspecified whether with hypoxia or hypercapnia; J90 Pleural effusion, not elsewhere classified; N17.9 Acute kidney failure, unspecified; E78.5 Hyperlipidemia, unspecified; J45.909 Unspecified asthma, uncomplicated; I25.10 Atherosclerotic heart disease of native coronary artery without angina pectoris; I25.2 Old myocardial infarction; I12.9 Hypertensive chronic kidney disease with stage 1 through stage 4 chronic kidney disease, or unspecified chronic kidney disease; N18.9 Chronic kidney disease, unspecified; E11.22 Type 2 diabetes mellitus with diabetic chronic kidney disease; Z95.5 Presence of coronary angioplasty implant and graft; Z95.1 Presence of aortocoronary bypass graft
CPT/HCPCS: 10112

== ENCOUNTER 2020-03-19 12:15 | Inpatient (IN) | payer OTHER ==
[~2020-03-19] VITALS: Ht 162.6 cm; Wt 86.2 kg
--- NOTE | ~2020-03-19 | HC ---
[facility] [place] [address] CONSULTATION Name: FERNANDO TOLEDO Room #: 355-P ADM IN M.R.#: [id number] Admission: 03/19/20 Attend Phys: Kristen Rangel MD Discharge: Date of : 60 Report #: [id number] THIS REPORT FOR: cc: Indira Tejeda MD, Aimee B. MD Al-Absi, Ahmed I. MD ~ CC: Indira Restrepo REASON FOR CONSULTATION: Elevated creatinine. REASON FOR THE PRESENTATION: Chest pain. HISTORY OF PRESENT ILLNESS: This is a 59-year-old with past medical history of diabetes mellitus and hypertension. He is also known to have major coronary artery disease. He presented with exertional chest pain and dyspnea on exertion and was admitted for further evaluation and management. The patient's creatinine on presentation was 1.6 and has gone down to 1.5. Back in July of this year, the patient had an acute kidney injury with a creatinine peaking around 2.3. There is a need for the patient to have cardiac catheterization mandating Nephrology consultation. I was consulted to manage his acute kidney injury, potential contrast-induced nephropathy, after the cardiac catheterization. He was here as stated above in July of this year and had an acute kidney injury after his CABG procedure. PAST MEDICAL HISTORY: 1. Diabetes mellitus, out of control. 2. Bilateral diabetic retinopathy post laser surgery. 3. Hyperlipidemia. 4. Coronary artery disease. 5. Hypertension. 6. Asthma. ALLERGIES: None. FAMILY HISTORY: Coronary artery disease. SOCIAL HISTORY: , 3 children. No drug or alcohol abuse. REVIEW OF SYSTEMS: GENERAL: No fever or chills. CARDIOVASCULAR: Significant for chest pain and dyspnea on exertion. PULMONARY: No cough or hemoptysis. GASTROINTESTINAL: No nausea or vomiting. GENITOURINARY: No frequency, no urgency. MUSCULOSKELETAL: No back pain, no morning stiffness. [facility] [address] [place] [address] CONSULTATION Name: FERNANDO TOLEDO Room #: 355-P [facility]#: [id number] Admission: 03/19/20 Attend Phys: Kristen Rangel MD Discharge: Date of : 60 Report #: [id number] NEUROLOGICAL: No headache, no dizziness. MEDICATIONS: 1. Plavix. 2. Amiodarone. 3. Atorvastatin. 4. Isosorbide mononitrate. 5. Metoprolol. 6. Aspirin. 7. Furosemide. 8. Losartan. PHYSICAL EXAMINATION: GENERAL: He is alert, oriented, in no apparent distress. VITAL SIGNS: Blood pressure is 150/80. HEAD AND NECK: No jugular venous distention. CHEST: No crackles. CARDIOVASCULAR: No rub detected. ABDOMEN: Soft, nontender, no hepatosplenomegaly. LOWER EXTREMITIES: No edema. NEUROLOGIC: No neurological deficits. SKIN: No rash or ulcerations. LABORATORY DATA: White blood cell count is 7.3, hemoglobin is 14, platelets 190. Sodium is 136, potassium is 4.1, BUN is 29, creatinine is 1.5. ASSESSMENT, IMPRESSION AND PLAN: 1. Chronic kidney disease, at baseline. 2. Diabetes mellitus, out of control. 3. Coronary artery disease. 4. Hypertension. 5. Hyperlipidemia. 6. He is stable from the renal perspective, his creatinine seems to be at baseline. 7. Since he is going for the cardiac catheterizations, I will stop his losartan. 8. Monitor renal function. 9. We will continue to follow. By: [phone] Jabier Patino MD /nt
[~2020-03-19 12:15] MED LIST changes: +COLACE100 MG PO; +FUROSEMIDE20 MG/2 ML IV PUSH; +LANTUS100 UNIT/M SUBQ; +LASIX 40 MG TAB40 M2 PO; +MIRALAX17 GM PO; +PROTONIX 20 MG20 M1 PO
[2020-03-19 12:19] VITALS: BP 165/100
[2020-03-19 12:48] LABS: ABSOLUTE NEUTROPHILS 8.4 thou/uL (1.4-8.2); BASOPHILS 0.7 % (0.0-2.0); EOSINOPHILS 2.4 % (0.0-3.0); HEMATOCRIT 44.9 % (42.0-52.0); HEMOGLOBIN 15.4 gm/dL (14.0-18.0); LYMPHOCYTES 7.9 % (24.0-44.0); MCH 27.9 pg (26.0-34.0); MCHC 34.2 g/dL (28.0-37.0); MCV 81.7 fL (80.0-100.0); MONOCYTES 5.6 % (1.0-8.0); PLATELET COUNT 208 thou/uL (150-400); POLYS 83.4 % (36.0-66.0); RDW 15.9 % (10.5-14.5); WBC 10.1 thou/uL (4.0-11.0)
[2020-03-19 12:53] LABS: CALCIUM 8.7 mg/dL (8.5-10.1); CREATININE 1.3 mg/dL (0.7-1.3); POTASSIUM 4.4 mmol/L (3.5-5.1)
[2020-03-19 13:02] LABS: TROPONIN-I 0.11 ng/mL (<0.06)
[2020-03-19 15:48] VITALS: BP 160/79
[2020-03-19 16:07] VITALS: BP 160/79
[2020-03-19 16:55] LABS: PROTIME 10.4 Seconds (9.3-11.4)
[2020-03-19 17:03] VITALS: BP 123/79
--- NOTE | 2020-03-19 18:07 | NUR ---
ASSUMED CARE APPROX 1620. PT ADMITTED FROM ER TO 3W. PT ALERT AND ORIENTED X4. ASSESSMENT CHARTED AND VSS. PT DENIES CHEST PAIN. PT DENIES ACUTE PAIN. ADMISSION COMPLETED. SR ON TELE. ON ROOM AIR W/O DISTRESS NOTED. PT COVID R/O. COVID ANTIGEN NEGATIVE AND PCR RESULTS STILL PENDING. DR. COLON NOTIFIED TO RESUME HOME MEDS. PT RESTING COMFORTABLY IN BED. WILL CONTINUE TO MONITOR.
[2020-03-19 19:59] VITALS: BP 131/72
[2020-03-19 23:47] VITALS: BP 157/79
[2020-03-20 02:51] LABS: HEMATOCRIT 46.5 % (42.0-52.0); HEMOGLOBIN 15.4 gm/dL (14.0-18.0); MCH 27.4 pg (26.0-34.0); RBC 5.6 mil/uL (4.50-6.00); RDW 16.4 % (10.5-14.5); WBC 8.1 thou/uL (4.0-11.0)
[2020-03-20 02:58] LABS: CALCIUM 8.5 mg/dL (8.5-10.1); CREATININE 1.6 mg/dL (0.7-1.3); POTASSIUM 3.8 mmol/L (3.5-5.1)
[2020-03-20 03:11] VITALS: BP 165/96
--- NOTE | 2020-03-20 07:51 | HC ---
[facility] [place] [address] CONSULTATION Name: FERNANDO TOLEDO Room #: 355-P ADM IN M.R.#: [id number] Admission: 03/19/20 Attend Phys: Kristen Rangel MD Discharge: Date of : 60 Report #: [id number] THIS REPORT FOR: cc: Indira Tejeda MD,Indira Restrepo,Francisco Hammond MD ~ CC: Indira Restrepo DATE OF SERVICE: 03/19/2020 CARDIOLOGY CONSULTATION CHIEF COMPLAINT: Chest pain. HISTORY OF PRESENT ILLNESS: This is a 59-year-old gentleman with a significant history of diabetes mellitus, CAD, SC, PCI and recently CABG, presenting with chest pain. 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 He developed left-sided chest discomfort with ambulation. He had to rest for the symptoms to resolve. He had a few episodes. Earlier today while at home, he had recurrent episodes at least 4 episodes of left-sided chest discomfort. He denies any fever, chills, dyspnea or orthopnea. In the ER, the ECG reveals significant ST-segment depressions in the precordial leads, which is a change from his baseline. Initial troponin is elevated at 0.11. PAST MEDICAL HISTORY: SC, multiple stents to the LAD, 5-vessel CABG in July 2019 with BALBUENA to the LAD, SVG to diagonal, ramus, OM and PDA. Poorly controlled diabetes mellitus, hypertension, hypercholesterolemia, and asthma. ALLERGIES: None. MEDICATIONS: At home include aspirin, Plavix, metoprolol, insulin, losartan, albuterol. SOCIAL HISTORY: Denies tobacco use. FAMILY HISTORY: Negative for premature CAD. REVIEW OF SYSTEMS: A full 10-point review of systems performed. Only the pertinent positives and negatives are described in the HPI. PHYSICAL EXAMINATION: VITAL SIGNS: Blood pressure is 160/80, heart rate is 70 beats per minute. GENERAL APPEARANCE: This is a well-developed, well-nourished male in no acute distress. [facility] [address] [place] [address] CONSULTATION Name: FERNANDO TOLEDO Room #: 355-P [facility] IN M.R.#: [id number] Admission: 03/19/20 Attend Phys: Kristen Rangel MD Discharge: Date of : 60 Report #: [id number] HEENT: Normocephalic, atraumatic. Oral mucosa moist. NECK: Supple. LUNGS: Clear to auscultation. CARDIAC: Regular rate and rhythm, S1, S2 positive. ABDOMEN: Soft, nontender. EXTREMITIES: No cyanosis, 1+ lower pretibial edema. ECG reveals sinus rhythm with ST-segment depressions in the precordial leads. LABORATORY VALUES: Troponin is 0.11. White count is 10.1, hemoglobin 15.4. Creatinine is 1.3. ASSESSMENT AND PLAN: 1. Non-ST elevation myocardial infarction with EKG abnormalities. The patient with a significant cardiac history including stents and most recently a 5-vessel CABG. Given his accelerated symptoms, I discussed with him the risks, benefits and alternatives of cardiac catheterization. He voices understanding and wishes to proceed. 2. Diabetes mellitus, continue on insulin and check hemoglobin A1c. 3. Hypertension, continue on cardiac medications including beta-dominique and ARB medication. 4. Hypercholesterolemia, continue with statin therapy. <ELECTRONICALLY SIGNED> By: Francisco Restrepo MD 03/20/20 0751 [id number] 0026 Francisco Restrepo MD /nt
[2020-03-20 08:00] VITALS: BP 161/90
[2020-03-20 15:46] VITALS: BP 101/63
--- NOTE | 2020-03-20 16:46 | NUR ---
RN HAS ASSUMED PT'S CARE AT 0700AM, PT IS A&OX3, PT'S VS ARE STABLE, PT HAS LIGHT CHEST PAIN AT ONE TIME, PT DOES NOT HAVE SOB AND CHEST PAIN BY THIS TIME, PT'S SALESFORCE CONSULTANT PROCEDURE HAS CHANGED TO TOMORROW, PT IS CONTINUING HEPARIN DRIP AT 11.45 UNITS/KG /HR PER PROTOCOL, LAB PTT WILL CHECK AT 1820PM, PT GETS UP TO BATH ROOM, PT DOES NOT HAVE S/S OG BLEEDING AT THIS TIME, PT'S COVID IS NEGATIVE FROM 03/19/20 TEST , PT'S ISOLATION HAS DC PER ID
--- NOTE | 2020-03-20 18:38 | NUR ---
RN WILL REPORT TO NEXT SHIFT TO KEEP PT NPO AFTER MN FOR [facility] TOMORROW.
[2020-03-20 19:34] VITALS: BP 103/61
--- NOTE | 2020-03-20 21:55 | NUR ---
PT ALERT AND ORIENTED X4. VSS AFEBRILE. HEPARIN TITRATED ORDERED PER PROCTOCOL. NO BLEEDING NOTED. HRR SR ON MONITOR. NO C/O PAIN. NO S/S DISTRESS. INSTRUCTED PT TO BE NPO AFTER MN. WILL CONTINUE TO MONITOR PT FOR CHANGES.
[2020-03-20 23:38] VITALS: BP 151/80
[2020-03-21 04:23] VITALS: BP 161/98
[2020-03-21 08:08] LABS: CALCIUM 8.2 mg/dL (8.5-10.1); CREATININE 1.6 mg/dL (0.7-1.3); POTASSIUM 3.8 mmol/L (3.5-5.1)
--- NOTE | 2020-03-21 08:12 | EKG ---
[facility] [place] [address] ELECTROCARDIOGRAM REPORT Name: FERNANDO TOLEDO Room #: 355-P ADM IN M.R.#: [id number] Admission: 03/19/20 Attend Phys: Kristen Rangel MD Discharge: Date of : 60 Report #: [id number] THIS REPORT FOR: cc: Indira Tejeda MD, Aimee B. MD Santiago, Patrick MD [facility] ~ THIS REPORT FOR: //name// [facility] ED Test Date: 2020-03-19 Test Time: 12:40:02 Pat Name: FERNANDO TOLEDO Department: Room: [facility] Gender: M Motor Setter: KF : 1960 Requested By: Ren Killian Order Number: [id number] MD: Jone Cardona Measurements Intervals [place] Rate: 83 P: 43 TX: 194 QRS: -3 QRSD: 87 T: 149 QT: 366 QTc: 430 Interpretive Statements Sinus rhythm Probable left atrial enlargement Repol abnrm suggests ischemia, anterolateral Compared to ECG 08/04/2019 07:32:41 Early repolarization now present Possible ischemia now present T-wave abnormality no longer present Electronically Signed On 03-21-2020 8:11:50 CDT by Jone Cardona [email or web address] <ELECTRONICALLY SIGNED> By: Jone Cardona MD, FACC 03/21/20 0811 1240 1240 Jone Cardona MD, [facility] /EPI
[2020-03-21 08:19] VITALS: BP 155/77
--- NOTE | 2020-03-21 13:22 | NUR ---
INITIAL ASSESSMENT: SARAH reviewed chart and spoke with nursing. Pt was admitted from home due to NStemi. Pt placed in Enhanced Isolation to r/o COVID-19. Pt's test is negative. Pt is on heparin gtt and will have cardiac cath. Enhanced Isolation precautions discontinued. SARAH spoke with pt via phone. Introduced role of SW. Pt is alert/orientated. Pt reports he lives at home with his family. Prior to admission, pt was independent with ADLs. Pt was on 5N earliert this year following CABG. Pt went home with [facility] at that time. Pt currently does not have health insurance. SARAH informed pt that [employer] will be following up with him to assist with financial application. Pt states he will have cardiac cath tomorrow. Pt's PCP is Dr. Indira Tejeda. Plan is for pt to discharge home when medically stable. SARAH is following to assist as needed with discharge planning.
[2020-03-21 19:20] VITALS: BP 141/79
--- NOTE | 2020-03-21 19:20 | NUR ---
RN HAS ASSUMED PT'S CARE AT 0700AM, PT IS A&OX3, PT 'S PLAN WILL GO TO [facility] TOMORROW , PT IS CONTINUING HEPARIN DRIP AT 13.4 UNITS /KG/HR , PT DOES NOT HASVE SOB AND CHEST PAIN TODAY, PT'S VS ARE STABLE , PT DOES NOT HAVE S/S OF BLEEDING AT THIS TIME.
--- NOTE | 2020-03-21 22:57 | NUR ---
PT PROGRESSING TOWARDS D/C GOALS. HE IS ALERT AND ORIENTED X4. VSS AFEBRILE. HEPARIN INFUSING LFA. NO S/S BLEEDING NOTED. PT NPO AFTER MN FOR POSSIBLE CARDIAC PROCEDURES. DENIED CHEST PAIN. NO SOA. NO S/S DISTRESS.SR ON MONITOR. WILL CONTINUE TO MONITOR PT FOR CHANGES.
[2020-03-22] VITALS (8 sets, daily range): BP systolic 126–160; BP diastolic 72–95
[2020-03-22 04:53] LABS: HEMATOCRIT 42.3 % (42.0-52.0); MCH 27.5 pg (26.0-34.0); MCHC 33.1 g/dL (28.0-37.0); MCV 83.1 fL (80.0-100.0); RBC 5.09 mil/uL (4.50-6.00); RDW 15.7 % (10.5-14.5); WBC 7.3 thou/uL (4.0-11.0)
[2020-03-22 04:58] LABS: CREATININE 1.5 mg/dL (0.7-1.3); POTASSIUM 4.1 mmol/L (3.5-5.1)
--- NOTE | 2020-03-22 07:30 | NUR ---
FIRST DAY RN IS HAVING THE PT, PT HAS MEDICATIONS DUE FOR THE MORNING, RN CONSULTED WITH VINCENT AT [facility]. PT IS TO RECEIVE ALL MORNING MEDICATIONS SCHEDULED THEN HEPARIN DRIP WILL BE PAUSED AT THE TIME OF BANDER FOR THE PT. PT ALSO REQUESTED BREATHING TREATMENT THIS MORNING, RN ASSESSED THE PT, TAUGHT PT PURSED BREATHING WELL TRIPOD POSITIONING TO FACILITATE BREATHING. RN CONSULTED RT [facility] TO PROVIDE PRN BREATHING TX FOR THIS PT.
--- NOTE | 2020-03-22 11:43 | NUR ---
SW reviewed chart and spoke with nursing and attending physician. Enhanced Isolation precautions have been discontinued. Pt to have cardiac cath today around 1200 and will transfer to CCU following procedure. Pt lives at home with family. Plan is for pt to discharge home when medically stable. Pt may need assistance with medications. Pt does not have health insurance. SARAH is following to assist as needed with discharge planning.
--- NOTE | 2020-03-22 18:59 | NUR ---
PT TRANSFERED FROM [facility] 1600 POST CARDIAC CATH WITHOUT STENT, ORRIENTED X4, FROM HOME. 1700 OFF BEDREST. RIGHT GROIN C/D/I, INSTRUCTED TO HOLD PRESSURE WHEN STRAINING, COUGHING,. CARDIAC STONE PROCESSING MACHINE OPERATOR ROUNDED WITH PT WHILE HE WAS ON 3WEST. AB LITTLE WITH BATHROOM PRIVLEDGES. DENIES CHEST PAIN, DENIES SOB. PLANS TO DC IN THE AM PER CARDIOLOGY. ORRIENTED TO ROOM. CALL LIGHT AND PERSONAL ITEMS IN REACH.
[2020-03-23 00:33] VITALS: BP 168/86
--- NOTE | 2020-03-23 03:35 | NUR ---
ASSESSMENTS CHARTED, MEDS CHARTED GIVEN. PATIENT WENT TO INDUSTRIAL RELATIONS COMMISSIONER DURING DAY, DID NOT RECEIVE ANY STENTS DURING PROCEDURE. OFF BEDREST PRIOR TO START OF SHIFT. UP AT LITTLE IN ROOM. DENIED PAIN. FALL PRECAUTIONS IN PLACE DURING SHIFT. PLAN OF CARE IS TO BE DISCHARGED IN THE AM TO HOME.
[2020-03-23 05:40] VITALS: BP 160/82
[2020-03-23 06:43] LABS: ALBUMIN 2.6 g/dL (3.4-5.0); CREATININE 1.6 mg/dL (0.7-1.3); PHOSPHORUS 3.1 mg/dL (2.5-4.9); POTASSIUM 3.9 mmol/L (3.5-5.1)
[2020-03-23 07:40] VITALS: BP 183/87
[2020-03-23] MEDS ORDERED: IMDUR 60 MG TAB60 M1 PO (10:12)
[2020-03-23] MEDS ORDERED: NORVASC10 MG PO (10:12)
--- NOTE | 2020-03-23 11:37 | NUR ---
DISCHARGE NOTE: SW reviewed chart and spoke with nursing and attending physician. Pt had cardiac cath yesterday and transferred to CCU from 3W following procedure. Pt is medically stable for discharge home today pending cardiology clearance. SW met with pt at bedside to discuss discharge plan. Pt states that he uses [facility] for prescription assistance. Pt has a PCP and will follow up after discharge. Pt's family to provide transportation home. No additonal SW needs identified at this time, but is available to assist should needs arise.
[2020-03-23 11:42] VITALS: BP 169/92
[2020-03-23 12:23] VITALS: BP 169/92
--- NOTE | 2020-03-23 13:05 | NUR ---
DISCHARGE AND MEDICATIONS INSTRUCTIONS GIVEN TO APTIENT AND HE VRBALIZED UNDERSTANDING. DISCHARGED HOME.
== END 2020-03-23 13:07 | disposition home or self-care (01) | DRG 281 ==
LOC: ER 12:15 → EROBS 14:32 → 3W 16:12 → 2N 03-22 16:14
PROVIDERS: Hospitalist; Internal Medicine Cardiovascular Disease; Nurse Practitioner; ADMIT Hospitalist; ATTEND Hospitalist
PROC: B211YZZ Fluoroscopy of Multiple Coronary Arteries using Other Contrast (ICD-10-PCS; principal; 2020-03-22)
PROC: B21FYZZ Fluoroscopy of Other Bypass Graft using Other Contrast (ICD-10-PCS; principal; 2020-03-22)
PROC: 4A023N7 Measurement of Cardiac Sampling and Pressure, Left Heart, Percutaneous Approach (ICD-10-PCS; principal; 2020-03-22)
DX: I21.4 Non-ST elevation (NSTEMI) myocardial infarction (principal); N17.9 Acute kidney failure, unspecified; I25.10 Atherosclerotic heart disease of native coronary artery without angina pectoris; J45.909 Unspecified asthma, uncomplicated; E78.5 Hyperlipidemia, unspecified; E78.00 Pure hypercholesterolemia, unspecified; E11.319 Type 2 diabetes mellitus with unspecified diabetic retinopathy without macular edema; N18.2 Chronic kidney disease, stage 2 (mild); I12.9 Hypertensive chronic kidney disease with stage 1 through stage 4 chronic kidney disease, or unspecified chronic kidney disease; E11.22 Type 2 diabetes mellitus with diabetic chronic kidney disease; Z20.828 Contact with and (suspected) exposure to other viral communicable diseases; I25.2 Old myocardial infarction; Z95.5 Presence of coronary angioplasty implant and graft; Z95.1 Presence of aortocoronary bypass graft; Z82.49 Family history of ischemic heart disease and other diseases of the circulatory system; Z79.899 Other long term (current) drug therapy
CPT/HCPCS: 10081; 10879

== ENCOUNTER 2020-06-27 10:43 | Emergency (ER) | payer OTHER ==
[~2020-06-27] VITALS: Ht 162.6 cm; Wt 97.5 kg
[~2020-06-27 10:43] MED LIST changes: +IMDUR 60 MG TAB60 M1 PO; +NORVASC10 MG PO
[2020-06-27 11:39] LABS: ABSOLUTE NEUTROPHILS 4.4 thou/uL (1.4-8.2); BASOPHILS 0.6 % (0.0-2.0); EOSINOPHILS 1.9 % (0.0-3.0); HEMATOCRIT 45.1 % (42.0-52.0); HEMOGLOBIN 14.9 gm/dL (14.0-18.0); LYMPHOCYTES 13.7 % (24.0-44.0); MCH 27.4 pg (26.0-34.0); MCHC 32.9 g/dL (28.0-37.0); MCV 83.4 fL (80.0-100.0); MONOCYTES 7.9 % (1.0-8.0); PLATELET COUNT 198 thou/uL (150-400); POLYS 75.9 % (36.0-66.0); RBC 5.41 mil/uL (4.50-6.00); RDW 13.7 % (10.5-14.5); WBC 5.8 thou/uL (4.0-11.0)
[2020-06-27 11:51] LABS: CALCIUM 9.1 mg/dL (8.5-10.1); CREATININE 1.6 mg/dL (0.7-1.3); POTASSIUM 4.4 mmol/L (3.5-5.1)
[2020-06-27 12:00] LABS: TOTAL BILIRUBIN 0.4 mg/dL (0.2-1.0); TOTAL PROTEIN 6.7 g/dL (6.4-8.2); TROPONIN-I 0.1 ng/mL (<0.06)
[2020-06-27] MEDS ORDERED: TESSALON PERLE100 MG PO (13:17)
[2020-06-27 14:20] VITALS: BP 132/88
--- NOTE | 2020-06-27 16:03 | EKG ---
[facility] [address] [facility] [place] [address] ELECTROCARDIOGRAM REPORT Name: FERNANDO TOLEDO Room #: DEP [facility]#: [id number] Admission: 06/27/20 Attend Phys: Discharge: 06/27/20 Date of : 60 Report #: [id number] [facility] ED Test Date: 2020-06-27 Test Time: 10:55:56 Pat Name: FERNANDO TOLEDO Department: Room: Gender: Front Desk Receptionist: DOMINICK : 1960 Requested By: Ren Killian Order Number: [id number] MD: Jone Cardona Measurements Intervals [place] Rate: 96 P: 42 MI: 184 QRS: 23 QRSD: 84 T: 142 QT: 335 QTc: 424 Interpretive Statements Sinus rhythm Probable left atrial enlargement Anteroseptal infarct, old Repol abnrm suggests ischemia, lateral leads Compared to ECG 03/19/2020 12:40:02 Myocardial infarct finding now present Possible ischemia still present Electronically Signed On 06-27-2020 16:03:43 OLERICULTURE TEACHER by Jone Cardona [email or web address] <ELECTRONICALLY SIGNED> By: Jone Cardona MD, [facility] 06/27/20 1603 1055 1055 Jone Cardona MD, [facility] /EPI
== END 2020-06-27 14:21 | disposition home or self-care (01) ==
LOC: ER 10:43
PROVIDERS: Emergency Medicine
DX: U07.1 COVID-19 (principal); R07.89 Other chest pain; R05 Cough; I25.10 Atherosclerotic heart disease of native coronary artery without angina pectoris; E11.9 Type 2 diabetes mellitus without complications; J45.909 Unspecified asthma, uncomplicated; I10 Essential (primary) hypertension; E78.5 Hyperlipidemia, unspecified; Z95.1 Presence of aortocoronary bypass graft; Z79.4 Long term (current) use of insulin; Z79.01 Long term (current) use of anticoagulants; Z79.899 Other long term (current) drug therapy; Z79.82 Long term (current) use of aspirin

== ENCOUNTER 2021-07-07 08:46 | Inpatient (IN) | payer BC ==
[~2021-07-07] VITALS: Ht 162.6 cm; Wt 93.0 kg
[~2021-07-07 08:46] MED LIST changes: +TESSALON PERLE100 MG PO
[2021-07-07 08:47] VITALS: BP 100/55
--- NOTE | 2021-07-07 09:06 | NUR ---
PT SHOWING NO SIGNS OF RESPIRATORY DISTRESS AT THIS TIME. PT VSS. ON STONE BANKER. 97% RA. PT HAS EDEMA TO LIPS AND TONGUE, HIVES GENERALIZED ON TORSO AND ARMS. PT REPORTS TAKING LEVEMIR THIS AM APPROX 0700, REPORTS SX BEGAN APPROX 0730. PT REPORTS MILD DYSPNEA. AIRWAY PATENT. AT BEDSIDE. EDP AT BEDSIDE.
[2021-07-07 10:46] LABS: ABSOLUTE NEUTROPHILS 6.2 thou/uL (1.4-8.2); BASOPHILS 0.8 % (0.0-2.0); EOSINOPHILS 6.1 % (0.0-3.0); HEMOGLOBIN 15.6 gm/dL (14.0-18.0); LYMPHOCYTES 20.5 % (24.0-44.0); MCH 27.3 pg (26.0-34.0); MCHC 33.1 g/dL (28.0-37.0); MCV 82.5 fL (80.0-100.0); MONOCYTES 4.9 % (1.0-8.0); PLATELET COUNT 284 thou/uL (150-400); POLYS 67.7 % (36.0-66.0); RDW 14.4 % (10.5-14.5); WBC 9.2 thou/uL (4.0-11.0)
[2021-07-07 10:51] LABS: CALCIUM 8.5 mg/dL (8.5-10.1); CREATININE 2.2 mg/dL (0.7-1.3); POTASSIUM 3.9 mmol/L (3.5-5.1)
[2021-07-07 18:17] VITALS: BP 142/80
[2021-07-07 18:31] VITALS: BP 160/89
[2021-07-07 18:45] VITALS: BP 157/92
[2021-07-07 20:15] VITALS: BP 171/108
[2021-07-08 00:24] VITALS: BP 150/91; BP 171/109
[2021-07-08 03:33] LABS: CALCIUM 8.1 mg/dL (8.5-10.1); CREATININE 2.3 mg/dL (0.7-1.3)
[2021-07-08 03:49] LABS: POTASSIUM 5.2 mmol/L (3.5-5.1)
[2021-07-08 04:45] VITALS: BP 172/93
--- NOTE | 2021-07-08 04:53 | NUR ---
RECEIVED PATIENT AT 1900H.ADMISSION HISTORY COMPLETED.ASSESSMENT DONE CHARTED.TRIED TO DO THE MED REC BUT PATIENT COULDNT REMEMBER ALL HIS HOME MEDICATIONS.ASKED PATIENT IF I CAN CALL HIS TO ASK ABOUT IT BUT PER THE PATIENT, HE DOESNT WANT HIS TO BE DISTURBED SHE HAS WORK EARLY IN THE MORNING AND MIGHT ALREADY BEEN SLEEPING.INFORMED HEALTH WORKER ABOUT IT.BLOOD PRESSURE HAS BEEN ON THE HIGH SIDE,INFORMED HEALTH WORKER, SHE TOLD TO RECHECK AT MIDNIGHT.IN THE MORNING BLOOD PRESSURE IS STILL ELEVATED AND POTASSIUM WENT UP FROM 3.9 to 5.2,INFORMED HEALTH WORKER.NO NEW ORDERS.ALL NEEDS ATTENDED.TO CONTINOUSLY MONITOR.
[2021-07-08 08:00] VITALS: BP 171/92
[2021-07-08 12:00] VITALS: BP 161/92
[2021-07-08 16:07] VITALS: BP 164/87
[2021-07-08 17:14] LABS: URINE BILIRUBIN NEGATIVE (Negative); URINE BLOOD TRACE (Negative); URINE CLARITY CLEAR; URINE COLOR YELLOW; URINE GLUCOSE-RANDOM* 3+ (Negative); URINE KETONES NEGATIVE (Negative); URINE LEUKOCYTES-REFLEX NEGATIVE (Negative); URINE NITRITE-REFLEX NEGATIVE (Negative); URINE PROTEIN (DIPSTICK) 3+ (Negative); URINE UROBILINOGEN 0.2 E.U./dl (0.2-1.0)
--- NOTE | 2021-07-08 19:48 | NUR ---
Pt has been A&0x4 and afebrile. SBP has been 170s-160s. Hydralyzine ordered as needed. Straight catheterization was ordered - 1500ml was obtained. Order for Burton was placed - Burton was placed at 1800. Pt stated feeling some relief when Burton was placed. No complaints of pain. No current concerns. Continue to monitor.
[2021-07-08 20:15] VITALS: BP 154/76
--- NOTE | 2021-07-09 03:02 | NUR ---
pt resting quietly in room, vss, assessment as charted, no c/o pain, iv fluids infusing, torres with bloodtinged urine, will con't to monitor per ppoc.
[2021-07-09 03:06] LABS: ABSOLUTE NEUTROPHILS 13.9 thou/uL (1.4-8.2); BASOPHILS 0.1 % (0.0-2.0); EOSINOPHILS 0.1 % (0.0-3.0); HEMATOCRIT 38.7 % (42.0-52.0); LYMPHOCYTES 5.3 % (24.0-44.0); MCH 26.8 pg (26.0-34.0); MCHC 32.3 g/dL (28.0-37.0); MCV 82.9 fL (80.0-100.0); MONOCYTES 4.8 % (1.0-8.0); POLYS 89.7 % (36.0-66.0); RBC 4.67 mil/uL (4.50-6.00); RDW 14.2 % (10.5-14.5); WBC 15.5 thou/uL (4.0-11.0)
[2021-07-09 03:09] LABS: HEMOGLOBIN 12.5 gm/dL (14.0-18.0); PLATELET COUNT 197 thou/uL (150-400)
[2021-07-09 03:16] LABS: ALBUMIN 1.9 g/dL (3.4-5.0); CALCIUM 7.8 mg/dL (8.5-10.1); CREATININE 2.2 mg/dL (0.7-1.3); MAGNESIUM 2.1 mg/dL (1.8-2.4); PHOSPHORUS 3.7 mg/dL (2.5-4.9); TOTAL BILIRUBIN 0.4 mg/dL (0.2-1.0); TOTAL PROTEIN 5.4 g/dL (6.4-8.2)
[2021-07-09 03:17] LABS: POTASSIUM 5.3 mmol/L (3.5-5.1)
[2021-07-09 04:45] VITALS: BP 167/94
[2021-07-09 07:00] VITALS: BP 148/78
[2021-07-09 08:00] VITALS: BP 148/78
[2021-07-09 11:18] VITALS: BP 125/91
--- NOTE | 2021-07-09 19:31 | NUR ---
Pt has been resting in bed. A&0x4, VS stable and afebrile. Nephrology and Urology consults have been called in and they will come see the patient 05/10/22. Information Resource Consultant ordered one time bolus of NS 0.9% Burton in place with blood tinged urine. Continue to monitor.
[2021-07-09 20:15] VITALS: BP 114/65
--- NOTE | 2021-07-10 04:30 | NUR ---
RECEIVED THE PATIENT AT 1900H.PATIENT IS ALERT AND ORIENTED X4.ON ROOM AIR BREATHING SPONTANEOUSLY.WITH RODRIGUEZ CATHETER INTACT.NO COMPLAINTS OF PAIN.NOT IN DISTRESS.ALL NEEDS ATTENDED.TO CONTINOUSLY MONITOR.
[2021-07-10 04:45] VITALS: BP 127/69
[2021-07-10 04:47] LABS: CALCIUM 8.1 mg/dL (8.5-10.1); POTASSIUM 3.9 mmol/L (3.5-5.1)
[2021-07-10 09:47] VITALS: BP 172/91
[2021-07-10 10:38] VITALS: BP 172/91
--- NOTE | 2021-07-10 11:11 | NUR ---
PATIENT ADMITTED FOR ANAPHYLAXIS ANGIOEDEMA. CHART REVIEWED AND DISCUSSED WITH CARE TEAM. CM MET WITH PT THIS DAY. CM ROLE INTRODUCED. PT REPORTS HE LIVES AT HOME WITH HIS AND SON. HE INDICATES HE IS INDEPENDENT WITH ADLS AND MOBILITY. 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 HE REPORTS NO CONCERNS WITH DISCHARGING HOME. HAS NOT USED HH OR THERAPY SERVICES IN THE PAST. NO CM INTERVENTIONS INDICATED AT THIS TIME.
[2021-07-10] MEDS ORDERED: FINASTERIDE5 MG PO (11:49)
[2021-07-10] MEDS ORDERED: FLOMAX0.4 MG PO (11:49)
[2021-07-10 12:26] VITALS: BP 166/91
--- NOTE | 2021-07-10 17:32 | NUR ---
THOMAS DISCHARGE CHANGE RODRIGUEZ TO LEG BAG AND INSTRUCT PT AND SPOUS HOW TO USE AND BRI CARE.
== END 2021-07-10 15:05 | disposition home or self-care (01) | DRG 916 ==
LOC: ER 08:46 → EROBS 14:00 → 2N 14:00
PROVIDERS: Emergency Medicine; Hospitalist; Internal Medicine; ADMIT Hospitalist; ATTEND Hospitalist
DX: T88.6XXA Anaphylactic reaction due to adverse effect of correct drug or medicament properly administered, initial encounter (principal); N17.9 Acute kidney failure, unspecified; N13.1 Hydronephrosis with ureteral stricture, not elsewhere classified; E78.5 Hyperlipidemia, unspecified; J45.909 Unspecified asthma, uncomplicated; I25.10 Atherosclerotic heart disease of native coronary artery without angina pectoris; E11.22 Type 2 diabetes mellitus with diabetic chronic kidney disease; R33.9 Retention of urine, unspecified; E66.9 Obesity, unspecified; T46.4X5A Adverse effect of angiotensin-converting-enzyme inhibitors, initial encounter; I12.9 Hypertensive chronic kidney disease with stage 1 through stage 4 chronic kidney disease, or unspecified chronic kidney disease; E87.5 Hyperkalemia; N18.32 Chronic kidney disease, stage 3b; Z79.82 Long term (current) use of aspirin; Z95.1 Presence of aortocoronary bypass graft; Z68.35 Body mass index [BMI] 35.0-35.9, adult; Z88.8 Allergy status to other drugs, medicaments and biological substances; Z79.899 Other long term (current) drug therapy; Y92.89 Other specified places as the place of occurrence of the external cause
CPT/HCPCS: 10081

== ENCOUNTER 2021-07-14 18:16 | Emergency (ER) | payer BC ==
[~2021-07-14] VITALS: Ht 162.6 cm; Wt 127.0 kg
[~2021-07-14 18:16] MED LIST changes: +FINASTERIDE5 MG PO; +FLOMAX0.4 MG PO
[2021-07-14 18:39] LABS: URINE BILIRUBIN NEGATIVE (Negative); URINE BLOOD 3+ (Negative); URINE CLARITY SL CLOUDY; URINE COLOR YELLOW; URINE GLUCOSE-RANDOM* 3+ (Negative); URINE KETONES NEGATIVE (Negative); URINE LEUKOCYTES-REFLEX NEGATIVE (Negative); URINE NITRITE-REFLEX NEGATIVE (Negative); URINE PROTEIN (DIPSTICK) 3+ (Negative); URINE UROBILINOGEN 0.2 E.U./dl (0.2-1.0)
[2021-07-14 18:49] LABS: BACTERIA-REFLEX 1-9 Few /HPF (None Seen); CASTS None Seen /LPF (None Seen); HYALINE CASTS 0-3 Few /LPF (None Seen); SQUAMOUS 0-3 Few /LPF (0-3); URINE RBC >20 Many /HPF (NONE SEEN); URINE WBC-REFLEX 0-5 Rare /HPF (0-5)
[2021-07-14 18:50] LABS: CRYSTALS None Seen /LPF (None Seen)
[2021-07-14 19:07] LABS: ABSOLUTE NEUTROPHILS 5.4 thou/uL (1.4-8.2); BASOPHILS 0.5 % (0.0-2.0); EOSINOPHILS 7.1 % (0.0-3.0); HEMATOCRIT 39.8 % (42.0-52.0); HEMOGLOBIN 12.9 gm/dL (14.0-18.0); LYMPHOCYTES 12.6 % (24.0-44.0); MCH 26.7 pg (26.0-34.0); MCHC 32.3 g/dL (28.0-37.0); MCV 82.7 fL (80.0-100.0); PLATELET COUNT 187 thou/uL (150-400); POLYS 67.8 % (36.0-66.0); RBC 4.81 mil/uL (4.50-6.00); RDW 14.4 % (10.5-14.5)
[2021-07-14 19:12] LABS: CALCIUM 7.4 mg/dL (8.5-10.1); CREATININE 1.8 mg/dL (0.7-1.3); POTASSIUM 3.9 mmol/L (3.5-5.1)
[2021-07-14 20:24] VITALS: BP 162/78
== END 2021-07-14 20:25 | disposition home or self-care (01) ==
LOC: ER 18:16
PROVIDERS: Emergency Medicine
DX: R31.9 Hematuria, unspecified (principal); E11.9 Type 2 diabetes mellitus without complications; Z79.899 Other long term (current) drug therapy; Z88.8 Allergy status to other drugs, medicaments and biological substances

== ENCOUNTER 2021-07-16 13:14 | Emergency (ER) | payer BC ==
[~2021-07-16] VITALS: Ht 162.6 cm; Wt 108.9 kg
[2021-07-16 14:15] LABS: ABSOLUTE NEUTROPHILS 5.8 thou/uL (1.4-8.2); EOSINOPHILS 5.8 % (0.0-3.0); HEMATOCRIT 39.9 % (42.0-52.0); HEMOGLOBIN 13.2 gm/dL (14.0-18.0); LYMPHOCYTES 13.5 % (24.0-44.0); MCHC 33.1 g/dL (28.0-37.0); MCV 81.4 fL (80.0-100.0); MONOCYTES 7.3 % (1.0-8.0); PLATELET COUNT 223 thou/uL (150-400); POLYS 72.4 % (36.0-66.0); RDW 14.4 % (10.5-14.5)
[2021-07-16 14:18] LABS: URINE BILIRUBIN NEGATIVE (Negative); URINE BLOOD 3+ (Negative); URINE CLARITY SL CLOUDY; URINE COLOR YELLOW; URINE GLUCOSE-RANDOM* 3+ (Negative); URINE KETONES NEGATIVE (Negative); URINE LEUKOCYTES-REFLEX NEGATIVE (Negative); URINE NITRITE-REFLEX NEGATIVE (Negative); URINE PROTEIN (DIPSTICK) 3+ (Negative); URINE UROBILINOGEN 0.2 E.U./dl (0.2-1.0)
[2021-07-16 14:26] LABS: CALCIUM 7.6 mg/dL (8.5-10.1); CREATININE 1.7 mg/dL (0.7-1.3)
[2021-07-16 14:31] LABS: BACTERIA-REFLEX 1-9 Few /HPF (None Seen); CASTS None Seen /LPF (None Seen); CRYSTALS None Seen /LPF (None Seen); SQUAMOUS 4-10 Moderate /LPF (0-3); URINE RBC >20 Many /HPF (NONE SEEN); URINE WBC-REFLEX 6-15 Few /HPF (0-5)
[2021-07-16] MEDS ORDERED: CEPHALEXIN500 MG PO (14:39)
[2021-07-16 14:40] VITALS: BP 196/87
== END 2021-07-16 14:40 | disposition home or self-care (01) ==
LOC: ER 13:14
PROVIDERS: Emergency Medicine
DX: R31.9 Hematuria, unspecified (principal); N39.0 Urinary tract infection, site not specified; E11.9 Type 2 diabetes mellitus without complications; Z95.1 Presence of aortocoronary bypass graft; Z79.4 Long term (current) use of insulin; Z79.891 Long term (current) use of opiate analgesic; Z79.899 Other long term (current) drug therapy; Z79.82 Long term (current) use of aspirin; Z88.8 Allergy status to other drugs, medicaments and biological substances